=== PATIENT | female | born 1965 | race Caucasian/White ===

== ENCOUNTER 2018-08-13 18:16 | Inpatient (IN) ==
[2018-08-13] MEDS ORDERED: SOLU-MEDROL IV ONE (18:53)
[2018-08-13] MEDS ORDERED: DUONEB (A & A) INH ONE (18:53)
[2018-08-13] MEDS ORDERED: MORPHINE IV ONE (18:53)
[2018-08-13] MEDS ORDERED: VANCOMYCIN 1 GM/NS 1 GM/250 ML IVPB IV ONE (18:53)
[2018-08-13] MEDS ORDERED: ZOFRAN IV ONE (18:53)
[2018-08-13] MEDS ORDERED: ZOSYN 4.5 GM in NS 100 ML IV ONE (18:53)
[2018-08-13 20:16] LABS: BASO# 0.03 X1000 (0.0-0.2); BASO% 1.4 % (0.0-0.8); EOS# 0.02 X1000 (0.0-0.7); EOS% 0.9 % (0.0-10.0); HEMOGLOBIN 10.2 g/dL (12.0-16.0); IMM GRAN# 0.18 X1000 (0.0-0.04); IMM GRAN% 8.5 % (0.0-0.5); LYMPH# 0.95 X1000 (1.2-3.4); LYMPH% 44.8 % (20.5-51.1); MCH 30.9 PG (27-31); MCV 90.9 FL (81-99); MONO# 0.02 X1000 (0.11-0.59); MONO% 0.9 % (1.7-9.3); MPV 9.5 FL (7.4-10.4); NEUT# 0.92 X1000 (1.4-6.5); NEUT% 43.5 % (42.2-75.2); PLT 129 X1000 (130-400); RDW 14.9 % (11.5-14.5); WBC 2.12 X1000 (4.8-10.8)
[2018-08-13 20:23] LABS: INR 0.97; PROTIME 13.7 Seconds (11.0-16.0)
[2018-08-13 20:33] LABS: AGAP 11; ALB/GLOB RATIO 1.1; ALKALINE PHOSPHATASE 107 U/L (32-104); BUN 11 mg/dL (8-22); CHLORIDE 101 mmol/L (98-107); CK PROFILE 24 U/L (24-173); COSMO 276; CREATININE 0.7 mg/dL (0.5-0.9); ESTIMATED GFR > 60; GLUCOSE 151 mg/dL (70-104); GOT 26 U/L (10-30); GPT 23 U/L (10-36); MAGNESIUM 1.7 mg/dL (1.5-2.7); POTASSIUM 4.1 mmol/L (3.5-5.1); SODIUM 137 mmol/L (136-145); TCO2 25 mmol/L (25-35); TOTAL BILIRUBIN 0.72 mg/dL (0.20-1.00); TOTAL PROTEIN 7.8 g/dL (6.3-8.3)
[2018-08-13 20:50] LABS: URINE SOURCE CLEAN CATCH
[2018-08-13 20:53] LABS: BILIRUBIN URINE NEGATIVE (NEGATIVE); BLOOD URINE TRACE (NEGATIVE); COLOR YELLOW; GLUCOSE URINE NEGATIVE (NEGATIVE); KETONE URINE NEGATIVE (NEGATIVE); LEUKOCYTES URINE NEGATIVE (NEGATIVE); NITRITE URINE NEGATIVE (NEGATIVE); PROTEIN URINE TRACE mg/dL (NEGATIVE); SP GRAVITY URINE 1.021; TURBIDITY URINE CLEAR (CLEAR); UROBILINOGEN URINE NORMAL (NORMAL)
[2018-08-13 20:54] LABS: UR EPITHELIAL CELLS <10 /HPF (<10); URINE BACTERIA NEGATIVE /HPF; URINE RBC <10 /HPF (<10); URINE WBC <10 /HPF (<10)
[2018-08-14] MEDS ORDERED: TYLENOL PO PRN (01:12)
[2018-08-14] MEDS ORDERED: VANCOMYCIN IV PER PHARMACY MISC SCH (01:15)
[2018-08-14] MEDS ORDERED: VANCOMYCIN 1,150 MG in NS 250 ML IV ONE (02:00)
[2018-08-14] MEDS ORDERED: NS 500 ML ONE (02:49)
[2018-08-14] MEDS: ZOSYN 3.375 GM in NS 50 ML IV SCH ×4 (05:08→23:50)
[2018-08-14] MEDS: DUONEB (A & A) INH SCH ×4 (05:52→22:50)
[2018-08-14] MEDS: HUMULIN R SUBQ SCH ×4 (06:41→21:28)
[2018-08-14 07:20] LABS: BASO# 0.01 X1000 (0.0-0.2); BASO% 0.9 % (0.0-0.8); HEMATOCRIT 26.4 % (37.0-47.0); HEMOGLOBIN 8.8 g/dL (12.0-16.0); LYMPH# 0.36 X1000 (1.2-3.4); MCH 30.8 PG (27-31); MCHC 33.3 g/dL (33-37); MCV 92.3 FL (81-99); MONO# 0.03 X1000 (0.11-0.59); MONO% 2.8 % (1.7-9.3); MPV 9.6 FL (7.4-10.4); NEUT# 0.66 X1000 (1.4-6.5); NEUT% 62.3 % (42.2-75.2); PLT 104 X1000 (130-400); RBC 2.86 XMIL (4.2-5.4); RDW 14.9 % (11.5-14.5); WBC 1.06 X1000 (4.8-10.8)
--- NOTE | 2018-08-14 07:24 | EKG Report ---
Test Performed on : 08/14/2018 07:06:21 AM Test Reason : Fever,Lung CA,Small Pericardial Effusion Blood Pressure : / mmHG Vent. Rate : 079 BPM Atrial Rate : 079 BPM P-R Int : 192 ms QRS Dur : 094 ms QT Int : 412 ms P-R-T Axes : 033 012 018 degrees QTc Int : 472 ms Normal sinus rhythm. Normal ECG When compared with ECG of 13-JUL-2018 13:23, Nonspecific T wave abnormality no longer evident in Anterolateral leads Confirmed by Erasmo COWART, Rizwan ([id number]) on 08/14/2018 9:08:54 AM
[2018-08-14 08:07] LABS: BANDS 8 % (0-1); LYMPHS 32 % (21-51); MONO 4 % (1-9); SEGS 56 % (42-75)
--- NOTE | 2018-08-14 08:14 | Diag Imaging Result Doc PS360 ---
EXAM: CT THORAX W/CONTRAST 08/13/2018 HISTORY: Fever,Productive Cough,Crackles Bilaterally TECHNIQUE: This exam was performed using automated exposure control, adjustment of mA or kV according to patient size, and/or use of iterative reconstruction technique. COMMENT: There are patchy and nodular opacities particularly in the left upper lobe.There are similar opacities in the right lower lobe There is atelectatic appearing opacity in the left lower lobe. Compared to the previous study of 06/09/2018 these abnormalities were largely not present previously although there was some opacification in the lingula at that time. The parahilar mass which was present at the time the previous examination has improved markedly. The matted mediastinal adenopathy is also improved considerably. There is some posterior mediastinal adenopathy with a node on the left side on image 59 measuring almost 13 mm in size. This has diminished since the previous examination from 14 x 15 mm. Hepatic steatosis is again noted. The visualized portions of the abdomen are otherwise stable in appearance. There is marked callus formation around a fracture in the posterior left ninth rib. In retrospect this was present at the time the previous study without the callus formation. Sclerotic and apparent lytic changes in the lower portion of C7 and the transverse process of T1 on the right are noted which were not clearly present at the time the previous CT of 05/25/2018. There is an apparent fracture of the right transverse process of T1. There is apparent callous in the medial right posterior seventh rib. This was not present at the time the previous study. The possibility of a fracture at the time the previous examination this location cannot be excluded however. IMPRESSION: Bronchopneumonia. Markedly improved left perihilar and mediastinal mass, improved adenopathy. Healing ninth rib fracture on the left. Bony abnormalities in C7, T1, and the right seventh rib as described above. Given the healing fracture on the left side, the possibility of additional traumatic lesions cannot be excluded. The possibility of metastatic disease in the skeleton cannot be excluded. Hepatic steatosis. Electronically signed by Hector Mercado 08/14/2018 8:13 AM
--- NOTE | 2018-08-14 08:45 | HISTORY AND PHYSICAL ---
PRIMARY CARE PROVIDER: Dr. Prince Garcia in [place], [place]. DATE AND TIME: 08/13/2018 at 2215. CHIEF COMPLAINT: Fever. HISTORY OF PRESENT ILLNESS: Ms Barclay is a 53-year-old female, who has a past medical history most notable for her recent diagnosis of lung cancer with metastasis to liver and lymph nodes. Currently, receiving chemotherapy on Mondays, Tuesdays and Tuesday, and is followed by Dr. Jaffe. The patient states that on Tuesday she began not feeling well. She states that she has just progressively felt worse since then. She is reporting symptoms of dizziness, headache, productive cough and fevers which she states has reached up to as high as 100.6 at home. The patient also does report some chest discomfort when she coughs. She also has been having nausea with frequent episodes of vomiting. Patient states that she may have become choked at times due to vomiting and coughing at the same time. She states that on Tuesday when she began feeling not well, she did go ahead and take some Levaquin tablets that she had from a previous prescription. She states she did receive what sounds to be a Neupogen injection on and did see her family doctor on Tuesday for which she did write her a prescription for Levaquin to continue what she already previously start taking. The patient states that she did continue to feel worse and did present to the ER for further evaluation. She denies any chest pain, shortness of breath, abdominal pain, dysuria or urinary frequency. She denies any pain, numbness, tingling or swelling in the extremities. She denies any previous history of known gastrointestinal bleeding or any history of having DVT or pulmonary embolism. Upon evaluation in the ER, the patient did have a low-grade temperature on arrival of 99.8. She was tachycardic as well with a heart rate of 135. Respirations were 20, blood pressure 114/76 and was 95% on room air. The patient's laboratories revealed that she did have a neutropenia noted with a white blood cell count of 2120. She does have an absolute neutrophil count of 1102. She is a little anemic as well. She is hemodynamically stable at this time with a hemoglobin of 10.2 and an hematocrit of 30. Her blood sugars were pretty unremarkable, she was slightly hyperglycemic with a glucose level of 181. Given her respiratory symptoms, I am going to go ahead and get a CT of the thorax with contrast which did show a significant interval improvement of left hilar mass and a mediastinal adenopathy. The bony osseous lesion is similar to previous study. There was a new focal right lower lobe consolidation. We did obtain a blood culture, sputum culture and urine culture. The patient has been placed with antibiotic coverage of Vancomycin and Zosyn. The patient has reported he had nausea and vomiting and states she have may have become choked during her vomiting episode. Given this, we did decide to give her coverage from Zosyn for possible aspiration pneumonia. The patient was then placed on inpatient admission to the medical floor for treatment and evaluation of a possible pneumonia, the findings of a right lower lobe consolidation, fever and neutropenia. REVIEW OF SYSTEMS: A 14 point review of systems was conducted with the patient and all were negative. All pertinent positives mentioned in the HPI. PAST MEDICAL HISTORY: 1. Hypertension. 2. Anxiety. 3. Diabetes Mellitus type 2. 4. Recent diagnosis of lung cancer with metastasis to liver and lymph nodes. She is currently receiving chemotherapy on Mondays, Tuesdays, and Wednesdays with Dr. Jaffe. PAST SURGICAL HISTORY: 1. Cervical fusion in the neck. 2. Tummy tuck in 2015. 3. Cholecystectomy in 2002. 4. Tubal ligation in 1990. 5. Lung biopsy which was performed in June. SOCIAL HISTORY: The patient is a former smoker. She quit smoking three years ago. There is no known alcohol or drug use. FAMILY HISTORY: Positive for her mother having diabetes mellitus. Her father secondary to mesothelioma lung cancer. This was thought to be secondary to environmental exposure from where he worked for 24 years. She does have one sister who is currently being treated for breast cancer. ALLERGIES: Latex stating it causes her to have skin irritation. HOME MEDICATIONS: 1. Coreg 25 mg p.o. b.i.d. 2. Levaquin, 500 mg p.o. daily. 3. Reglan 10 mg p.o. q.6 h. p.r.n. for nausea. 4. Zofran 4 mg p.o. q.6 h. p.r.n. 5. Oxycodone sustained release p.o. q.12 h. 6. Promethazine/codeine 6.25/10 mg per 5 mL suspension. 5 mL p.o. q.4 h. p.r.n. for cough. 7. Phenergan 25 mg p.o. q.6 h. p.r.n. for nausea. 8. Kombiglyze XR 09/999 mg tablet, 1000 mg p.o. b.i.d. DIAGNOSTIC DATA/LABORATORY RESULTS: White blood cell count is 2120. Hemoglobin 10.2, hematocrit 30. Platelet count is 129,000. Absolute neutrophil count is 1102. PT 13.7, INR 0.9, PTT is 32. Sodium 137, potassium 4.1, chloride 101, serum bicarb is 25, BUN 11, creatinine 0.7, glucose 151, calcium 9, magnesium 1.7. Liver function tests were within normal limits. Her alkaline phosphatase is slightly elevated at 107, CK 24, troponin less than 0.01. Plasma lactate is 1.4. Urinalysis obtained via clean catch with positive for trace protein and trace blood. It was negative for glucose, ketones, nitrite, bilirubin, leukocytes, white blood cells and bacteria. A CT of the chest and thorax showed significant improvement of left hilar mass and mediastinal adenopathy. Also was noted to suspect bony osseous lesions similar to previous study. There was noted a new focal right lower lobe consolidation. There is a stable fatty liver. There was also noted to be a small pericardial effusion. PHYSICAL EXAMINATION: VITAL SIGNS: Temperature 98.1, heart rate 98, respirations 16, blood pressure 111/69, oxygen saturation is 97% on nasal cannula at 3 L. GENERAL: Ms. Barclay is a very pleasant, 53-year-old female. She was resting in the ER stretcher. She was in no acute distress. She was awake, alert, and able to answer questions appropriately. HEENT: Head is atraumatic, normocephalic. Pupils are equal, round, reactive to light, were 3 mm bilaterally and brisk. Oral mucosa is moist. Oropharynx clear. NECK: Supple. Trachea midline. CARDIOVASCULAR: The patient has S1-S2 present. No murmurs, gallops, or rubs appreciated with a regular rate and rhythm. PULMONARY: Patient has symmetrical chest expansion bilaterally. Lung sounds in bilateral full gusman did sound coarse. She does have crackles noted in upper and mid lung gusman. She does have diminished lung sounds noted in bilateral bases. ABDOMEN: Soft, nontender. Nondistended. Bowels sounds are present in all four quadrants and normoactive. EXTREMITIES: No cyanosis, clubbing, or edema noted. Pulse and sensory were intact in all extremities. Radial pulses and pedal pulses are 2+ bilaterally. INTEGUMENTARY: The patient's skin is pink, warm and dry. NEUROLOGIC: The patient is alert and oriented to person, place, time and situation. She is able to move all extremities. She does not have any focal neurological deficits noted. ASSESSMENT AND PLAN: 1. Neutropenia. The patient reports that she has been having low grade fevers, though she did have a reading one day that got as high as 100.6. She does have associated symptoms of fever, productive cough, abnormal lung sounds as described above with findings on CT of her right lower lobe consolidation. We have placed her with antibiotic coverage of Zosyn and vancomycin for possible pneumonia. Her blood culture, sputum culture and urine culture have all been obtained. We have placed on neutropenic precautions and we will continue to follow closely. 2. Right lower lobe consolidation. Given the patient's reported symptoms we are going to go ahead and treat her for possible pneumonia. We did place her with antibiotic coverage of vancomycin and Zosyn given that she may have possible aspiration. The patient has had reported several episodes of nausea and vomiting and did state that she has become choked at times during these episodes. As mentioned above. We have obtained blood cultures and sputum cultures. We will await those results. Continue to follow. We will continue with aggressive pulmonary toilet with incentive spirometry q.2 h of turn, cough and deep breathing, scheduled DuoNeb treatments, as well as Mucinex Tessalon Perles for cough. We will continue to follow her respiratory status closely. 3. Nausea and vomiting. This may be likely secondary to administration of chemotherapy. The patient does not have any abdominal pain. She denies any abdominal tenderness or pain on palpation. Bowel sounds were present in the upper quadrant. She has not had any diarrhea either. We have placed p.r.n. medicines for nausea and vomiting. 4. Metastatic lung cancer. We have placed a consult with Dr. Jaffe and we will await his evaluation and further recommendations for management. 5. Hypertension. We will continue her regularly prescribed Coreg. 6. Diabetes mellitus type 2. We have placed the patient with a sliding scale insulin per low dose protocol. We will do pattern blood sugars. At this time we have held her regularly prescribed Kombiglyze due to she received IV contrast for her CT thorax. 7. Deep venous thrombosis prophylaxis. We have provided SCDs. The patient has been placed on medical telemetry. She will have vital signs q.4 h., intake and output. We will repeat a CBC and CMP in the morning. There was an incident of a small pericardial effusion on her CT of the thorax. Given this we will order for an echocardiogram and an EKG to be performed as the patient is now reporting some chest discomfort when she coughs. When she is not coughing, she is denying any chest pain. Cardiac enzymes were negative. Other orders and recommendations pending hospital course, diagnostic studies and physician evaluation. Dictated by WINDY Garza for Shola Ceballos MD Addendum: Patient seen and examined by myself. Agree with WINDY note. It reflects my assessment and plan. Patient is being admitted for neutropenic fever. Will star broad spectrum IV antibiotics and will consult her primary oncologist. Will monitor patient closely. cc: Shola Ceballos MD MTD
[2018-08-14 10:00] LABS: AGAP 10; ALB/GLOB RATIO 0.9; ALBUMIN 3.7 g/dL (3.5-5.0); ALKALINE PHOSPHATASE 100 U/L (32-104); BUN 15 mg/dL (8-22); CALCIUM 8.8 mg/dL (8.8-10.2); CHLORIDE 99 mmol/L (98-107); COSMO 275; CREATININE 0.7 mg/dL (0.5-0.9); ESTIMATED GFR > 60; GLUCOSE 299 mg/dL (70-104); GOT 21 U/L (10-30); GPT 21 U/L (10-36); POTASSIUM 4.4 mmol/L (3.5-5.1); SODIUM 131 mmol/L (136-145); TCO2 22 mmol/L (25-35); TOTAL BILIRUBIN 0.44 mg/dL (0.20-1.00); TOTAL PROTEIN 7.6 g/dL (6.3-8.3)
--- NOTE | 2018-08-14 12:04 | PROGRESS NOTE ---
DATE: 08/14/2018 SUBJECTIVE: This patient is feeling better compared with yesterday. She is still complaining of shortness of breath and cough. Apparently, she started having symptoms last week. She went to her primary care doctor and she was treated for bronchitis. She received levofloxacin but over the weekend, she got worse and she decided to come to the hospital. She does have a history of lung cancer with metastasis to the liver and lymph nodes. She is currently receiving chemotherapy. Hematology/oncology department has been consulted. OBJECTIVE: Vital Signs: Temperature 97.6 degrees, pulse 103, respiratory rate 18, blood pressure 105/70, oxygen saturation 99 on 2 L of nasal cannula. HEENT: Head normocephalic. No trauma. PERRLA. Neck: Supple. No JVD. No masses. Central trachea. Chest: Decreased breath sounds, mostly at the bases with bilateral rhonchi, some scattered expiratory wheezing bilaterally. Abdomen: Soft, nontender, nondistended. No hepatosplenomegaly. Extremities: No edema, no clubbing, no cyanosis. Neurological Examination: The patient is alert. She is oriented x3. No focal deficits. Laboratory: WBC 1, hemoglobin 8.8, hematocrit 26.4, platelets 104,000. Sodium 131, potassium 4.4, chloride 99, bicarbonate 22, BUN 15, creatinine 0.7, glucose 299, calcium 8.8. ASSESSMENT AND PLAN: 1. Pneumonia. We have placed this patient on broad-spectrum antibiotics and she feels better now but she is still complaining of shortness of breath and cough. We will continue with the same management. We will continue to monitor this patient closely. Continue breathing treatments, incentive spirometer, cough medication, and oxygen. 2. Pancytopenia. We will continue to monitor this patient. We will get lab work on a daily basis. Hematology/oncology has been consulted and Granix has been placed in the orders for this patient. We will monitor. 3. Nausea and vomiting, resolved. We will continue with nausea medication. 4. Metastatic lung cancer. Aware. Dr. Jaffe will follow this patient. It looks like the size of the tumor decreased. 5. Hypertension. Continue with her regular prescribed medication. 6. Type 2 diabetes. Continue sliding scale insulin and pattern of blood sugar. 7. Deep vein thrombosis prophylaxis with sequential compression devices. cc: Kemal Leslie MD
[2018-08-14] MEDS: GRANIX SUBQ SCH (12:17)
[2018-08-14] MEDS: MUCINEX PO SCH ×2 (12:17→20:28)
[2018-08-14] MEDS: PERCOCET-5 PO PRN ×2 (12:39→20:28)
[2018-08-14] MEDS ORDERED: VANCOMYCIN 1,850 MG in NS 500 ML IV SCH (14:00)
[2018-08-14] MEDS: COREG PO SCH ×2 (17:01→21:28)
[2018-08-14] MEDS: NS 1,000 ML IV SCH ×2 (17:16→17:17)
[2018-08-14] MEDS: VANCOMYCIN 1,500 MG in NS 250 ML IV SCH (20:29)
--- NOTE | 2018-08-14 20:32 | HEMO/ONC CONSULTATION ---
DATE: 08/14/2018 CHIEF COMPLAINT: We have been consulted for further evaluation of the patient's right lower lobe pneumonia with neutropenia, fever, and management of her small cell lung cancer. HISTORY OF PRESENT ILLNESS: Ms. Barclay is a 53-year-old female who presented to the ER complaining of a low-grade temperature of 100.6 degrees while at home. The patient says she had been having some dizziness, headaches, productive cough as well. Patient also says she has some chest discomfort when she coughs. The patient also had increased amounts of nausea with frequent episodes of vomiting. The patient went ahead and started Levaquin at home. The patient continued to feel worse and came to the ER for further evaluation, and was admitted at that time for neutropenic fever and right lower lobe pneumonia. Ms. Barclay is known to us in our clinic where she follows up for her extensive end-stage small cell lung cancer. The patient had a CT scan that revealed a left upper lobe mass measuring 8.3 x 10 cm with medi[address]inal invasion. CT of the abdomen and pelvis revealed retrocrural peripancreatic lymph nodes and peripherally enhancing liver lesions, nodule of the liver with splenomegaly suggestive of cirrhosis. The patient was started on chemotherapy with carboplatin, etoposide, and Tecentriq on 06/16/2018. The patient received her 3rd cycle of treatment on 08/07/2018. She did receive a Udenyca injection on 08/10/2018. PAST MEDICAL HISTORY: 1. Hypertension. 2. Diabetes mellitus type 2. 3. Metastatic small-cell lung cancer. PAST SURGICAL HISTORY: Cervical fusion of the neck, tummy tuck, cholecystectomy, tubal ligation, and a lung biopsy. SOCIAL HISTORY: Former smoker, quit smoking approximately 3 years ago. No alcohol or illicit drug use. FAMILY HISTORY: Diabetes mellitus, mesothelioma, lung cancer, and a sister currently being treated for breast cancer. ALLERGIES: To latex. HOME MEDICATIONS: Coreg, Levaquin, Reglan, Zofran, oxycodone, promethazine/codeine, Phenergan, Kombiglyze XR. REVIEW OF SYSTEMS: Negative or as mentioned in the HPI. PHYSICAL EXAMINATION: Vital Signs: Temperature 97.6 degrees, heart rate 83, respiratory rate 20, blood pressure 106/66, saturating 95% on nasal cannula. General: The patient is awake, lying in bed. No acute distress noted. HEENT: Anicteric. Pupils PERRLA. Mucous membrane appear to be moist. Neck: Supple. Trachea midline. No JVD. Lymph Node Survey: Without palpable lymphadenopathy. Cardiovascular: S1, S2. Regular rate and rhythm. Chest: Bilateral breath sounds coarse bilaterally. The patient has some crackles noted. Abdomen: Soft, nontender. Bowel sounds present in all 4 quadrants. Skin: Warm, dry, and intact. Neurologic: Alert and oriented x3. No focal deficits noted. LABORATORY DATA: White blood cell count is 1.06, hemoglobin 8.9, hematocrit 26.4, platelets are 104,000, ANC of 660. Potassium 4.4, BUN 15, creatinine 0.7. CTA of chest shows bronchopneumonia, markedly improved left perihilar mediastinal mass, improved adenopathy, healing ninth rib fracture on the left, bony abnormalities in C7-T1. ASSESSMENT AND PLAN: 1. Extensive small-cell lung cancer: The patient received her third cycle of etoposide, carboplatin, and Tecentriq on 08/07/2018. The patient had been tolerating treatment relatively well. At this time, we will continue to monitor and let the patient heal. 2. Neutropenic fever: The patient did receive Udenyca shot on 08/10/2018. Despite that, the patient developed pneumonia with fever. Patient will receive Neupogen today and tomorrow. Then we will reevaluate after that if she needs further Neupogen shots. 3. Right lower lobe pneumonia: Continue antibiotics as ordered by primary medical team. Continue with oxygen, as ordered. We will continue to monitor closely. 4. Nausea and vomiting: Continue with as needed medications as ordered. We will continue to monitor closely. 5. Hypertension: Aware. Continue recommendations per primary medical team. 6. Diabetes mellitus type 2.: Continue recommendations per primary medical team. 7. Deep venous thrombosis prophylaxis: Continue sequential compression devices. Continue to have patient get out of bed as much as possible. Plan of care discussed with Dr. Casillas. Dictated by WINDY Montes for Yefri Casillas MD As above. Yefri casillas MD. cc: WINDY Montes MD [facility]
[2018-08-15] MEDS: DUONEB (A & A) INH SCH ×4 (04:00→22:10)
[2018-08-15] MEDS: ZOSYN 3.375 GM in NS 50 ML IV SCH ×4 (06:41→23:11)
[2018-08-15] MEDS: HUMULIN R SUBQ SCH ×3 (07:00→16:12)
[2018-08-15 07:14] LABS: AGAP 10; ALBUMIN 3.2 g/dL (3.5-5.0); ALKALINE PHOSPHATASE 78 U/L (32-104); BUN 17 mg/dL (8-22); CALCIUM 8.5 mg/dL (8.8-10.2); CHLORIDE 107 mmol/L (98-107); COSMO 283; CREATININE 0.7 mg/dL (0.5-0.9); ESTIMATED GFR > 60; GLUCOSE 141 mg/dL (70-104); GOT 16 U/L (10-30); GPT 17 U/L (10-36); POTASSIUM 3.8 mmol/L (3.5-5.1); SODIUM 140 mmol/L (136-145); TCO2 23 mmol/L (25-35); TOTAL BILIRUBIN 0.18 mg/dL (0.20-1.00); TOTAL PROTEIN 6.3 g/dL (6.3-8.3)
[2018-08-15 07:20] LABS: EOS# 0.03 X1000 (0.0-0.7); EOS% 2.1 % (0.0-10.0); HEMOGLOBIN 7.5 g/dL (12.0-16.0); LYMPH# 1.16 X1000 (1.2-3.4); LYMPH% 80.6 % (20.5-51.1); MCH 30.7 PG (27-31); MCHC 32.6 g/dL (33-37); MCV 94.3 FL (81-99); MONO# 0.04 X1000 (0.11-0.59); MONO% 2.8 % (1.7-9.3); MPV 9.5 FL (7.4-10.4); NEUT% 14.5 % (42.2-75.2); PLT 66 X1000 (130-400); RBC 2.44 XMIL (4.2-5.4); RDW 14.9 % (11.5-14.5); WBC 1.44 X1000 (4.8-10.8)
[2018-08-15 07:21] LABS: NEUT# 0.21 X1000 (1.4-6.5)
[2018-08-15] MEDS: MUCINEX PO SCH ×2 (08:02→21:32)
[2018-08-15] MEDS: COREG PO SCH ×3 (08:02→21:32)
[2018-08-15] MEDS: PERCOCET-5 PO PRN ×3 (08:03→21:32)
[2018-08-15] MEDS: GRANIX SUBQ SCH (08:12)
--- NOTE | 2018-08-15 10:01 | HEMO/ONC PROGRESS NOTE ---
DATE: 08/15/2018 SUBJECTIVE: Patient says she feels slightly better. Still has some shortness of breath on cough. OBJECTIVE: Vital Signs: Temperature 97.5 degrees, heart rate 87, respiratory rate 16, blood pressure 106/59, satting 100% on nasal cannula. General: Patient is awake, lying in bed, no acute distress noted. HEENT: Anicteric. Pupils PERRLA. Mucous membranes moist. Cardiovascular: S1, S2. Regular rate and rhythm. Chest: Bilateral breath sounds. Clear to auscultation. Abdomen: Soft, nontender. Bowel sounds present in all 4 quadrants. Neurologic: Alert and oriented x3. No focal deficits noted. LABORATORY DATA: White blood cell count 1.44, hemoglobin 7.5, hematocrit 23.0, platelets are 66. ANC is 210. Potassium 3.8, BUN 17, creatinine 0.7. ASSESSMENT AND PLAN: 1. Small cell lung cancer: Continue to monitor as patient gets over pneumonia. 2. Neutropenic fever: Patient received Neupogen yesterday, received again today. Continue to monitor closely for any further fevers. No fevers in the last 24 hours. We will continue to monitor closely. 3. Pancytopenia: Caused by her chemotherapy last week. Continue to monitor transfuse as needed. 4. Right lower lobe pneumonia: Continue antibiotics as ordered. 5. Nausea and vomiting. Nausea and vomiting has improved. Continue p.r.n. medications as ordered. 6. Deep venous thrombosis prophylaxis. Continue to get the patient up out of bed as much as possible. Dictated by WINDY Montes for Yefri Casillas MD As above. Persistent neutropenia. Continue supportive care and antibiotics. Doing better. Afebrile. Yefri casillas MD cc: WINDY Montes MD [facility]
--- NOTE | 2018-08-15 11:21 | ECHO REPORT ---
ORDER DATE: 08/14/2018 INDICATION: Pericardial effusion noted on CT, pneumonia, metastatic lung cancer. FINDINGS: 1. The right atrium appears normal size at 3.7 cm. 2. Mild tricuspid regurgitation, RV systolic pressure of 34. 3. Normal RV size and systolic function. 4. Trace pulmonic insufficiency. 5. The left atrial size appears normal. The dimension is 4 cm, but the volume index is 16. 6. No mitral valve prolapse. Mild mitral regurgitation. 7. Normal LV size, end-diastolic dimension of 3.8. Mild left ventricular hypertrophy with a posterior and interventricular septal wall thickness of 1.3 cm each. Normal LV systolic function. Estimated EF of 60% to 65% with normal wall motion. 8. The aortic valve opens well. It is trileaflet. There is no evidence of stenosis or insufficiency. 9. The aorta appears normal in visualized segments. 10. There is a predominantly anterior echo-free space identified, which appears most consistent with pericardial fat. There is no clear evidence of a significant pericardial effusion with no clear evidence of tamponade-type physiology. If there is a pericardial effusion present (as suggested on CT), it is extremely small and does not seem clinically significant. cc: Kody Mejia MD MTDD
--- NOTE | 2018-08-15 11:21 | PROGRESS NOTE ---
DATE: 08/15/2018 SUBJECTIVE: The patient reports breathing a little bit better. Denies any fever or chills. No acute issues noted as per nursing staff overnight. OBJECTIVE: Vital signs: Temperature 97.5, heart rate 89, respiratory rate 16, blood pressure 106/59, O2 saturation is 100% on 2 L nasal cannula. General: This is a chronically ill appearing 53-year-old female lying in bed, in no acute distress. HEENT: Head is normocephalic and atraumatic with mucus membranes dry. Neck: No JVD noted, no carotid bruit, no lymphadenopathy, no thyromegaly. Cardiovascular: S1, S2 heard. No murmurs, gallops or rubs. Regular rate and rhythm. Respiratory: Good breath sounds, mostly at both bases, bilateral rhonchi and expiratory wheezing. The patient is not using any accessory muscles or work of breathing. Abdomen: Soft. Nontender to palpation. Not distended. Bowel sounds present. No organomegaly. Extremities: No cyanosis, clubbing or edema. Peripheral pulses present in both legs. Neurologic: The patient is alert and oriented x3, moves all four extremities. LABORATORY DATA: White cell count 1.44 with hemoglobin 7.5, hematocrit 23.0, platelets 66,000. Neutrophil count 0.21. BMP - glucose 141. ASSESSMENT AND PLAN: 1. Acute bronchopneumonia. The patient is on vancomycin and Zosyn. Clinically this patient is feeling better. Will continue with same management. 2. Pancytopenia most likely related to chemotherapy. Patient receiving Granix, unfortunately his white cell count is still low as well as his neutrophil count. Will continue to check basic metabolic profile. Also, hemoglobin is low at 7.5, am concerned that her first hemoglobin was 10.1, definitely will transfuse one unit of blood. 3. Nausea and vomiting, getting better definitely. 4. Metastatic lung cancer. Dr. Jaffe is following with this patient. Will follow recommendations. 5. Hypertension. Blood pressure is under control. Will continue with same management. 6. Diabetes mellitus, type 2. Will continue with sliding scale insulin and Accu-Chek before meals and also at bedtime. 7. Deep venous thrombosis prophylaxis with sequential compression devices. cc: Shola Ceballos MD [facility]ydia
[2018-08-15] MEDS ORDERED: NS 500 ML IV SCH (15:00)
[2018-08-15] MEDS: VANCOMYCIN 1,500 MG in NS 250 ML IV SCH (19:47)
[2018-08-15] MEDS: TESSALON PO PRN (21:39)
[2018-08-16] MEDS: DUONEB (A & A) INH SCH ×4 (03:15→21:30)
[2018-08-16] MEDS: HUMULIN R SUBQ SCH ×5 (03:35→21:16)
[2018-08-16] MEDS: ZOSYN 3.375 GM in NS 50 ML IV SCH ×4 (06:05→21:14)
[2018-08-16 07:03] LABS: AGAP 7; BUN 13 mg/dL (8-22); CALCIUM 8.6 mg/dL (8.8-10.2); CHLORIDE 105 mmol/L (98-107); COSMO 278; CREATININE 0.6 mg/dL (0.5-0.9); ESTIMATED GFR > 60; GLUCOSE 140 mg/dL (70-104); POTASSIUM 3.6 mmol/L (3.5-5.1); SODIUM 138 mmol/L (136-145); TCO2 26 mmol/L (25-35)
[2018-08-16 07:23] LABS: EOS# 0.03 X1000 (0.0-0.7); EOS% 1.8 % (0.0-10.0); HEMATOCRIT 26.5 % (37.0-47.0); HEMOGLOBIN 8.7 g/dL (12.0-16.0); LYMPH# 1.39 X1000 (1.2-3.4); LYMPH% 82.2 % (20.5-51.1); MCH 30.7 PG (27-31); MCHC 32.8 g/dL (33-37); MCV 93.6 FL (81-99); MONO# 0.15 X1000 (0.11-0.59); MONO% 8.9 % (1.7-9.3); MPV 9.9 FL (7.4-10.4); NEUT% 7.1 % (42.2-75.2); PLT 48 X1000 (130-400); RBC 2.83 XMIL (4.2-5.4); RDW 14.8 % (11.5-14.5); WBC 1.69 X1000 (4.8-10.8)
[2018-08-16 08:04] LABS: NEUT# 0.12 X1000 (1.4-6.5)
--- NOTE | 2018-08-16 08:24 | HEMO/ONC PROGRESS NOTE ---
DATE: 08/16/2018 SUBJECTIVE: Patient says she still continues to feel better. Shortness of breath continues to improve. Patient denies any fevers or chills. OBJECTIVE: Vital Signs: Temperature 98.4, heart rate 90, respiratory rate 20, blood pressure 113/72, sat 100% on room air. General: Patient is awake, lying in bed, in no acute distress noted. HEENT: Anicteric. Pupils PERRLA. Mucous membranes moist. Cardiovascular: S1, S2. Regular rate and rhythm. Chest: Bilateral breath sounds clear to auscultation. Abdomen: Soft, nontender. Bowel sounds present in all 4 quadrants. Neurologic: Alert and oriented x3. No focal deficits noted. LABORATORY DATA: White blood cell count 1.69, hemoglobin 8.7, hematocrit 26.5, platelets are 48,000. ANC is 120. Potassium 3.6, BUN 13, creatinine 0.6. ASSESSMENT AND PLAN: 1. Small-cell lung cancer: Continue to monitor as patient improves. 2. Neutropenia: The patient will continue on her Granix daily until ANC is greater than 1,000. The patient denies any fevers. We will continue to monitor closely. 3. Pancytopenia: Caused by chemotherapy last week. Continue to monitor closely. Transfuse as needed. 4. Pneumonia: Continue antibiotics as ordered. 5. Deep venous thrombosis prophylaxis: Continue out of bed as much as possible. 6. Supportive care: The patient will continue protein shakes as instructed. The patient will continue exercises. Dictated by WINDY Montes for Yefri Jaffe MD As above. Patient continues to be neutropenic. Continue Neupogen. Continue current management. Yefri Jaffe M.D. [facility]
[2018-08-16 08:26] LABS: EOS 2 % (1-10); LYMPHS 78 % (21-51); MONO 8 % (1-9); SEGS 10 % (42-75)
[2018-08-16] MEDS: GRANIX SUBQ SCH (09:29)
[2018-08-16] MEDS: MUCINEX PO SCH ×2 (09:30→21:16)
[2018-08-16] MEDS: TESSALON PO PRN ×3 (09:38→21:16)
[2018-08-16] MEDS: COREG PO SCH ×2 (09:39→21:15)
[2018-08-16] MEDS: VANCOMYCIN 1,500 MG in NS 250 ML IV SCH (14:16)
[2018-08-16] MEDS: MYCOLOG CREAM TOP SCH ×2 (14:17→17:01)
--- NOTE | 2018-08-16 17:44 | PROGRESS NOTE ---
DATE: 08/16/2018 INTERVAL HISTORY: The patient still has some largely nonproductive cough. No further dyspnea. Afebrile overnight. No acute events. No new complaints. REVIEW OF SYSTEMS: Twelve-point review of systems negative except as per interval history. LABORATORY DATA: WBC 1.69, hemoglobin 8.7, hematocrit 26.5, absolute neutrophil count 120. Basic metabolic panel unremarkable aside from glucose 149 PHYSICAL EXAMINATION: Vitals: T-max 98.4 degrees, pulse 91, respirations 20, blood pressure 115/75, O2 saturation 97% on room air. General: No acute distress. Chronically ill-appearing. Vitals: As above. HEENT: Normocephalic, atraumatic. Moist mucous membranes. Neck: No cervical adenopathy. Cardiovascular: Regular rate and rhythm. No murmurs, rubs, or gallops. Pulmonary: Good air entry. No wheezing at this time. A few scattered rhonchi. No accessory muscle use or increased work of breathing. Abdomen: Soft, nontender, nondistended. Bowel sounds positive. Extremities: Peripheral pulses intact. No clubbing, cyanosis, or edema. Neurologic: Cranial nerves grossly intact. No focal deficits identified. Psychiatric: Slightly tearful, but otherwise normal mood and affect. Awake, alert, and oriented x3. Skin: No rashes or lesions identified. ASSESSMENT AND PLAN: 1. Pneumonia. Patient remains on vancomycin and Zosyn. The patient was much improved symptomatically. Saturating well on room air. Continue broad-spectrum antibiotics for now given neutropenia. Once white count improves, can likely transition to p.o. antibiotics. 2. Pancytopenia, likely chemo related. The patient receiving G-CSF, but counts remain quite low. Remains still severe neutropenic currently. Slightly worsened today. Oncology following. Planning on continuing Granix doses neutrophils improve. 3. Nausea and vomiting, resolved. 4. Stage IV lung cancer following with Dr. Jaffe. Patient with recent chemotherapy. 5. Hypertension, reasonable control so far. Continue to monitor. 6. Diabetes mellitus. Good control blood sugars so far. Continue SSI and monitor. 7. Situational depression. Patient requesting that we restart her Zoloft. We will clarify home dose and restart.
[2018-08-16] MEDS: PERCOCET-5 PO PRN (21:14)
[2018-08-17] MEDS: ZOSYN 3.375 GM in NS 50 ML IV SCH ×4 (01:16→21:42)
[2018-08-17] MEDS: DUONEB (A & A) INH SCH ×4 (03:45→21:25)
[2018-08-17] MEDS: PERCOCET-5 PO PRN ×2 (04:19→11:19)
[2018-08-17] MEDS: ZOFRAN IV PRN (05:35)
[2018-08-17 08:01] LABS: BASO# 0.01 X1000 (0.0-0.2); BASO% 0.4 % (0.0-0.8); EOS# 0.03 X1000 (0.0-0.7); EOS% 1.3 % (0.0-10.0); HEMATOCRIT 26.6 % (37.0-47.0); IMM GRAN# 0.17 X1000 (0.0-0.04); IMM GRAN% 7.3 % (0.0-0.5); LYMPH# 1.53 X1000 (1.2-3.4); LYMPH% 65.4 % (20.5-51.1); MCH 31.3 PG (27-31); MCHC 33.8 g/dL (33-37); MCV 92.4 FL (81-99); MONO# 0.43 X1000 (0.11-0.59); MONO% 18.4 % (1.7-9.3); MPV 10.7 FL (7.4-10.4); NEUT% 7.2 % (42.2-75.2); PLT 47 X1000 (130-400); RBC 2.88 XMIL (4.2-5.4); RDW 14.5 % (11.5-14.5); WBC 2.34 X1000 (4.8-10.8)
[2018-08-17 08:05] LABS: AGAP 11; BUN 11 mg/dL (8-22); CALCIUM 8.8 mg/dL (8.8-10.2); CHLORIDE 102 mmol/L (98-107); COSMO 278; CREATININE 0.7 mg/dL (0.5-0.9); ESTIMATED GFR > 60; GLUCOSE 155 mg/dL (70-104); POTASSIUM 3.3 mmol/L (3.5-5.1); SODIUM 138 mmol/L (136-145); TCO2 25 mmol/L (25-35)
[2018-08-17 08:30] LABS: LYMPHS 66 % (21-51); MONO 4 % (1-9); NRBC 1 % (0-0); SEGS 28 % (42-75)
--- NOTE | 2018-08-17 08:34 | HEMO/ONC PROGRESS NOTE ---
DATE: 08/17/2018 SUBJECTIVE: Shortness of breath continues to improve. Patient continues to have cough. No new complaints. OBJECTIVE: Vital Signs: Temperature 97.8 degrees, heart rate 89, respiratory rate 18, blood pressure 116/73, satting 96% on room air. General: Patient is awake, lying in bed, no acute distress noted. HEENT: Anicteric. Pupils PERRLA. Mucous membranes moist. Cardiovascular: S1, S2. Regular rate and rhythm. Chest: Bilateral breath sounds. Clear to auscultation. Abdomen: Soft, nontender. Bowel sounds present all 4 quadrants. Neurologic exam: Alert and oriented x3. No focal deficits noted. LABORATORY DATA: White cell count 2.34, hemoglobin 9.0, hematocrit 26.6, platelets are 47. ANC is 170, potassium 3.3, BUN 11, creatinine 0.7. ASSESSMENT AND PLAN: 1. Small cell lung cancer: Continue to monitor outpatient for pneumonia. 2. Neutropenia: The patient will continue getting her Granix until ANC is greater than 1000. The patient denies any fevers. Continue to monitor closely. 3. Pneumonia: Continue antibiotics as ordered per primary medical team. 4. Pancytopenia: Continue to monitor counts, most likely caused by her chemotherapy last week. 5. Deep venous thrombosis prophylaxis: Continue to have patient get out of bed as much as possible. Dictated by WINDY Montes for Yefri Jaffe MD Patient seen and examined. As above. Patient continues to have neutropenia. Continue with next. Continue antibiotics. She is afebrile. Symptomatically feels better. Thrombocytopenia, most likely due to chemotherapy. Hopefully we can discharge were as soon as her ANC improves. Yefri Jaffe M.D. [facility]
[2018-08-17] MEDS: HUMULIN R SUBQ SCH ×3 (08:43→17:15)
[2018-08-17] MEDS ORDERED: FLEXERIL PO PRN (10:54)
[2018-08-17] MEDS: GRANIX SUBQ SCH (11:44)
[2018-08-17] MEDS: VANCOMYCIN 1,500 MG in NS 250 ML IV SCH (11:44)
[2018-08-17] MEDS: MUCINEX PO SCH ×2 (11:45→21:42)
[2018-08-17] MEDS: ATIVAN PO PRN ×2 (11:59→20:26)
[2018-08-17] MEDS: TESSALON PO PRN ×2 (11:59→21:42)
[2018-08-17] MEDS ORDERED: NS 1,000 ML ONE (12:08)
[2018-08-17] MEDS: COREG PO SCH ×2 (12:10→21:43)
[2018-08-17] MEDS: MYCOLOG CREAM TOP SCH ×3 (12:11→17:15)
[2018-08-17] MEDS: PERCOCET-10 PO PRN ×2 (15:22→20:26)
--- NOTE | 2018-08-17 15:56 | PROGRESS NOTE ---
DATE: 08/17/2018 INTERVAL HISTORY: The patient reporting some worsening of her chronic low back pain. Nonproductive cough still present. Still no dyspnea. Afebrile. No acute events overnight. No other new complaints. REVIEW OF SYSTEMS: Twelve point review of systems negative, except as per interval history. LABS: WBC 2.34, hemoglobin 9, hematocrit 26.6, platelets 47. Sodium 138, potassium 3.3, creatinine 0.7, glucose 155. VITALS: T-max 98.4 degrees, pulse 95, respirations 22, blood pressure 145/82, O2 saturation 96% on room air. PHYSICAL EXAMINATION: General: No acute distress. Chronically ill appearing. Vital Signs: Vitals as above. HEENT: Normocephalic, atraumatic. Moist mucous membranes. Neck: No cervical adenopathy. Cardiovascular: Regular rate and rhythm. No murmur, rub or gallop. Pulmonary: Good air entry. Still a few scattered rhonchi, but no wheezing or rales. No accessory muscle use or increased work of breathing. Abdomen: Soft, nontender, nondistended. Bowel sounds positive. Extremities: Peripheral pulses intact. No clubbing, cyanosis, or edema. Neurologic: Cranial nerves grossly intact. No focal deficits identified. Psychiatric: Intermittently slightly tearful, but largely normal mood and affect. Awake, alert, oriented x3. Skin: No new rashes or lesions identified. ASSESSMENT AND PLAN: 1. Pneumonia. Patient on vancomycin and Zosyn. Appears to be much improved. Once the patient no longer is severely neutropenic, can likely transition to oral antibiotics. 2. Pancytopenia, severe neutropenia. Patient receiving granulocyte colony-stimulating factor. Counts are improving slightly, although remains in the severe neutropenia range. Continue to monitor. Continue on neutropenic precautions. 3. Nausea and vomiting, resolved. 4. Stage IV lung cancer. Following with Dr. Jaffe. Patient is on chemotherapy. 5. Hypertension, reasonable control so far. Continue to monitor. 6. Diabetes. Glucose control reasonable. Continue to monitor. 7. Situational depression. Restarted on home Zoloft added some as-needed Ativan. 8. Chronic pain. Some worsening today. Will increase Percocet slightly and monitor. 9. Hypokalemia. Will replete and monitor.
[2018-08-17] MEDS: POTASSIUM CHLORIDE 20 MEQ/SWI 20 MEQ/100 ML IVPB IV SCH ×2 (18:00→21:42)
[2018-08-17 21:11] LABS: NEUT# 0.17 X1000 (1.4-6.5)
[2018-08-18] MEDS: HUMULIN R SUBQ SCH ×5 (01:05→21:41)
[2018-08-18] MEDS: PERCOCET-10 PO PRN ×4 (01:05→19:58)
[2018-08-18] MEDS: ZOSYN 3.375 GM in NS 50 ML IV SCH ×4 (01:05→19:57)
[2018-08-18] MEDS: VANCOMYCIN 1,500 MG in NS 250 ML IV SCH (03:03)
[2018-08-18] MEDS: DUONEB (A & A) INH SCH ×4 (03:50→21:50)
[2018-08-18] MEDS: ATIVAN PO PRN (05:18)
[2018-08-18 07:25] LABS: BASO# 0.13 X1000 (0.0-0.2); EOS# 0.08 X1000 (0.0-0.7); EOS% 1.2 % (0.0-10.0); HEMATOCRIT 27.2 % (37.0-47.0); HEMOGLOBIN 9.1 g/dL (12.0-16.0); IMM GRAN# 0.28 X1000 (0.0-0.04); IMM GRAN% 4.3 % (0.0-0.5); LYMPH# 2.25 X1000 (1.2-3.4); LYMPH% 34.8 % (20.5-51.1); MCH 30.7 PG (27-31); MCHC 33.5 g/dL (33-37); MCV 91.9 FL (81-99); MONO# 1.43 X1000 (0.11-0.59); MONO% 22.1 % (1.7-9.3); MPV 10.9 FL (7.4-10.4); NEUT% 35.6 % (42.2-75.2); RBC 2.96 XMIL (4.2-5.4); RDW 14.6 % (11.5-14.5); WBC 6.47 X1000 (4.8-10.8)
[2018-08-18 07:26] LABS: PLT 35 X1000 (130-400)
[2018-08-18 07:31] LABS: AGAP 10; BUN 7 mg/dL (8-22); CALCIUM 8.8 mg/dL (8.8-10.2); CHLORIDE 104 mmol/L (98-107); COSMO 279; CREATININE 0.8 mg/dL (0.5-0.9); ESTIMATED GFR > 60; GLUCOSE 127 mg/dL (70-104); POTASSIUM 3.6 mmol/L (3.5-5.1); SODIUM 140 mmol/L (136-145); TCO2 26 mmol/L (25-35)
[2018-08-18] MEDS: COREG PO SCH (10:27)
[2018-08-18] MEDS: MUCINEX PO SCH ×2 (10:27→19:58)
[2018-08-18] MEDS: MYCOLOG CREAM TOP SCH ×3 (10:28→17:11)
--- NOTE | 2018-08-18 11:54 | HEMO/ONC PROGRESS NOTE ---
DATE: 08/18/2018 SUBJECTIVE: The patient says she is slowly feeling better. Patient still has a nonproductive cough, but no other complaints at this time. OBJECTIVE: Vital Signs: Temperature 98.6 degrees, heart rate 109, respiratory rate 20, blood pressure is 119/71, saturating 95% on room air. General: Patient is awake, lying in bed, no acute distress noted. HEENT: Anicteric. Pupils PERRLA. Mucous and moist. Cardiovascular: S1, S2. Regular rhythm. Chest: Bilateral breath sounds clear to auscultation. Abdomen: Soft, nontender. Bowel sounds present all 4 quadrants. Neurologic: Alert and oriented x3. No focal deficits noted. LABORATORY DATA: White count 6.47, hemoglobin 9.1, hematocrit 27.2, platelets 35,000. Potassium 3.6, BUN 7, creatinine 0.8. ASSESSMENT AND PLAN: 1. Small-cell lung cancer: Continue to monitor as patient gets over her pneumonia. 2. Neutropenia: White blood cell count has greatly improved. Today, white blood cell count 6.47. ANC is up to 2300. Granix has been discontinued. We will continue to monitor. 3. Pneumonia: Continue as ordered as ordered by primary team. 4. Thrombocytopenia: Most likely caused by her chemotherapy. Continue to monitor very closely. Transfuse for any for platelets less than 20,000 or for any signs of bleeding. 5. Deep venous thrombosis prophylaxis. Continue to have patient to get out of bed as much as possible. 6. Supportive care. The patient will continue protein shakes as instructed. Patient will continue strengthening exercises as instructed as well. Dictated by WINDY Montes for Yefri Jaffe MD Patient seen and examined. Patient is doing well. Neutropenia has resolved. Discontinue white cell growth factor support. Thrombocytopenia due to chemotherapy. No bleeding. Okay for discharge from my standpoint. Yefri Jaffe M.D. cc: WINDY Montes MD [facility]
[2018-08-18] MEDS: TESSALON PO PRN ×2 (13:07→21:01)
[2018-08-18] MEDS: IMODIUM PO PRN (15:01)
--- NOTE | 2018-08-18 18:06 | PROGRESS NOTE ---
DATE: 08/18/2018 INTERVAL HISTORY: The patient has some occasional loose stools, but otherwise no new complaints. No acute events overnight. The patient complains of some mild sinus congestion and bilateral ear discomfort. REVIEW OF SYSTEMS: Twelve point symptoms negative except as per interval history. LABORATORY: WBC 6.4, hemoglobin of 9.1, hematocrit 27.2, platelets 35,000, absolute neutrophil count 2,300. Sodium 140, potassium 3.6, BUN 7. Creatinine 0.8. Glucose 127. OBJECTIVE: Vital signs: T-max 98.8 degrees, pulse 104, respirations 20, blood pressure 149/78, O2 saturations 96% on room air. patient might have some mild sinus congestion and bilateral. PHYSICAL EXAMINATION: General: No acute distress. Vitals: As above. HEENT: Normocephalic, atraumatic. Moist mucous membranes. No cervical adenopathy. Otoscopic evaluation showing no erythema, bulging, or purulence of either ear. External ears also within normal limits. Cardiovascular: Regular rate and rhythm. No murmurs, rubs, or gallops. Pulmonary: Largely clear to auscultation bilaterally, at this point. Abdomen: Soft, nontender, nondistended. Bowel sounds positive. Extremities: Peripheral pulses intact. No clubbing, cyanosis, or edema. Neurologic: Cranial nerves grossly intact. No focal deficits identified. Psychiatric: Largely normal mood and affect. Awake, alert, oriented x3. Skin: No new rashes or lesions identified. ASSESSMENT/PLAN: 1. Pneumonia. Patient on vancomycin and Zosyn. Much improved. If neutropenia continues to improve, can likely transition to oral antibiotics and discharge. Possibly as early as tomorrow. 2. Pancytopenia. Severe neutropenia. The patient has been receiving G-CSF. Counts are markedly improved today. No longer in the severe neutropenia range. Does have slightly worsened platelets, but no signs of active bleeding. No longer needs neutropenic precautions. 3. Nausea, vomiting, resolved. 4. Stage IV lung cancer, followed with Dr. Jaffe. Patient on chemotherapy. 5. Hypertension, reasonable control so far. Continue to monitor. 6. Glucose control reasonable. Continue to monitor. 7. Situational depression. Restarted on home Zoloft and added some as needed Ativan which seems to have improved her outlook somewhat. Chronic pain, much improved with slightly increased Percocet dose. 8. Hypokalemia improved status post repletion. Continue to monitor.
[2018-08-18] MEDS: VANCOMYCIN 1,800 MG in NS 250 ML IV SCH (21:01)
[2018-08-19] MEDS: ZOSYN 3.375 GM in NS 50 ML IV SCH ×3 (02:06→15:43)
[2018-08-19] MEDS: DUONEB (A & A) INH SCH ×3 (03:55→16:04)
[2018-08-19] MEDS: MUCINEX PO SCH ×2 (06:30→08:43)
[2018-08-19] MEDS: HUMULIN R SUBQ SCH (06:30)
[2018-08-19] MEDS: COREG PO SCH (06:31)
[2018-08-19] MEDS: ZOFRAN IV PRN ×2 (08:43→16:13)
[2018-08-19] MEDS: TESSALON PO PRN ×2 (10:09→15:43)
[2018-08-19] MEDS: IMODIUM PO PRN ×2 (10:09→15:43)
[2018-08-19 16:04] LABS: BASO# 0.41 X1000 (0.0-0.2); BASO% 3.4 % (0.0-0.8); EOS# 0.07 X1000 (0.0-0.7); EOS% 0.6 % (0.0-10.0); HEMATOCRIT 28.4 % (37.0-47.0); HEMOGLOBIN 9.7 g/dL (12.0-16.0); IMM GRAN# 1.14 X1000 (0.0-0.04); IMM GRAN% 9.6 % (0.0-0.5); LYMPH# 2.71 X1000 (1.2-3.4); LYMPH% 22.8 % (20.5-51.1); MCH 31.1 PG (27-31); MCHC 34.2 g/dL (33-37); MONO# 2.83 X1000 (0.11-0.59); MONO% 23.8 % (1.7-9.3); MPV 9.5 FL (7.4-10.4); NEUT# 4.73 X1000 (1.4-6.5); NEUT% 39.8 % (42.2-75.2); PLT 38 X1000 (130-400); RBC 3.12 XMIL (4.2-5.4); RDW 14.5 % (11.5-14.5); WBC 11.89 X1000 (4.8-10.8)
[2018-08-19 16:11] LABS: EOS 1 % (1-10); LYMPHS 33 % (21-51); MONO 7 % (1-9); SEGS 53 % (42-75)
[2018-08-19] MEDS: VANCOMYCIN 1,800 MG in NS 250 ML IV SCH (16:13)
[2018-08-19 16:39] VITALS: BP 121/89
--- NOTE | 2018-08-19 21:08 | DISCHARGE SUMMARY ---
ADMISSION DATE: 08/13/2018 DISCHARGE DATE: 08/19/2018 CONSULTS: Hematology-Oncology, Dr. Jaffe. IMAGING: CT chest with bronchopneumonia, primarily in left upper lobe and also some in the right lower lobe, improved. Perihilar mediastinal masses, improved adenopathy, healing rib fracture. Fatty liver. Echocardiogram: Normal EF. No significant pericardial effusion. Mild mitral regurgitation. DISCHARGE DIAGNOSES: 1. Pneumonia. 2. Severe neutropenia/pancytopenia. 3. Nausea and vomiting. 4. Stage IV lung cancer. 5. Hypertension. 6. Diabetes. 7. Situational depression. 8. Hypokalemia. HOSPITAL COURSE: The patient is a 53-year-old female with a history of advanced stage lung cancer with metastases to liver and multiple lymph nodes, currently on chemotherapy with Dr. Jaffe. Began having malaise, fever and cough at home as well as some pleuritic chest pain, nausea and vomiting. She came to the ER for further evaluation. She was found to have bilateral pneumonia, fever, and tachycardia. She was noted to be significantly neutropenic. She became severely neutropenic with a low of 120. Subsequently, she was started on G-CSF with improvement in her white count and neutrophil count. On discharge, white count was 11.9 and absolute neutrophil count was 4730. She also had anemia, which was largely stable during the hospitalization, and which actually improved from a hemoglobin of 7.5 to a hemoglobin of 9.7 on discharge. She also had thrombocytopenia, which trended down to 35 and was improved slightly up to 38 at discharge. Patient never had any signs or symptoms of active bleeding. The patient was started on antibiotics on admission with vancomycin and Zosyn. She improved rapidly on this, and her respiratory symptoms were completely resolved prior to discharge. She was continued on a course of Levaquin at discharge to finish treatment. The patient's nausea and vomiting improved shortly after admission with treatment of her underlying pneumonia. Patient did have some diarrhea at 1 point, but C difficile was negative, and this resolved spontaneously. Her hypertension and diabetes were largely stable. DISCHARGE VITAL SIGNS: Temperature 98.5 degrees, pulse 96, respirations 20, blood pressure 122/73, O2 saturation 97% on room air. DISCHARGE DIET: Regular. DISCHARGE MEDICATIONS: 1. Reglan 10 mg p.o. every 6 hours as needed. 2. Oxy Contin 10 mg p.o. every 12 hours as previously prescribed. 3. Coreg 25 mg p.o. b.i.d. 4. Saxagliptin/metformin 1 tab p.o. b.i.d. 5. Phenergan 25 mg p.o. every 6 hours p.r.n. 6. Zofran every 6 hours p.r.n. 7. Zoloft 100 mg p.o. daily 8. Levaquin 750 mg p.o. daily for 4 more days. FOLLOW-UP AND PLAN: 1. Patient's pneumonia is essentially resolved at this point. Continuing Levaquin for 4 more days to finish treatment. 2. Patient to follow up with Oncology, Dr. Jaffe for recheck of labs and continued treatment of her underlying lung cancer. 3. Patient to follow up with PCP. Greater than 30 minutes spent arranging discharge and counseling patient.
--- NOTE | 2018-08-22 18:18 | PROVIDER DOCUMENTATION ---
This chart was entered by Treasure Fischer Scribe, acting as scribe for Naveed Jang MD. HPI-General Adult - General Chief Complaint: Fever Stated Complaint: FEVER 100.6, VOMITING (CANCER PT.) Time Seen by Provider: 08/13/18 18:45 Source: patient Allergies/Adverse Reactions: Patient Allergies Allergy/AdvReac Type Severity Reaction Status Date / Time latex Allergy RASH Verified 08/13/18 18:59 Home Medications: Home Medication List Medication Instructions Recorded Confirmed Last Taken Type Saxagliptin HCl/Metformin HCl 1,000 mg PO BID 07/14/13 08/13/18 07/13/18 10:00 History [Kombiglyze Xr 5-1,000 mg Tab] Carvedilol [Coreg] 25 mg PO BID PRN 07/13/18 08/13/18 07/13/18 22:00 History Promethazine [Phenergan] 25 mg PO Q6H PRN PRN 07/13/18 08/13/18 07/13/18 22:00 History Metoclopramide [Reglan] 10 mg PO Q6HR PRN 08/13/18 08/13/18 Unknown History Ondansetron HCl [Zofran] 4 mg PO Q6H PRN PRN 08/13/18 08/13/18 Unknown History Oxycodone E.r. [Oxycontin] 10 mg PO Q12HR 08/13/18 08/13/18 Unknown History Sertraline HCl [Zoloft] 100 mg PO DAILY 08/16/18 Unknown History Levofloxacin [Levaquin] 750 mg PO DAILY #4 tab 08/19/18 Unknown Rx - History of Present Illness -Gen Adult Nature of Presenting Problems: Pt is 53/F presenting to ED w/ Bronchitis that was dx on Tuesday. She was given Levaquin and Robaxin. She sts that she is not getting better and now has a fever and n/v, she sts that she cannot keep anything down at all. Pt is current lung cancer pt and had chemo on [id number]. Pt sts that they have also found mets to liver and lymph nodes. Location of Pain/Injury: reports: generalized Quality of Pain: reports: aching Severity: reports: moderate Onset/Duration: reports: 1 week ago Timing: reports: still present Context/Activities at Onset: reports: none Modifying Factors: improves with: nothing Associated Symptoms: reports: nausea, vomiting. denies: diarrhea, shortness of breath Similar Symptoms Previously?: No Recently seen or treated by another doctor?: No Review of Systems - Adult - REVIEW OF SYSTEMS - ADULT Constitutional: reports: no symptoms reported, fever. denies: chills Eyes: reports: no symptoms reported Ears, Nose, Mouth & Throat: reports: no symptoms reported. denies: ear pain, throat pain Cardiovascular: reports: no symptoms reported. denies: chest pain Respiratory: reports: no symptoms reported. denies: cough, shortness of breath, wheezing Gastrointestinal: reports: nausea, vomiting. denies: abdominal pain, diarrhea Genitourinary: reports: no symptoms reported Musculoskeletal: reports: no symptoms reported Integumentary: reports: no symptoms reported Neurological: reports: no symptoms reported. denies: dizziness/vertigo, headache/migraines Psychiatric: reports: no symptoms reported Endocrine: reports: no symptoms reported Hematologic/Lymphatic: reports: no symptoms reported Allergic/Immunologic: reports: no symptoms reported All Other Systems: Reviewed and Negative Past History - Adult - PAST MEDICAL HISTORY-ADULT Review of Records: reports: Old Records Reviewed, Nursing Assessment Review, Medications Reviewed, Social history reviewed & non-contributory. Major Childhood Illnesses: reports: denies history Cardiovascular: reports: HTN, hyperlipidemia Respiratory: reports: COPD Gastrointestinal: reports: denies history Obstetrical/Gynecological: reports: denies history Genitourinary: reports: denies history Musculoskeletal: reports: denies history Neurological: reports: denies history Psychiatric: reports: anxiety Endocrine/Immune: reports: denies history Other Conditions: reports: denies history - PRIOR SURGERIES/PROCEDURES Surgical/Procedure History: reports: cholecystectomy, tonsillectomy, other (tubal ligation) - PRIOR HOSPITALIZATIONS Prior Hospitalizations: reports: for other non-related - IMMUNIZATION STATUS Childhood Immunizations: See Nurse Assessment Flu Vaccine: See Nurse Assessment - FAMILY HISTORY Family History: reviewed, not pertinent - SOCIAL HISTORY Smoking: quit greater than 1 year Substance Use: none/never Alcohol Use Frequency: never Living Situation: family Physical Exam-General - PHYSICAL EXAM-ADULT Initial Vital Signs Reviewed: Yes - CONSTITUTIONAL General Appearance: alert, mild distress (tearful), obese, other - EYES Eyes: PERRL/EOMI, pink conjunctivae - HEAD, EARS, NOSE, MOUTH & THROAT HENMT: normocephalic/atraumatic, moist mucous membranes, normal ENT inspection, TMs normal - NECK Neck: non-tender, full range of motion, supple, normal inspection - RESPIRATORY Respiratory: chest non-tender, normal breath sounds, crackles, rhonchi, wheezing - CARDIOVASCULAR Cardiovascular: no edema, tachycardia (135) - GASTROINTESTINAL (ABDOMEN) Abdominal Exam: normal bowel sounds, non tender, soft - LYMPHATIC Lymphatic: no adenopathy - MUSCULOSKELETAL Back Exam: normal inspection, no CVA tenderness, no vertebral tenderness Extremity: normal range of motion, non-tender, normal gait, normal inspection - SKIN Integumentary: normal color, warm/dry - NEUROLOGIC Neurologic: grossly normal - PSYCHIATRIC Psych/Mental Status: normal mood/affect, normal thought content, normal thought process, oriented x 3 Progress - PLAN OF CARE/RESULTS Progress/Plan/Lab Results: Vital Signs - 8 hr 08/13/18 18:18 Temperature 99.8 F H Pulse Rate 135 H Respiratory Rate 24 Blood Pressure 114/76 O2 Sat by Pulse Oximetry 95 Result Diagrams: 08/19/18 15:34 08/18/18 06:45 Departure - Departure Date of Disposition Decision: 08/14/18 Time of Disposition Decision: 04:18 DIAGNOSIS: Pneumonia Disposition: ADMITTED INPATIENT 09 Certified Medical Emergency: Emergent Condition: Stable - Critical Care Note This patient required my direct & personal management of CC.: No Attestation - Physician/ LIANA Attestation Patient care was provided by Advanced Practice Provider:: No The physician spent face to face time with patient:: Yes Advanced Practice Provider documentation review:: Supervising physician onsite and consulted in the evaluation and care of this patient. The physician did have a face to face encounter with the patient. This chart was documented by the indicated scribe, (Treasure Fischer, Gregibmicky) and accurately reflects the services I performed and decisions made by me, Naveed Jang MD, as attested by the provider's signature.
== END 2018-08-19 18:45 | disposition home or self-care (01) | DRG 193 ==
LOC: ED 18:16 → 4N 22:27 → SUATTDRO 22:27
PROVIDERS: ATTEND Internal Medicine
CPT/HCPCS: 36430; 71260; 80048; 80053; 80202; 81001; 82550; 82948; 83605; 83735; 84484; 85025; 85610; 85730; 86850; 86900; 86901; 86920; 87040; 87070; 87088; 87205; 87275; 87276; 87324; 87804; 89220; 93005; 93010; 93306; 94640; 94761; 94799; 96365; 96367; 96375; 96376; 99285; A9270; J1446; J1447; J2270; J2405; J2543; J2930; J3370; J3480; J7030; J7040; J7050; P9016; Q9967; XXXXX

== ENCOUNTER 2019-01-25 12:26 | Inpatient (IN) ==
[2019-01-25] MEDS ORDERED: ZOFRAN IV PRN (13:16)
--- NOTE | 2019-01-25 13:42 | Diag Imaging Result Doc PS360 ---
EXAM: CHEST-PORTABLE 01/25/2019 HISTORY: new admit TECHNIQUE: AP portable at 1331 COMMENT: There is cardiomegaly. The atelectatic changes seen in the upper lung zones on 07/14/2018 have resolved. There are no new pulmonary parenchymal findings. IMPRESSION: Cardiomegaly. Electronically signed by Hector Mercado 01/25/2019 1:39 PM
[2019-01-25 14:06] LABS: BASO# 0.01 X1000 (0.0-0.2); BASO% 0.2 % (0.0-0.8); HEMATOCRIT 30.2 % (37.0-47.0); HEMOGLOBIN 10.5 g/dL (12.0-16.0); IMM GRAN# 0.05 X1000 (0.0-0.04); IMM GRAN% 1.1 % (0.0-0.5); LYMPH# 0.69 X1000 (1.2-3.4); LYMPH% 14.7 % (20.5-51.1); MCHC 34.8 g/dL (33-37); MCV 100.7 FL (81-99); MONO# 0.11 X1000 (0.11-0.59); MONO% 2.3 % (1.7-9.3); MPV 8.6 FL (7.4-10.4); NEUT# 3.83 X1000 (1.4-6.5); NEUT% 81.7 % (42.2-75.2); PLT 117 X1000 (130-400); RDW 15.1 % (11.5-14.5); WBC 4.69 X1000 (4.8-10.8)
--- NOTE | 2019-01-25 14:16 | Diag Imaging Result Doc PS360 ---
EXAM: KUB ABDOMEN 01/25/2019 HISTORY: Nausea/diarrhea TECHNIQUE: KUB COMMENT: There are surgical clips throughout the abdomen. The small bowel is not distended. There is some gas and stool in the colon without evidence of dilatation. The stomach is not distended and there is no evidence of organomegaly or mass. IMPRESSION: No evidence of obstruction. Otherwise nonspecific abdomen. Electronically signed by Hector Mercado 01/25/2019 2:14 PM
[2019-01-25 14:29] LABS: ALB/GLOB RATIO 1.1; ALBUMIN 4.2 g/dL (3.5-5.0); CALCIUM 9.3 mg/dL (8.8-10.2); CREATININE 1.1 mg/dL (0.5-0.9); MAGNESIUM 2.1 mg/dL (1.5-2.7); POTASSIUM 3.7 mmol/L (3.5-5.1); TOTAL BILIRUBIN 0.73 mg/dL (0.20-1.00)
[2019-01-25] MEDS: NS 1,000 ML IV SCH ×2 (15:41→21:35)
[2019-01-25 16:41] LABS: URINE SOURCE VOIDED
[2019-01-25 16:45] LABS: BILIRUBIN URINE NEGATIVE (NEGATIVE); BLOOD URINE NEGATIVE (NEGATIVE); COLOR YELLOW; GLUCOSE URINE NEGATIVE (NEGATIVE); KETONE URINE 10 mg/dL (NEGATIVE); LEUKOCYTES URINE NEGATIVE (NEGATIVE); NITRITE URINE NEGATIVE (NEGATIVE); PROTEIN URINE NEGATIVE (NEGATIVE); SP GRAVITY URINE 1.009; TURBIDITY URINE CLEAR (CLEAR); UR EPITHELIAL CELLS <10 /HPF (<10); URINE BACTERIA NEGATIVE /HPF; URINE RBC <10 /HPF (<10); URINE WBC <10 /HPF (<10); UROBILINOGEN URINE NORMAL (NORMAL)
[2019-01-25] MEDS: HUMALOG SUBQ SCH ×2 (17:06→21:02)
[2019-01-25] MEDS ORDERED: PROTONIX IV SCH (17:30)
[2019-01-25] MEDS ORDERED: LEVAQUIN 500 MG/D5W 500 MG/100 ML IVPB IV SCH (17:30)
--- NOTE | 2019-01-25 17:32 | HEMO/ONC CONSULTATION ---
DATE: 01/25/2019 REASON FOR CONSULTATION: She is a known patient of ours for the treatment of extensive stage small-cell lung cancer. HISTORY OF PRESENT ILLNESS: Ms. Barclay is a known patient of ours for the treatment of extensive stage small-cell lung cancer. The patient completed chemotherapy with carboplatin, etoposide, and Tecentriq earlier this year and stopped on 09/25/2018. She began Tecentriq only therapy on 09/25/2018. The patient has had 5 cycles of Tecentriq when she developed significant watery diarrhea and dehydration. She was sent to Dr. Lam's office last week for evaluation of the diarrhea to rule out infectious versus immune mediated diarrhea. She has come into the office Tuesday, Tuesday and Tuesday of this week for IV fluids and nausea medicine. Today the patient continues to complain of significant nausea, dehydration, and diarrhea. She cannot keep anything down. She states the dryness of her mouth and throat are keeping her from being able to swallow anything. She is attempting to drink water and Gatorade but she continues to not feel any better. Denies any fever or shortness of breath. The patient's last dose of Tecentriq was on 12/18/2018. PAST MEDICAL HISTORY: Diabetes, hypertension, and depression. PAST SURGICAL HISTORY: Port placement, neck surgery, cholecystectomy, and tummy tuck. ALLERGIES: No known drug allergies. Allergic to latex. HOME MEDICATIONS: Zyrtec, Reglan, Zofran, OxyContin, Phenergan, and Zoloft. SOCIAL HISTORY: She is a former smoker. She denies alcohol or illicit drug use. REVIEW OF SYSTEMS: Pertinent positives are noted in the HPI. She has lost 9 pounds in the last 4 weeks. PHYSICAL EXAMINATION: Vital Signs: Temperature 96.7 degrees, pulse 82, blood pressure 137/95. General: This is a chronically ill-appearing female that does not appear comfortable. She is tearful and appears unwell. HEENT: Eyes anicteric. Pupils, PERRLA. Oral mucosa is dry. Cardiovascular: Normal S1, S2. Heart rate and rhythm regular. Respiratory: Respiratory effort is normal. Gastrointestinal: Abdomen is soft. Tenderness noted on palpation. Skin: No petechiae, ecchymosis, or rashes noted. Positive tenting. Very dry. Neurological: Awake and oriented x3. No focal motor deficits. LABORATORY: WBC 4.69, hemoglobin 10.5, hematocrit 30.2, platelet count 117,000, ANC 3.83. Sodium 132, creatinine 1.1. RADIOLOGY: Chest x-ray shows cardiomegaly. Abdominal x-ray shows no evidence of obstruction, otherwise nonspecific abdomen. ASSESSMENT: 1. Dehydration. 2. Nausea, vomiting, and diarrhea. EGD showing diffuse ulcers. 3. Extensive stage small-cell lung cancer. PLAN: GI evaluation with Dr. Lam confirmed by EGD, colonoscopy. We will continue to hold Tecentriq. Continue to aggressively hydrate the patient. Administer antinausea medicine around the clock. Per Dr. Lam, the patient should be on omeprazole, Culturelle, Levaquin, Flagyl,and prednisone taper. Please consult Dr. Lam for further management. We will continue to follow closely. Dictated by WINDY Seth for Yefri Jaffe MD cc: Yefri Jaffe MD [facility] [place] [facility]
--- NOTE | 2019-01-25 18:44 | HISTORY AND PHYSICAL ---
CHIEF COMPLAINT: Direct admit from Dr. Jaffe's office for nausea and diarrhea. HISTORY OF PRESENT ILLNESS: Ms. Barclay is a 53-year-old female who carries a past medical history of small cell lung cancer who is followed by Dr. Jaffe. She reports after chemo and radiation she has been receiving aftercare medications and since that time she has felt severely dehydrated, dry mouth, dry eyes, and chronic diarrhea, nausea and vomiting, decrease in appetite, unable to keep any food down. She did follow up with Dr. Lam. They did an EGD and colonoscopy. She states they removed a polyp and found some gastric ulcers and has been taking in her Pedialyte as Dr. Malone instructed. However this week, she had an escalation in her episodes of diarrhea. Prior to her EGD and colonoscopy she would just have clear diarrhea 6 to 7 times per day and since then it has been about 4 times a day and she describes it as stringy, continued extremely dry mouth and nothing helps it. She has been to Dr. Jaffe's office she reports every day for IV fluids. She went to the ED at [facility] last night secondary to left shoulder pain. She was told to follow up with Dr. Espinoza for a shot in the shoulder. We are currently awaiting diagnostics and laboratory data and we will admit her to a private room. Continue with IV hydration and antiemetics. PAST MEDICAL HISTORY: 1. Small cell lung cancer status post treatment and status post aftercare medications. 2. Nausea, vomiting, and diarrhea that is intractable. She has seen Dr. Lam for this. She had a polyp removed and was diagnosed with gastric ulcers and was told to sip on Pedialyte to continue getting her electrolytes. However, she states her mouth is so dry she is not really able to the eat any solid foods, and her p.o. intake continues to decrease. She has been on antibiotics with Levaquin for some time now. She states that she was placed on it by her primary care doctor, the ED physician, as well as Dr. Lam, so we will do infectious stool study, rule out. We will check a KUB. Past medical history of small cell lung cancer. 3. Hypertension. 4. Anxiety. 5. Diabetes mellitus type 2. PAST SURGICAL HISTORY: 1. Cervical fusion of the neck. 2. Tummy tuck in 2015. 3. Cholecystectomy. 4. Tubal ligation in 1990. 5. Lung biopsy performed in June. SOCIAL HISTORY: She is a former smoker. She quit smoking 3 years ago. No alcohol or illicit drug use. She does have, I believe, an 8-year-old who is autistic. FAMILY HISTORY: Mother positive for diabetes. Father secondary to mesothelioma lung cancer thought to be secondary to environmental exposure where he worked for 24 years and a sister who is currently being treated for breast cancer. ALLERGIES: To latex causes skin irritation. MEDICATIONS: Home medications are being compiled. LABORATORY AND DIAGNOSTIC DATA: Have been ordered. PHYSICAL EXAMINATION: VITAL SIGNS: Have not been taken. GENERAL: Ms. Barclay is a ill-appearing 53-year-old female who is sitting up in the bed sipping on water. HEENT: Atraumatic, normocephalic. PERRL. NECK: Supple trachea midline. CARDIOVASCULAR: S1, S2 appreciated. No murmurs, gallops, rubs noted. RESPIRATORY: Lung sounds clear bilaterally, decreased in the bases. GI: Is soft. It is tender to her left upper quadrant. Positive bowel sounds. EXTREMITIES: Negative for edema. Bilateral pedal pulses are palpable. NEUROLOGIC: No focal deficits are noted. She is awake and oriented. Answers all questions appropriately. Did not appreciate any focal deficits. ASSESSMENT AND PLAN: 1. Intractable nausea, vomiting, and diarrhea. We will place her on medical telemetry floor. We will start IV hydration and antiemetics. The patient has been on antibiotics for quite some time. We will do infectious workup with stool studies. 2. Metastatic small cell lung cancer with metastasis to the liver. The patient has treated her chemo and radiation and has been receiving aftercare meds. The patient was directly admitted from Dr. Jaffe's office. He is aware. 3. Dry mouth, dry eyes. 4. Diabetes mellitus. We will place her on sliding scale with pattern blood sugars. 5. Anxiety. 6. Hypertension. 7. Left shoulder pain. This patient went to the ED for last night. She was told to follow up with Dr. Espinoza for a shot. 8. Further recommendation to follow physician evaluation, laboratory and diagnostic data. Dictated by WINDY Ascencio for Kemal Leslie MD cc: MD Yefri Cortes MD Don Beach MD
--- NOTE | 2019-01-25 21:26 | HISTORY AND PHYSICAL ---
ADDENDUM: The patient was seen and examined by me [id number]. All available laboratory and abdominal x-ray with no evidence of obstruction, and chest x-ray with cardiomegaly were reviewed. Vital signs also were checked. Patient basically is a direct admission by Hematology/Oncology Department, Dr. Jaffe. As per the patient, after getting treatment with radiotherapy a few weeks ago, she started having nausea, vomiting, and diarrhea, which basically has been almost every day, to the point that she is now dehydrated and extremely weak. She has a past medical history of small cell lung cancer. Also, she has a history of neutropenia, thrombocytopenia, pneumonia, diabetes, hypertension, and now she presented with acute kidney injury due to dehydration. Mucous membranes are dry. She is completely alert. She is completely oriented x3 with no focal deficits. Laboratory data showed WBC 4.6, hemoglobin 10.5, hematocrit 30.2, and platelet count of 117,000. Her creatinine was 1.1, but back in August her creatinine was completely normal between 0.6 and 0.8. Glucose level around 142, and slightly elevated AST. She has been treated for sinusitis with levofloxacin. As per the patient, she needs 2 more doses, which she will receive. I will give her intravenous fluids. I will put her on Zofran. I will continue with some of her home medications, including Zoloft, OxyContin, and Zyrtec, also morphine intravenously as needed, and also I will do gastrointestinal prophylaxis with pantoprazole intravenously. cc: Kemal Leslie MD
[2019-01-25] MEDS: OXYCONTIN PO SCH (21:32)
[2019-01-26] MEDS: NS 1,000 ML IV SCH ×3 (03:29→20:17)
[2019-01-26 05:30] LABS: BASO# 0.01 X1000 (0.0-0.2); BASO% 0.3 % (0.0-0.8); EOS# 0.01 X1000 (0.0-0.7); EOS% 0.3 % (0.0-10.0); HEMATOCRIT 29.2 % (37.0-47.0); HEMOGLOBIN 10.3 g/dL (12.0-16.0); IMM GRAN# 0.05 X1000 (0.0-0.04); IMM GRAN% 1.3 % (0.0-0.5); LYMPH# 1.27 X1000 (1.2-3.4); LYMPH% 33.3 % (20.5-51.1); MCH 35.6 PG (27-31); MCHC 35.3 g/dL (33-37); MONO# 0.24 X1000 (0.11-0.59); MONO% 6.3 % (1.7-9.3); MPV 8.3 FL (7.4-10.4); NEUT# 2.23 X1000 (1.4-6.5); NEUT% 58.5 % (42.2-75.2); PLT 126 X1000 (130-400); RBC 2.89 XMIL (4.2-5.4); WBC 3.81 X1000 (4.8-10.8)
[2019-01-26 05:49] LABS: AGAP 16; ALB/GLOB RATIO 1.1; ALBUMIN 3.9 g/dL (3.5-5.0); ALKALINE PHOSPHATASE 75 U/L (32-104); BUN 7 mg/dL (8-22); CALCIUM 9.2 mg/dL (8.8-10.2); CHLORIDE 101 mmol/L (98-107); COSMO 276; CREATININE 0.9 mg/dL (0.5-0.9); ESTIMATED GFR > 60; GLUCOSE 78 mg/dL (70-104); GOT 42 U/L (10-30); GPT 24 U/L (10-36); MAGNESIUM 2.1 mg/dL (1.5-2.7); POTASSIUM 3.9 mmol/L (3.5-5.1); SODIUM 140 mmol/L (136-145); TCO2 23 mmol/L (25-35); TOTAL BILIRUBIN 0.59 mg/dL (0.20-1.00); TOTAL PROTEIN 7.6 g/dL (6.3-8.3)
--- NOTE | 2019-01-26 07:19 | Diag Imaging Result Doc PS360 ---
EXAM: CHEST-PORTABLE INDICATION: follow up TECHNIQUE: One view COMPARISON: 01/25/2019 FINDINGS: The left chest port is in stable position. Minimal atelectasis is approximately stable. No new consolidation is identified. Cardiac silhouette is stable. IMPRESSION: Stable chest. Electronically signed by Hu Carmona 01/26/2019 7:17 AM
[2019-01-26] MEDS: OXYCONTIN PO SCH ×2 (09:17→20:13)
[2019-01-26] MEDS: ZOLOFT PO SCH (09:18)
[2019-01-26] MEDS: PROTONIX IV SCH (09:18)
[2019-01-26] MEDS: ZYRTEC PO SCH (09:18)
[2019-01-26] MEDS: HUMALOG SUBQ SCH ×3 (11:03→20:17)
[2019-01-26] MEDS ORDERED: PHENERGAN IV PRN (11:14)
[2019-01-26] MEDS ORDERED: SODIUM CHLORIDE 0.9% INJ PRN (11:14)
[2019-01-26] MEDS: ZOFRAN PO SCH ×2 (12:19→16:20)
--- NOTE | 2019-01-26 12:23 | PROGRESS NOTE ---
DATE: 01/26/2019 SUBJECTIVE: This patient seems to be a little better today compared with yesterday. She has started tolerating a little bit of food, liquid diet, for now we will continue with same management. Kidney function seems to be better and she still needs some fluids, she came in severely dehydrated. OBJECTIVE: Vital Signs: Temperature 97.5 degrees, pulse 64, respiratory rate 18, blood pressure 138/92, oxygen saturation 100% on room air. HEENT: Head normocephalic. No trauma. PERRLA. Neck: Supple. No JVD. No masses. Central trachea. She is complaining of left shoulder pain. Abdomen: Soft, protuberant, generalized tenderness to palpation mostly at the level of the epigastric and periumbilical area. Positive bowel sounds. Extremities: No edema, no clubbing, no cyanosis. Neurological: The patient is alert, she is oriented x3. No focal deficits. LABORATORY DATA: WBC 3.8, hemoglobin 10.3, hematocrit 29.2, platelets 128,000. Sodium 140, potassium 3.9, chloride 101, bicarbonate 23, BUN 7, creatinine 0.9, glucose 78, calcium 9.2. ASSESSMENT AND PLAN: 1. Intractable nausea, vomiting and diarrhea. Diarrhea seems to be better. She is still having nausea. She has started to tolerate a little bit of fluids. We will continue with same management for now. 2. Metastatic small cell lung cancer with metastasis to the liver. I will continue with the recommendations of Hematology/Oncology Department. 3. Dry mouth and dry eyes. Probably this is medication related or radiation related. We will continue with IV fluids and home medications. 4. Type 2 diabetes. Continue sliding scale insulin and pattern blood sugar. 5. Anxiety, aware. Continue with home medication. 6. Hypertension, stable. 7. Left shoulder pain. The patient went to the emergency department a few days ago. She was told to follow up with Dr. Espinoza for a shot. 8. Further recommendations pending hospital course. She seems to be a little bit better but she is still complaining of nausea and abdominal pain. cc: Kemal Leslie MD
[2019-01-26] MEDS: PREDNISONE PO SCH (13:51)
--- NOTE | 2019-01-26 14:42 | CONSULTATION ---
DATE OF CONSULTATION: 01/26/2019 REASON FOR CONSULTATION: Nausea, vomiting, diarrhea, and dehydration. HISTORY OF PRESENT ILLNESS: Ms. Barclay is 53 year old female admitted to the hospital for nausea, vomiting, diarrhea, and dehydration. The patient has metastatic stage small cell cancer and has undergone chemo and brain radiation. She state "I have been feeling this way since after she completed her new chemo medicine" but does not remember the name of the medicine. She is also complaining of dryness in the mouth and the throat. Three weeks back she had an EGD and [facility] Lam to rule out any infection related to immune mediated diarrhea. Findings were gastritis, polyps, and ulcers. She had one bowel movement today which was formed and denies noticing any blood. She says that when she sees the food or swallows something she feels nauseated. She denies any fever, chills or shortness of breath. PAST MEDICAL HISTORY: Extensive stage small cell cancer, hypertension, anxiety, type 2 diabetes, left shoulder pain, obesity. SURGERY: Neck surgery, cholecystectomy, tummy tuck, tubaligation, tonsillectomy, and port placement on the left chest wall. SOCIAL HISTORY: She is a former smoker, but denies having alcohol or illegal drugs. She is and has a seven years old son, autistic and lives with her. FAMILY HISTORY: Father had lung cancer. Sister has breast cancer. Mother has diabetes. DRUG ALLERGIES: She denies any known drug allergies but has latex allergy which causes her to have rash. HOME MEDICATIONS: Reglan, Zofran, Phenergan, Zyrtec, Zoloft, and OxyContin. REVIEW OF SYSTEMS: The patient complains of left shoulder pain, nausea, vomiting, diarrhea, and dehydration and loss of hair, weight loss of almost 20 pounds since . Denies blood in the stools. Denies any fever, chills, or flu like symptoms; 12- point ROS otherwise negative to date. PHYSICAL EXAMINATION: Vital signs: Temperature is 97.5, pulse 67, respirations 18, blood pressure is 132/82, oxygen saturation is 100% on room air, body weight 210 pounds, BMI 32.0. General: alert and oriented x3 sitting in the bed, answers questions appropriately. She is guarding her left shoulder and has a lidocaine patch on it. Has alopecia and is obese. HEENT: Pale conjunctivae,no icterus and PEERL. Cardiovascular: regular rate and rhythm. No rubs, murmur and gallops. Chest: Port on the right chest wall. Lungs: CTAB no wheezing. Abdomen: obese, abdominal straie, Soft. Tender on palpation to the left lower quadrant. Active bowel sounds heard in all four quadrants. Extremities: No clubbing, cyanosis, or edema noted. 2+ pedal pulses present bilaterally. Neurologic: Nonfocal. Cranial nerves II-XII grossly intact. LABORATORY DATA: WBC is 3.81, RBC is 2.89, hemoglobin 10.3, hematocrit 29.2, platelet count is 126,000. Chemistry: Sodium 140 from 132, potassium 3.9, chloride 101, carbon dioxide 23, anion gap is 16, BUN is 7, creatinine 9, glucose is 78, calcium 9.2. Urinalysis showed trace of ketones. IMAGING: Chest x-ray on admission showed that she had cardiomegaly. Abdominal x-ray showed no evidence of obstruction. Otherwise, nonspecific abdomen. EGD/Colonoscopy on 01/12 showed mild erosive gastritis and moderate left-sided colitis. Biopsies negative for H pylori. Acute colitis seen by biopsies; superficial biopsies inadequate to rule in or out immune-mediated colitis. ASSESSMENT: 1. Dehydration, 2. Nausea and vomiting, 3. Diarrhea. 4. Extensive stage small cell cancer. 5. Hypertension aware 6. Anxiety aware 7. Type 2 diabetes aware 8. Left shoulder pain PLAN OF CARE: Her stools studies that were done 3 weeks back showed negative C- diff antigen and negative C-diff toxin, culture. Discontinue antibiotic Levaquin and start her on prednisone 40 mg daily. Continue antiemetic Zofran 4 mg p.o. before meals and Phenergan 12.5 mg IV q six hours as needed. For dehydration, continue IV fluids NS @ 100 mls as prescribed by her PCP. Continue GI prophylaxis as prescribed. We will monitor her labs. Her diet is clear liquid advance as tolerated. We will plan to do a sigmoidoscopy on Tuesday01/29/2019. This plan of care was discussed with Dr. Yu and the patient. Patient acknowledged understanding of the plan of care. Thank you for your consult. Please give us a call for any further questions or concerns. Please forward this note to Dr. Wayne Yu. Dictated by WINDY Morin for Wayne Yu MD cc: Wayne Yu MD I seen and examined the patient. I have reviewed the labs, imaging, and other documentation. I discussed the case with Rebecca Castro TRANSMISSION INSPECTOR and agree with the findings and plan as documented. If brief, Ms. Barclay is a 53 year old woman with metastatic SCLC recently started on Keytruda 3 months ago who presents with approximately 6-8 weeks of NBNB emesis, watery diarrhea, LLQ abdominal pain. She describes developing symptoms shortly after starting immunotherapy for her lung cancer. She underwent recent EGD/colonoscopy with Dr. Lam on 01/12 that showed left-sided colitis. She has been treated with course of antibiotics, prednisone taper, and probiotics. Her diarrhea has been improving and more formed from 4-6 per day twice yesterday. However, she has had trouble tolerating PO intake given N/V. Stool studies including cdiff, culture, O&P were negative. Labs notable for hyponatremia on admission. No cross-sectional imaging. Biopsies from colonoscopy showed acute colitis without chronicity; however, cannot rule in immune-mediated colitis. No CMV or HSV. Recommend stopping antibiotics given unlikely bacterial infection. Start prednisone 40mg PO daily. Will schedule zofran with meals and given phenergan prn for breakthrough nausea. IVFs. Clear liquid diet. Will plan for diagnostic sigmoidoscopy to take multiple biopsies to reevaluate for immune- mediate colitis to decide whether or not she can continue Keytruda. Discussed plan with Dr. Jaffe. # Colitis # N/V # Hypovolemia # Hyponatremia # Gastritis # SCLC Thank you for this consult. Will follow with you. Please call with questions MTDD
--- NOTE | 2019-01-26 19:20 | HEMO/ONC PROGRESS NOTE ---
DATE: 01/26/2019 SUBJECTIVE: Ms. Barclay is sitting up in bed this morning, crying. She is holding her left arm and stating that she is in severe left shoulder pain and unable to use her left arm. She states that she has had some improvement with her hydration. She is able to attempt to eat and drink clear liquids. She states her vomiting and diarrhea have ceased at this time, although she still has some nausea. OBJECTIVE: Vital Signs: Temperature 98.1 degrees, pulse rate 64, respiratory rate 16, blood pressure 133/89, O2 saturation 98% on room air. She is in 9/10 left shoulder pain. General: This is a chronically ill-appearing female that does not appear comfortable. HEENT: Sclerae are anicteric. PERRLA. Oral mucosa is dry. Cardiovascular: Normal S1, S2. Heart rate and rhythm regular. Respiratory: Lung sounds are clear. Respiratory effort normal. Gastrointestinal: Abdomen is soft. Tenderness noted on palpation. Skin: No petechiae, ecchymosis, or rashes noted. Positive tenting, very dry. Neurological: Awake, alert and oriented x3. No focal motor deficits. Musculoskeletal: Able to move left arm with passive motion but grimaces in pain. No deformities noted to the left shoulder. LABORATORY DATA: WBCs 3.81, hemoglobin 10.3, hematocrit 29.2, platelet count 126,000, ANC 2.23. RADIOLOGIC DATA: Chest x-ray reveals stable chest. ASSESSMENT: 1. Dehydration. 2. Nausea, vomiting and diarrhea. EGD shows diffuse ulcers. 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 3. Extensive stage small-cell lung cancer. PLAN: Continue to administer antinausea medications around the clock for the patient. Continue to hydrate her. Diarrhea continues to improve. Continue to give her a prednisone as well as Culturelle b.i.d. Patient has completed her outpatient prescriptions of Levaquin and Flagyl at this time. Appreciate GI input. Continue medical management. Please contact Orthopedics to assist the patient with left shoulder pain. She states she was scheduled to have an appointment with Dr. Espinoza for a joint injection. Dictated by WINDY Seth for Yefri Jaffe MD cc: Yefri Jaffe MD [facility]
[2019-01-26] MEDS: CULTURELLE PO SCH (20:13)
[2019-01-27] MEDS: HUMALOG SUBQ SCH ×4 (06:23→20:47)
[2019-01-27] MEDS: ZOFRAN PO SCH ×3 (06:24→16:05)
[2019-01-27] MEDS: NS 1,000 ML IV SCH (06:24)
[2019-01-27 06:25] LABS: BASO# 0.02 X1000 (0.0-0.2); BASO% 0.6 % (0.0-0.8); EOS# 0.06 X1000 (0.0-0.7); EOS% 1.7 % (0.0-10.0); HEMATOCRIT 29.6 % (37.0-47.0); HEMOGLOBIN 10.4 g/dL (12.0-16.0); IMM GRAN# 0.03 X1000 (0.0-0.04); IMM GRAN% 0.9 % (0.0-0.5); LYMPH# 1.15 X1000 (1.2-3.4); MCH 35.6 PG (27-31); MCHC 35.1 g/dL (33-37); MCV 101.4 FL (81-99); MONO# 0.23 X1000 (0.11-0.59); MONO% 6.6 % (1.7-9.3); MPV 8.1 FL (7.4-10.4); NEUT# 1.99 X1000 (1.4-6.5); NEUT% 57.2 % (42.2-75.2); PLT 129 X1000 (130-400); RBC 2.92 XMIL (4.2-5.4); WBC 3.48 X1000 (4.8-10.8)
[2019-01-27 06:26] LABS: POTASSIUM 3.4 mmol/L (3.5-5.1)
[2019-01-27] MEDS: MORPHINE IV PRN (07:33)
--- NOTE | 2019-01-27 08:37 | Diag Imaging Result Doc PS360 ---
EXAM: SCAPULA-LEFT 01/27/2019 HISTORY: L shoulder pain. TECHNIQUE: Left scapula three views COMMENT: There is no evidence of acute fracture or dislocation. Compared to 01/24/2019 there has been no appreciable change. IMPRESSION: No evidence of acute bony abnormality. Electronically signed by Hector Mercado 01/27/2019 8:35 AM
--- NOTE | 2019-01-27 09:48 | PROGRESS NOTE ---
DATE: 01/27/2019 SUBJECTIVE: This patient is complaining of severe shoulder pain today. We had an x-ray done, but we did not see any lesion. I will get Orthopedic Surgery Department to evaluate this patient. She is also hypokalemic. I will add potassium to her IV fluids. She seems to be tolerating a little bit diet, but she is having nausea. Hematology/Oncology Department and Gastroenterology Department on board. OBJECTIVE: Vital Signs: Temperature 97.9 degrees, pulse 73, respiratory rate 20, blood pressure 119/75, oxygen saturation 95% on room air. HEENT: Head normocephalic, no trauma. PERRLA. Neck: Supple. No JVD. No masses. Central trachea. She is complaining of left shoulder pain today and yesterday also. Abdomen: Soft, protuberant, generalized tenderness to palpation but mostly at the level of the epigastric and periumbilical area. Positive bowel sounds. Extremities: No edema, no clubbing, no cyanosis. Neurological: The patient is alert. She is oriented x3. No focal deficits. LABORATORY: WBC 3.4, hemoglobin 10.4, hematocrit 101.4, platelet count 129,000. Sodium 136, potassium 3.4, chloride 94, bicarbonate 24, BUN 6, creatinine 1, glucose 82, calcium 9. ASSESSMENT AND PLAN: 1. Intractable nausea, vomiting and diarrhea. Diarrhea seems to be better. She is still having some nausea. She is tolerating a little bit of liquid diet. We will continue with same management for now. 2. Metastatic small cell lung cancer with metastasis to the liver. I will continue following the recommendations of Hematology/Oncology Department. 3. Severely left shoulder pain. Probably this patient will need an intra-articular injection with steroids, but I will let the Orthopedic Surgery Department to evaluate this patient. I do not see anything in the x-ray. 4. Type 2 diabetes. Continue with sliding scale insulin and pattern blood sugar. 5. Anxiety. Aware. Continue with home medication. 6. Hypertension. Stable. cc: Kemal Leslie MD
[2019-01-27] MEDS: NS + KCL 20 MEQ 1,000 ML IV SCH (10:37)
[2019-01-27] MEDS: CULTURELLE PO SCH ×2 (10:38→20:43)
[2019-01-27] MEDS: OXYCONTIN PO SCH ×2 (10:38→20:43)
[2019-01-27] MEDS: PREDNISONE PO SCH (10:38)
[2019-01-27] MEDS: ZOLOFT PO SCH (10:38)
[2019-01-27] MEDS: ZYRTEC PO SCH (10:38)
[2019-01-27] MEDS: PROTONIX IV SCH (10:40)
[2019-01-27] MEDS ORDERED: DEPO-MEDROL ONE (14:38)
[2019-01-27] MEDS ORDERED: MARCAINE 0.25% INJ ONE (14:39)
[2019-01-27] MEDS ORDERED: XYLOCAINE 1% INJ ONE (14:40)
--- NOTE | 2019-01-27 16:02 | ORTHOPAEDICS CONSULTATION ---
DATE: 01/26/2019 SERVICE: Orthopedic surgery. REASON FOR CONSULTATION: Left shoulder pain. PAST MEDICAL HISTORY: 1. Small cell carcinoma of the lung. 2. Diabetes. 3. Hypertension. 4. Obesity. PAST SURGICAL HISTORY: 1. Neck surgery for resection of tumor. 2. Cholecystectomy. 3. Bilateral tubal ligation. 4. Tonsillectomy. 5. Tummy tuck. MEDICATIONS: 1. Reglan. 2. Zofran. 3. Phenergan. 4. Zoloft. 5. OxyContin. ALLERGIES: No known drug allergies. SOCIAL HISTORY: Patient is a former smoker, however has quit. She denies any alcohol or drug use. She is with a 7-year-old child. FAMILY HISTORY: Noncontributory. REVIEW OF SYSTEMS: Negative other than what was in history of present illness. CHIEF COMPLAINT: Left shoulder pain. HISTORY OF PRESENT ILLNESS: Ms. Barclay is a 53-year-old lady, who was admitted to the hospital for intractable nausea and vomiting. She has a history of small cell carcinoma, who has been treated with chemotherapy, as well as radiation therapy. Her last radiation treatment was back in mid November. She states she has shoulder pain that started about 4 days ago. She denies any falls, trauma, or other acute inciting events. She states she has had pain in the shoulder in the past, as well as her other shoulder. She has got a steroid injection in the right shoulder performed with Dr. Espinoza and did well with this. She states pain is made worse when she tries to reach above her head. The pain wakes her up at night. She has not done any type of anti-inflammatory therapy or other treatment for this. She is right-hand dominant. PHYSICAL EXAM: General: Ms. Barcaly is a 53-year-old female, who appears well nourished, well developed, no acute distress. She is awake, alert, oriented x3. She is very polite and cooperative during examination. Vital Signs: Temperature 97.9 degrees, heart rate 75, respiratory rate 18, blood pressure 126/91. HEENT: Normocephalic, atraumatic. Respiratory: Nonlabored breathing. Cardiovascular: Regular rate and rhythm. Extremity Examination: Left shoulder reveals skin to be intact. The patient has no erythema, swelling or warmth around the shoulder. She is tender to palpation over AC joint, anterior shoulder and lateral aspect of the shoulder, and rotator cuff insertion. Shoulder range of motion 0 to about 160 degrees forward flexion, 70 degrees external rotation, internal rotation in the lower lumbar spine. She has positive Stein and Neer impingement signs. Positive Mila's isolation test. Positive horn blower test. Negative bear-hug and belly press test. Motor is otherwise intact area in PI and ulnar nerve distribution. Sensation intact to light touch in median, radial, ulnar, axillary nerves. Radial pulses palpable and equal bilaterally. LABS: White count 3.5, hemoglobin 10.4, hematocrit 30, platelets 129. IMAGING: Three views of the left shoulder were obtained demonstrating no fracture or dislocation. Patient has lateral overhanging acromial osteophyte. She has osteophyte formation and degenerative changes in her AC joint. No fractures or dislocations appreciated. ASSESSMENT: This is a 53-year-old female with left shoulder impingement, bursitis and concern for rotator cuff tendinitis versus tear. PLAN: A long discussion with the patient regarding diagnosis and treatment options. She has had issues with the shoulder in the past. She has never had it operated on. Clinical exam concerning for bursitis, as well as possible rotator cuff tear. I will inject the shoulder with 80 mg Depo- Medrol under sterile conditions. She tolerated this well. We will get her plugged in with physical therapy to work on rotator cuff strengthening program upon discharge. I will see her in the office in about 4 weeks to see how she is doing. If she is still having significant issues once she gets over her current medical conditions and if she is not improved with physical therapy injections, I may consider MRI for further evaluation.
[2019-01-28] MEDS: NS + KCL 20 MEQ 1,000 ML IV SCH ×2 (02:13→14:34)
[2019-01-28] MEDS: HUMALOG SUBQ SCH ×4 (06:03→21:43)
[2019-01-28] MEDS: ZOFRAN PO SCH ×3 (06:21→16:22)
[2019-01-28] MEDS: PROTONIX IV SCH (09:01)
[2019-01-28] MEDS: ZYRTEC PO SCH (09:01)
[2019-01-28] MEDS: ZOLOFT PO SCH (09:01)
[2019-01-28] MEDS: OXYCONTIN PO SCH ×2 (09:02→20:01)
[2019-01-28] MEDS: CULTURELLE PO SCH ×2 (09:02→20:01)
[2019-01-28] MEDS: PREDNISONE PO SCH (09:02)
--- NOTE | 2019-01-28 10:45 | PROGRESS NOTE ---
DATE: 01/28/2019 SUBJECTIVE: This patient's shoulder pain is better today, around 4/10. Orthopedic Surgery evaluated this patient and they gave her a joint injection. Physical therapy also has been consulted to work on that shoulder as well. Gastroenterology Department evaluated this patient. Probably they will do a sigmoidoscopy probably tomorrow. OBJECTIVE: Vital Signs: Temperature 98 degrees, pulse 83, respiratory rate 20, blood pressure 112/59, oxygen saturation 95% on room air. HEENT: Head normocephalic. No trauma. PERRLA. Neck: Supple. No JVD. No masses. Central trachea. Left shoulder pain but better compared with yesterday. Abdomen: Soft, protuberant, generalized tenderness to palpation mostly at the level of the epigastric area and periumbilical area. Positive bowel sounds. Extremities: No edema, no clubbing, no cyanosis. Neurological: This patient is alert. She is oriented x3. No focal deficits. LABORATORY DATA: Glucose 109. ASSESSMENT AND PLAN: 1. Intractable nausea, vomiting and diarrhea, this is better. She is tolerating a little bit of liquid diet. Probably, she does have some colitis, so Gastroenterology Department will plan to do a diagnostic sigmoidoscopy, I will wait for recommendations. 2. Possible colitis, as above. 3. Metastatic small cell lung cancer with metastasis to the liver. We will continue to follow the recommendations of Hematology/Oncology Department and pain management. 4. Severe left shoulder pain, better compared with yesterday. The Orthopedic Surgery Department gave her a joint injection with steroids. She seems to be doing much better today. 5. Type 2 diabetes. Continue with sliding scale insulin and pattern blood sugar. 6. Anxiety, aware. Continue home medications. 7. Hypertension, stable. cc: Kemal Leslie MD
--- NOTE | 2019-01-28 12:58 | HEMO/ONC PROGRESS NOTE ---
DATE: 01/28/2019 SUBJECTIVE: Ms. Barclay appears to be doing better today. She states that her shoulder pain is around 4/10 after she received a joint injection from Orthopedics. Physical Therapy has also been working with her, she states. She states her nausea is slight, her diarrhea and vomiting have improved, and she is drinking and eating some. OBJECTIVE: Vital Signs: Temperature 98.1 degrees, pulse rate 77, respiratory rate 18, blood pressure 136/95, O2 saturation 97% on room air. She is in 4/10 left shoulder pain. General: This is an ill-appearing female in no acute distress. HEENT: Sclerae is anicteric. PERRLA. Oral mucosa is slightly dry. Cardiovascular: Normal S1, S2. Heart rate and rhythm is regular. Respiratory: Lung sounds are clear to auscultation. Normal respiratory effort. Abdomen: Soft, protuberant. Generalized tenderness remains. Bowel sounds are positive. Extremities: No edema noted. Neurological: Awake, alert, oriented x3. No focal motor deficits noted. LABORATORY DATA: No labs drawn today. ASSESSMENT: 1. Intractable nausea, vomiting, and diarrhea. This is improving. Most recent EGD shows diffuse ulcers with suspected immunotherapy-related colitis. On steroids. Gastroenterology Department is following and plans to do a diagnostic sigmoidoscopy possibly tomorrow. 2. Extensive stage small cell lung cancer. Therapy is temporarily on hold. 3. Left shoulder pain. The patient received a joint injection per Orthopedics. They will continue to follow up with her outpatient. PLAN: The patient needs to continue to receive antinausea medications as necessary, as well as prednisone taper and Culturelle b.i.d. We will continue to follow, and appreciate any recommendations per GI. Dictated by WINDY Seth for Yefri Jaffe MD cc: Yefri Jaffe MD [facility]
[2019-01-29] MEDS: NS + KCL 20 MEQ 1,000 ML IV SCH ×3 (03:32→20:47)
[2019-01-29] MEDS: MORPHINE IV PRN ×3 (05:31→12:01)
[2019-01-29 05:36] LABS: BASO# 0.01 X1000 (0.0-0.2); BASO% 0.3 % (0.0-0.8); HEMATOCRIT 32.8 % (37.0-47.0); HEMOGLOBIN 11.5 g/dL (12.0-16.0); LYMPH# 0.86 X1000 (1.2-3.4); LYMPH% 28.6 % (20.5-51.1); MCH 35.9 PG (27-31); MCHC 35.1 g/dL (33-37); MCV 102.5 FL (81-99); MONO% 6.6 % (1.7-9.3); MPV 8.3 FL (7.4-10.4); PLT 153 X1000 (130-400); RDW 15.3 % (11.5-14.5); WBC 3.01 X1000 (4.8-10.8)
[2019-01-29] MEDS: HUMALOG SUBQ SCH ×4 (06:09→20:45)
[2019-01-29 06:12] LABS: ALB/GLOB RATIO 1.2; ALBUMIN 4.5 g/dL (3.5-5.0); CALCIUM 10.2 mg/dL (8.8-10.2); CREATININE 1.2 mg/dL (0.5-0.9); MAGNESIUM 2.1 mg/dL (1.5-2.7); PHOSPHORUS 3.2 mg/dL (2.7-4.5); TOTAL BILIRUBIN 0.8 mg/dL (0.20-1.00); TOTAL PROTEIN 8.4 g/dL (6.3-8.3)
[2019-01-29] MEDS: ZOFRAN PO SCH ×3 (06:19→17:55)
[2019-01-29] MEDS: ZYRTEC PO SCH (08:42)
[2019-01-29] MEDS: PREDNISONE PO SCH (08:42)
[2019-01-29] MEDS: CULTURELLE PO SCH ×2 (08:42→20:46)
[2019-01-29] MEDS: ZOLOFT PO SCH (08:42)
[2019-01-29] MEDS: PROTONIX IV SCH (08:42)
[2019-01-29] MEDS: SODIUM CHLORIDE 0.9% INJ SCH (08:43)
--- NOTE | 2019-01-29 09:45 | PROGRESS NOTE ---
DATE: 01/29/2019 SUBJECTIVE: The patient was standing next to the bed, alert and oriented x3. Denied having any nausea or vomiting, but said that she has been having diarrhea because she was given an enema, but denied noticing any blood. She is NPO for the procedure. OBJECTIVE: General: The patient is in no acute distress. Vital signs: Temperature is 97.6 degrees, pulse is 74, respirations 20, blood pressure is 125/89, oxygen saturation is 97% on room air. Weight is 203, and BMI is 32.0 kg per meter squared. General appearance: She is standing next to her bed. She is alert and oriented x3, in no acute distress. HEENT: Pale conjunctivae. No icterus. PERRL. Neck: Supple. Lungs: Decreased breath sounds in the anterior and posterior gusman. No abnormal breath sounds heard. Cardiovascular: Regular rate and rhythm. No rubs, murmurs, or gallops heard on auscultation. Abdomen: Soft, nondistended. Complains of left-sided abdominal pain, left lower quadrant. On a scale of 1 to 10, it is 2. Bowel sounds heard in all 4 quadrants. Extremities: No cyanosis, clubbing, or edema noted, 2+ pulses bilaterally. Neurologic: Alert and oriented x3. Nonfocal. Cranial nerves II through XII grossly intact. LABORATORY DATA: WBC is 3.01, RBC 3.2, hemoglobin 11.5, hematocrit 32.8, platelet count is 153,000. Chemistry: Sodium is 137, potassium is 4.0, chloride is 95, carbon dioxide 25, anion gap is 17, BUN is 8, creatinine is 1.2, glucose is 85. Urinalysis done on 01/25/2019 showed a trace of ketones. ASSESSMENT AND PLAN: 1. Dehydration. 2. Nausea, vomiting, diarrhea. 3. Extensive stage small-cell cancer. 4. Hypertension. Aware. 5. Anxiety. Aware. 6. Type 2 diabetes. Aware. 7. Left shoulder pains. PLAN: Dr. Lam will be doing a sigmoidoscopy today.. She is on fluids, normal saline with 20meq of potassium at 75 ml per hour, antiemetic for nausea and vomiting. We will continue with GI prophylaxis as prescribed, and also continue to monitor her labs. She is NPO for the procedure, but she said that she could tolerate her soup yesterday. After doing the sigmoidoscopy, we will decide the plan of care. This plan was discussed with Dr. Lam and the patient. The patient acknowledges understanding of the plan of care. Please give us a call for any further questions. Dictated by WINDY Morin for Andre Lam MD cc: Andre Lam MD I have seen and examined the above patient myself. I agree with the above assessment and plan of care. Please call us with any questions or concerns. FAROOQ
[2019-01-29] MEDS ORDERED: DIPRIVAN 1% ONE (09:46)
[2019-01-29] MEDS ORDERED: XYLOCAINE-MPF 2% ONE (10:12)
--- NOTE | 2019-01-29 10:58 | ENDOSCOPY OPERATIVE NOTE ---
[facility] ENDOSCOPY OPERATIVE NOTE , PATIENT: Rita Barclay ADM DATE: MR #: [id number] : 1965 COLONOSCOPY PROCEDURE REPORT PROCEDURE DATE: 01/29/2019 SURGEON: Andre Lam MD STATUS: inpatient CDL TRUCK DRIVER: Milvia Duque PREOPERATIVE DIAGNOSIS: The patient is a 53 yr old female here for a colonoscopy due to Small cell l jatin cancer on keytruda; Nausea, Diarrhea; Patient had colon/EGD adam 01-12-19 which showed Gastritis, colitis -negativ e HSV and CMV. PROCEDURE PERFORMED: Colonoscopy, diagnostic MEDICATIONS: Per Anesthesia PREP TYPE: GoLytely
--- NOTE | 2019-01-29 11:43 | PROGRESS NOTE ---
DATE: 01/29/2019 SUBJECTIVE: No big changes compared with yesterday. She is still complaining of some shoulder pain. She will go for a sigmoidoscopy today. We will wait for the results. OBJECTIVE: Vital Signs: Temperature 97.6 degrees, pulse 74, respiratory rate 20, blood pressure 125/89, oxygen saturation 97% on room air. HEENT: Head normocephalic. No trauma. PERRLA. Neck: Supple. No JVD. No masses. Central trachea. Chest: Clear to auscultation. Some crepitus at the bases. Left shoulder pain. Abdomen: Soft, protuberant, generalized tenderness to palpation, mostly at the level of the epigastric area and periumbilical area. Positive bowel sounds. Extremities: No edema, no clubbing, no cyanosis. Neurological: Alert. She is oriented. No deficits. LABORATORY DATA: WBC 3, hemoglobin 11.5, hematocrit 32.8, platelet count 153,000. Sodium 137, potassium 4, chloride 95, bicarbonate 25, BUN 8, creatinine 1.2, glucose 93, calcium 10.2. AST 52, ALT 31, alkaline phosphatase 103, albumin 4.5. ASSESSMENT AND PLAN: 1. Intractable nausea, vomiting, and diarrhea. This is better. Continue with the same management. Gastroenterology Department on board. 2. Possible colitis. Sigmoidoscopy will be performed today. Will monitor the results. 3. Metastatic small-cell lung cancer with metastasis to the liver. Continue following the recommendations of Hematology/Oncology Department, and pain management. 4. Severe left shoulder pain, which is better compared with a few days ago, but she is still complaining of pain. She received a joint injection with steroids by Orthopedic Surgery Department. 5. Type 2 diabetes. Continue with sliding scale insulin and pattern of blood sugar. 6. Anxiety. Aware. Continue home medication. 7. Hypertension, stable. cc: Kemal Leslie MD
[2019-01-29] MEDS: OXYCONTIN PO SCH ×2 (12:13→20:46)
[2019-01-29] MEDS: CARAFATE PO SCH ×2 (12:19→17:51)
--- NOTE | 2019-01-29 12:55 | HEMO/ONC PROGRESS NOTE ---
DATE: 01/29/2019 SUBJECTIVE: Ms. Barclay continues to improve daily. She states that her nausea and diarrhea continue to be resolved. She does still have some mild nausea but she is able to eat and drink more every day. She states her shoulder is feeling much better after receiving a joint injection. However, it is rather sore since she started working with physical therapy yesterday. The patient is preparing for a colonoscopy today for re-evaluation of colitis. She has no complaints today. OBJECTIVE: Vital Signs: Temperature 97.6 degrees, pulse rate 74, respiratory rate 20, blood pressure 125/89, O2 saturation 99% on room air. She is in 5/10 left shoulder pain. Physical Examination: General: This patient is in no acute distress. HEENT: Sclerae are anicteric. PERRLA. Oral mucosa is moist. Cardiovascular: Normal S1, S2. Heart rate and rhythm regular. Respiratory: Chest is clear to auscultation. Normal respiratory effort. Gastrointestinal: Soft, protuberant. Generalized tenderness to palpation. Bowel sounds were positive. Extremities: No lower extremity edema noted. Decreased range of motion to left shoulder. Neurological: Awake, alert, and oriented x3. No focal motor deficits noted. Laboratory: WBCs 3.01, hemoglobin 11.5, hematocrit 32.8, platelet count 153,000. Creatinine 1.2. ASSESSMENT: 1. Intractable nausea, vomiting, and diarrhea. 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 This has improved. 2. Extensive stage small cell lung cancer. Therapy is temporarily on hold. 3. Left shoulder pain, status post joint injection. Physical therapy on board. PLAN: The patient had a sigmoidoscopy today with Dr. Lam. It revealed no underlying colitis identified, internal hemorrhoids and constipation. He suggested the patient begin weaning off the steroids over the next 2 weeks. The patient needs to remain on Culturelle b.i.d. as well as nausea medicine. Continue to treat the patient per medical management. We will continue to follow and follow up with her outpatient. Dictated by WINDY Seth for Yefri Jaffe MD cc: [facility]
[2019-01-29] MEDS: MIRALAX PO SCH (17:50)
[2019-01-30] MEDS: CARAFATE PO SCH ×2 (00:12→06:46)
[2019-01-30] MEDS: MORPHINE IV PRN (04:24)
[2019-01-30] MEDS: HUMALOG SUBQ SCH (06:09)
[2019-01-30] MEDS: ZOFRAN PO SCH (06:46)
[2019-01-30 08:00] VITALS: BP 128/94
[2019-01-30] MEDS: PROTONIX IV SCH (09:17)
[2019-01-30] MEDS: MIRALAX PO SCH (09:17)
[2019-01-30] MEDS: ZOLOFT PO SCH (09:18)
[2019-01-30] MEDS: PREDNISONE PO SCH (09:18)
[2019-01-30] MEDS: CULTURELLE PO SCH (09:18)
[2019-01-30] MEDS: ZYRTEC PO SCH (09:18)
[2019-01-30] MEDS: SODIUM CHLORIDE 0.9% INJ SCH (09:18)
[2019-01-30] MEDS: OXYCONTIN PO SCH (09:23)
--- NOTE | 2019-01-30 13:36 | HEMO/ONC PROGRESS NOTE ---
DATE: 01/30/2019 SUBJECTIVE: Ms Barclay is sitting up in bed this morning. She continues to complain of left shoulder pain. She states otherwise she tolerated her procedure very well yesterday, she is continuing to feel better from that standpoint. Her vomiting and diarrhea have ceased. Her nausea is almost gone. She is eating and drinking well. She denies any abdominal pain. OBJECTIVE: Vital Signs: Temperature 98.3 degrees, pulse rate 82, respiratory rate 14, blood pressure 128/94, O2 saturation 96% on room air. She is in 3/10 left shoulder pain. PHYSICAL EXAM: General: The patient is in no acute distress. HEENT: Sclerae is anicteric. Her oral mucosa is pink and moist. Cardiovascular: Normal S1, S2. Heart rate and rhythm is regular. Respiratory: Chest clear to auscultation. Normal respiratory effort. Gastrointestinal: Soft, protuberant, minimal tenderness over epigastric area. Bowel sounds are positive. Extremities: No lower extremity edema noted. Decreased range of motion to left shoulder. Neurologic: Alert and oriented x3. No focal motor deficits noted. LABORATORY: No laboratories drawn today. ASSESSMENT: 1. Intractable nausea, vomiting, diarrhea. 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 This has improved. 2. A stage small cell lung cancer. Therapy is temporarily on hold. 3. Left shoulder pain status post joint injection. Physical therapy on board. PLAN: Patient is okay for discharge from our standpoint. She will follow up with Dr. Lam and continue weaning off her steroids. She will follow up with us next week is aware of her appointment schedule. Dictated by WINDY Seth for Yefri Jaffe MD cc: Yefri Jaffe MD [facility]
--- NOTE | 2019-01-31 01:39 | DISCHARGE SUMMARY ---
ADMISSION DATE: 01/25/2019 DISCHARGE DATE: 01/30/2019 DISCHARGE DIAGNOSES: 1. Intractable nausea, vomiting, and diarrhea. 2. Colitis, which has been ruled out. 3. Metastatic small cell lung cancer with metastasis to the liver. 4. Severe left shoulder pain due to likely osteoarthritis versus left shoulder impingement, bursitis, and concern for rotator cuff tendinitis versus tear. 5. Type 2 diabetes. 6. Anxiety. 7. Hypertension. PROCEDURES PERFORMED: 1. Abdomen x-ray dated 01/25/2019. Impression: No evidence of obstruction, otherwise nonspecific abdomen. 2. Chest x-ray dated 01/25/2019. Impression: Cardiomegaly. 3. Chest x-ray dated 01/26/2019. Impression: Stable chest. 4. Scapula x-ray dated 01/27/2019. Impression: No evidence of acute bony abnormality. 5. Endoscopic procedure dated 01/29/2019. Impression: Right-sided constipation, internal hemorrhoids grade 2, resolution of colitis, which was noted on 01/12/2019. 6. Joint injection, left shoulder with 80 mg of Depo-Medrol on 01/26/2019. CONSULTS: 1. Hematology/oncology Department, Dr. Jaffe. 2. Gastroenterology Department, Dr. Yu. 3. Orthopedic surgery Department, Dr. Jair Cassidy. HOSPITAL COURSE: A 53-year-old female with a past medical history of small cell lung cancer, followed by Dr. Jaffe. She reported that after chemotherapy and radiation, she has been receiving aftercare medications, and since that time she has felt severely dehydrated, dry mouth, dry eyes, and chronic diarrhea, nausea and vomiting, decrease in appetite, and unable to keep food down. She was admitted on 01/25/2019. She also followed with Dr. Lam. They did an EGD and colonoscopy. Apparently, they removed a polyp and found some gastric ulcer, and has been taking her treatment as prescribed. However, she has been having episodes of diarrhea, prior to her EGD and colonoscopy, she would just have clear diarrhea 6 to 7 times per day, and since then has been about 4 times a day and she describes this as stringy continued extremely dry mouth and nothing helps it. She has been to Dr. Jaffe's office basically every day for IV fluids. She went to the ED at [place] the night prior to admission complaining of left shoulder pain, and she was told to follow up with Dr. Espinoza for a shot in that shoulder. Apparently, the colonoscopy that she had before showed a colitis that probably was related with her treatment, because of intractable nausea, vomiting, and diarrhea, she has been admitted and she was placed on IV fluids. She received, also, pain medication, and she was evaluated by Orthopedic surgery, which they went ahead and put an injection in her left shoulder. She felt better after that, but she is still complaining of pain. Her nausea, vomiting, and diarrhea basically is much better. She was able to tolerate p.o., although she has been still weak. They did a colonoscopy that showed basically the resolution of the colitis, which showed also right-sided constipation, internal hemorrhoids. They recommended to wean down steroids in 2 weeks. Continue with MiraLAX once or twice a day. Add Carafate for 4 weeks, and decrease narcotics to lowest possible, start PPIs for 3 month and begin antireflux lifestyle. This patient seems to be doing better. She will be discharged today. Follow up with Dr. Jaffe as an outpatient. Follow up with Dr. Cassidy, Orthopedic Surgery Department, also. She will need to repeat a colonoscopy in 1 year, per Gastroenterology Department recommendations. DISCHARGE PHYSICAL EXAMINATION: Vital signs: Temperature 98.3 degrees, pulse 82, respiratory rate 14, blood pressure 128/94. Oxygen saturation 94% on room air. HEENT: Head normocephalic, atraumatic. PERRLA. Neck: Supple. No JVD. No masses. Central trachea. Chest: Clear to auscultation. Some crepitus at the bases, left shoulder pain. Abdomen: Soft, protuberant, generalized tenderness to palpation, mostly at the level of the periumbilical area and epigastric area, but better compared with admission. Positive bowel sounds. Extremities: No edema, no clubbing, no cyanosis. Neurological: The patient is alert. She is oriented. No focal deficits. LABORATORY: Lab work from yesterday: WBC 3, hemoglobin 11.5, hematocrit 32.8, platelets 153,000. Sodium 137, potassium 4, chloride 95, bicarbonate 25, BUN 8, creatinine 1.2. Glucose 93, calcium 10.2. DISCHARGE MEDICATIONS: 1. Zyrtec 10 mg p.o. daily. 2. Culturelle 1 tablet p.o. b.i.d. 3. Levofloxacin 750 mg p.o. daily. 4. Reglan 10 mg p.o. q.6 hours as needed. 5. Ondansetron 4 mg p.o. q.6 hours as needed. 6. Oxycodone ER 10 mg p.o. q.12 hours. 7. Pantoprazole 10 mg p.o. daily. 8. MiraLAX 17 g p.o. daily. 9. Prednisone 20 mg p.o. daily, and we will taper this down slowly for 2 weeks. 10. Sertraline 100 mg p.o. daily. 11. Carafate 1 g p.o. 4 times a day for 6 weeks. TIME SPENT: Discharging this patient 35 minutes cc: Kemal Leslie MD
== END 2019-01-30 10:33 | disposition home health service (06) | DRG 641 ==
LOC: SUATTDRO 12:26 → DIRADM 12:26 → EDIPHOLD 12:46 → 1N 14:57
PROVIDERS: ATTEND Internal Medicine

== ENCOUNTER 2019-02-20 17:24 | Inpatient (IN) ==
[2019-02-20] MEDS: DUONEB (A & A) INH SCH (22:24)
[2019-02-20] MEDS: HUMALOG SUBQ SCH (22:28)
[2019-02-20] MEDS: ROCEPHIN 1 GM in NS 50 ML IV SCH (22:29)
[2019-02-20] MEDS: LEVAQUIN 750 MG/D5W 750 MG/150 ML IVPB IV SCH (22:29)
[2019-02-20 22:30] LABS: BASO# 0.01 X1000 (0.0-0.2); BASO% 0.3 % (0.0-0.8); EOS# 0.03 X1000 (0.0-0.7); EOS% 0.9 % (0.0-10.0); HEMATOCRIT 32.5 % (37.0-47.0); HEMOGLOBIN 11.1 g/dL (12.0-16.0); IMM GRAN# 0.04 X1000 (0.0-0.04); IMM GRAN% 1.1 % (0.0-0.5); LYMPH# 1.09 X1000 (1.2-3.4); LYMPH% 31.2 % (20.5-51.1); MCH 36.4 PG (27-31); MCHC 34.2 g/dL (33-37); MCV 106.6 FL (81-99); MONO# 0.24 X1000 (0.11-0.59); MONO% 6.9 % (1.7-9.3); MPV 8.9 FL (7.4-10.4); NEUT# 2.08 X1000 (1.4-6.5); NEUT% 59.6 % (42.2-75.2); PLT 123 X1000 (130-400); RBC 3.05 XMIL (4.2-5.4); RDW 14.9 % (11.5-14.5); WBC 3.49 X1000 (4.8-10.8)
[2019-02-20 22:42] LABS: HEMOGLOBIN A1C 4.9 % (4.8-6.0)
[2019-02-20 22:49] LABS: LYMPHS 21 % (21-51); MONO 7 % (1-9); NRBC 1 % (0-0); POLYCHROM OCCASIONAL; SEGS 72 % (42-75)
[2019-02-20 22:50] LABS: ALB/GLOB RATIO 0.9; ALBUMIN 3.6 g/dL (3.5-5.0); CALCIUM 10.7 mg/dL (8.8-10.2); CREATININE 1.3 mg/dL (0.5-0.9); POTASSIUM 3.6 mmol/L (3.5-5.1); TOTAL BILIRUBIN 1.18 mg/dL (0.20-1.00); TOTAL PROTEIN 7.6 g/dL (6.3-8.3)
[2019-02-21] MEDS: DUONEB (A & A) INH SCH ×4 (03:46→23:10)
[2019-02-21 04:18] LABS: URINE SOURCE CLEAN CATCH
[2019-02-21 04:23] LABS: BILIRUBIN URINE SMALL (NEGATIVE); BLOOD URINE NEGATIVE (NEGATIVE); COLOR YELLOW; GLUCOSE URINE NEGATIVE (NEGATIVE); KETONE URINE 10 mg/dL (NEGATIVE); LEUKOCYTES URINE LARGE (NEGATIVE); NITRITE URINE NEGATIVE (NEGATIVE); PH URINE 5.5; PROTEIN URINE TRACE mg/dL (NEGATIVE); TURBIDITY URINE HAZY (CLEAR); UROBILINOGEN URINE 2 mg/dL (NORMAL)
[2019-02-21 04:25] LABS: UR EPITHELIAL CELLS <10 /HPF (<10); URINE BACTERIA NEGATIVE /HPF; URINE RBC <10 /HPF (<10); URINE WBC TNTC /HPF (<10)
[2019-02-21] MEDS: NS 1,000 ML IV SCH ×2 (05:55→16:11)
[2019-02-21] MEDS ORDERED: REGLAN PO PRN (06:20)
[2019-02-21] MEDS ORDERED: PERCOCET-10 PO PRN ×2 (06:20→15:15)
[2019-02-21] MEDS ORDERED: PHENERGAN PO PRN (06:20)
[2019-02-21] MEDS: HUMALOG SUBQ SCH ×4 (06:32→21:40)
[2019-02-21] MEDS: PROTONIX PO SCH (06:41)
--- NOTE | 2019-02-21 07:09 | HISTORY AND PHYSICAL ---
CHIEF COMPLAINT: Weakness, dehydration. HISTORY OF PRESENT ILLNESS: Ms. Barclay is a 53-year-old female with a history of small cell lung cancer who is followed by Dr. Jaffe. She has finished chemo and radiation. She is still receiving aftercare medications by Dr. Jaffe. She has felt very dehydrated. She has had dry mouth, dry eyes, nausea with no vomiting, decreased appetite. She was having major weakness and fatigue. She cares for her son who has autism. Home health provider came out to see her yesterday and found her in the bathroom too weak to get back to her bed. She was carried to [facility] and then transferred to [facility]. Chest x-ray at [facility] showed infiltrates consistent with pneumonia. She was also noted to be dehydrated with a urinary tract infection. she will be admitted for further evaluation and treatment. PAST MEDICAL HISTORY: 1. Small cell lung cancer status post chemo and radiation, receiving aftercare medications. 2. Nausea, vomiting, diarrhea. 3. Hypertension. 4. Anxiety. 5. Diabetes mellitus type 2. 6. Chronic back pain. 7. Restless leg syndrome. PREVIOUS SURGICAL HISTORY: 1. Surgical fusion of the neck. 2. Tummy tuck in 2015. 3. Cholecystectomy. 4. Tubal ligation in 1990. 5. Lung biopsy June 2018. 6. EGD and colonoscopy. SOCIAL HISTORY: Former smoker, quit in 2015. No alcohol or illicit drugs. Has an autistic son who is mute. FAMILY HISTORY: Mother has diabetes mellitus. Father from mesothelioma of the lungs, I believe. Has a sister who is being treated for breast cancer. ALLERGIES: Latex. HOME MEDICATIONS: 1. Zyrtec 10 mg p.o. daily. 2. Culturelle 1 p.o. b.i.d. 3. Reglan 10 mg p.o. q.6. 4. Zofran 8 mg p.o. b.i.d. 5. Oxycodone 10 mg q.4-6 p.r.n. 6. Protonix 40 mg daily. 7. MiraLAX 17 grams daily. 8. Phenergan 25 mg p.o. q.6 p.r.n. 9. Zoloft 50 mg p.o. daily. 10.Carafate 1 gram four times a day. REVIEW OF SYSTEMS: Fourteen point review of systems conducted with the patient. Pertinent positives listed above in the HPI. All other systems reviewed and found to be negative. PHYSICAL EXAMINATION: VITAL SIGNS: Temp 98.3 degrees, pulse 95, respirations 18, blood pressure 100/67, oxygen saturation 97% on room air. GENERAL: Pleasant 53-year-old female lying in the ER stretcher. She is alert and oriented x3 and in no acute distress. HEENT: Head is atraumatic, normocephalic. Pupils equal, round and reactive to light. Extraocular eye movements intact. Sclerae anicteric. Conjunctivae pale. Oral mucosa is dry. NECK: Supple. No JVD. No thyromegaly. Trachea is midline. No cervical lymphadenopathy. CARDIAC: S1, S2 appreciated. No murmurs, gallops, rubs. LUNGS: Mild expiratory wheezing. No rhonchi. No rales. Symmetric rise and fall of respirations. ABDOMEN: Soft, nondistended, nontender. Bowel sounds present in all 4 quadrants. Normoactive. No pulsatile mass. No organomegaly. EXTREMITIES: No cyanosis, clubbing or edema. 1+ pedal pulses bilaterally. Bilateral lower extremities are cool to touch. GENITOURINARY: No bladder distention. Patient voids. Otherwise deferred. NEUROLOGICAL: Alert and oriented x3. No focal motor deficits. Otherwise nonfocal examination. DIAGNOSTIC DATA: Repeat PA and lateral chest x-ray is pending for 6 a.m. LABORATORY DATA: WBC 3.49, hemoglobin 11.1, hematocrit 32.5, platelet count 123,000. Sodium 133, potassium 3.6, chloride 96, carbon dioxide 19, BUN 18, creatinine 1.3, glucose 131. Urine: Too numerous to count WBCs, leuko esterase positive. ASSESSMENT AND PLAN: 1. Pneumonia. We will treat with Levaquin and Rocephin, DuoNeb. We will get sputum cultures and blood cultures. 2. Urinary tract infection. This will be treated with antibiotic selection above. We will send urine culture. 3. History of small cell lung cancer, aware. We will consult Dr. Jaffe. 4. Chronic pain syndrome. We will continue [place]. 5. Fluid volume depletion with acute kidney injury. We will give normal saline and continue to monitor fluid volume status. 6. Diabetes mellitus type 2. Sliding scale insulin, fingerstick blood sugars. Further recommendations per patient's clinical course. Dictated by WINDY Schafer for Braulio Saucedo MD I have performed a face to face diagnostic evaluation. Labs/Xrays- reviewed. Exam- Chest bibasilar rales, CV- regular, Abd- soft. A/P- Pneumonia- Admit, Check blood cultures, IV ABX. Dr. Saucedo cc: WINDY Schafer MD Naveen T. Lobo, MD Dr. Beech MTDD
[2019-02-21 07:32] LABS: BASO# 0.01 X1000 (0.0-0.2); BASO% 0.3 % (0.0-0.8); EOS# 0.02 X1000 (0.0-0.7); EOS% 0.7 % (0.0-10.0); HEMATOCRIT 31.1 % (37.0-47.0); HEMOGLOBIN 10.4 g/dL (12.0-16.0); IMM GRAN# 0.03 X1000 (0.0-0.04); LYMPH# 0.66 X1000 (1.2-3.4); LYMPH% 21.6 % (20.5-51.1); MCH 35.5 PG (27-31); MCHC 33.4 g/dL (33-37); MCV 106.1 FL (81-99); MONO# 0.22 X1000 (0.11-0.59); MONO% 7.2 % (1.7-9.3); MPV 9.1 FL (7.4-10.4); NEUT# 2.12 X1000 (1.4-6.5); NEUT% 69.2 % (42.2-75.2); PLT 120 X1000 (130-400); RBC 2.93 XMIL (4.2-5.4); RDW 14.7 % (11.5-14.5); WBC 3.06 X1000 (4.8-10.8)
[2019-02-21 07:52] LABS: CALCIUM 10.9 mg/dL (8.8-10.2); CREATININE 1.3 mg/dL (0.5-0.9); POTASSIUM 3.4 mmol/L (3.5-5.1)
--- NOTE | 2019-02-21 08:28 | Diag Imaging Result Doc PS360 ---
EXAM: CHEST-2 VIEWS INDICATION: Pneumonia TECHNIQUE: One view COMPARISON: 01/26/2019 FINDINGS: The left chest port is in stable position. There is a small left pleural effusion and there is adjacent atelectasis and/or infiltrate at the left lung base. The right lung is clear. There is stable cardiomegaly. IMPRESSION: Small left pleural effusion with adjacent atelectasis and/or infiltrate at the left lung base. Electronically signed by Hu Carmona 02/21/2019 8:26 AM
[2019-02-21] MEDS: MIRALAX PO SCH (09:02)
[2019-02-21] MEDS: CULTURELLE PO SCH ×2 (09:03→20:28)
[2019-02-21] MEDS: CARAFATE PO SCH ×4 (09:03→20:28)
[2019-02-21] MEDS: ZYRTEC PO SCH (09:03)
[2019-02-21] MEDS: ZOLOFT PO SCH (09:03)
[2019-02-21] MEDS: ZOFRAN ODT PO SCH ×2 (09:03→20:28)
--- NOTE | 2019-02-21 15:34 | PROGRESS NOTE ---
DATE: 02/21/2019 SUBJECTIVE: Patient has no major complaints. OBJECTIVE: Blood pressure 96/69, heart rate 90, respiratory rate 16, temperature 97.8 degrees and 99% on room air.Cardiovascular: Regular rate and rhythm. Pulmonary: Bilateral breath sounds clear to auscultation. GI: Soft, nontender, and nondistended. Bowel sounds are positive. LABORATORY DATA: White count is 3, hemoglobin and hematocrit 10 and 31, platelets 120,000, creatinine 1.3, and calcium 10.9. PROBLEM LIST: 1. Pneumonia, but she has a history of small cell cancer. I may get a CT without contrast just to better delineate pneumonia versus tumor and see how she does. 2. UTI putative. She is on antibiotics. We will continue to monitor. 3. History of small cell lung cancer. She is not undergoing aggressive chemotherapy. I think she is on some immune modulation therapies now per Dr. Jaffe. 4. Acute kidney injury. We will continue gentle hydration and repeat labs tomorrow. 5. Anticipate discharge soon. cc: Brando Macario MD
--- NOTE | 2019-02-21 16:37 | Diag Imaging Result Doc PS360 ---
EXAM: CT THORAX W/O CONTRAST 02/21/2019 HISTORY: pneumonia/smcll lung cancer TECHNIQUE: This exam was performed using automated exposure control, adjustment of mA or kV according to patient size, and/or use of iterative reconstruction technique. COMMENT: The current study is compared with the previous examination of 08/13/2018. There is bilateral supraclavicular adenopathy which was not previously the case. There is massive superior mediastinal adenopathy particularly in the aorticopulmonary window and right paratracheal regions. There are large nodes anterior to the upper pericardium. There is a pericardial effusion. There is a loculated left pleural effusion. There is an epicardial node on the left on image 82 measuring 18 mm in diameter. All of this is much worse than on the previous examination. There are postsurgical changes in the lower cervical spine. There are spondylotic changes in the thoracic spine. There is a healing left posterior ninth rib fracture. There are atelectatic changes present in the left lower lobe and lingula. The possibility of postobstructive pneumonia cannot be excluded particularly with regard to the left lower lobe. There are some atelectatic or fibrotic changes medially in the right lower lobe which were not present previously. The patchy and nodular opacities which were previously demonstrated in the right lower lobe are no longer present. There is also linear opacity in the medial portion of the right middle lobe which was not present previously. IMPRESSION: Markedly worsened adenopathy as described above. Pericardial effusion and left pleural effusion,both of which may be malignant. Atelectatic changes as described. Electronically signed by Hector Mercado 02/21/2019 4:34 PM
--- NOTE | 2019-02-21 17:38 | HEMO/ONC CONSULTATION ---
DATE: 02/21/2019 REASON FOR CONSULTATION: This is a known patient of ours for the treatment of extensive stage small-cell lung cancer. HISTORY OF PRESENT ILLNESS: Ms. Barclay is a 53-year-old female with a history of extensive stage small-cell lung cancer. The patient completed chemotherapy with carboplatin, etoposide, and Tecentriq earlier this year, on 09/25/2018. She began Tecentriq only immunotherapy on 09/25/2018. Thus far, the patient has completed 9 treatments with Tecentriq only. The patient has had several hospitalizations as of lately. She had a bout of significant diarrhea, nausea, and vomiting which ended with severe dehydration. 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 She was discharged on 01/30/2015. Since then, she has continued to have a lack of appetite, not eating or drinking very much, and feels weak with significant fatigue. 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 Last night she was found by a home health provider in her bathroom too weak to return to bed. She explained to me she went in there to help her son but was so dizzy she had to sit down and wait on someone to come help her. She states her mouth is very dry. She is weak. She is dizzy and she does not feel good at all. Patient's last dose of Tecentriq was 12/18/2018. She has since been in the office multiple times to receive IV fluids and Zofran. PAST MEDICAL HISTORY: Diabetes, hypertension, depression, small-cell lung cancer. PAST SURGICAL HISTORY: Port placement, neck surgery, cholecystectomy, and tummy tuck. ALLERGIES: No known drug allergies. She is allergic latex. HOME MEDICATIONS: Zyrtec, Reglan, Zofran, OxyContin, Phenergan, and Zoloft. SOCIAL HISTORY: She is a former smoker. She denies alcohol or illicit drug use. Since the beginning of January the patient has lost 23 pounds. REVIEW OF SYSTEMS: Otherwise negative. Pertinent positives are noted in the HPI. PHYSICAL EXAMINATION: Vital Signs: Temperature 97.8 degrees, pulse rate 90, respiratory rate 16, blood pressure 96/69, O2 saturation is 99% on nasal cannula at 2 L. She is in 0/10 pain. General: She appears chronically ill and does not appear to be comfortable. She is tearful. HEENT: Sclera is anicteric. Pupils PERRLA. Oral mucosa is very dry. Cardiovascular: Normal S1, S2. Heart rate and rhythm is regular. Respiratory: Respiratory effort is normal. Lung sounds are clear to auscultation. Gastrointestinal: Abdomen is soft. Tenderness noted in the epigastric area. Bowel sounds are present. Skin: No petechiae, ecchymosis, or rashes noted. Positive for tenting. Very dry. Neurological: Awake, alert, oriented x3. No focal motor deficits. LABORATORY: WBC 3.06, hemoglobin 10.4, hematocrit 31.1, platelet count 127,000. ANC 2.12. Creatinine 1.3, sodium 135, potassium 3.4, calcium 10.9, total bilirubin 1.18, alkaline phosphatase 141. Urinalysis positive for infection. RADIOLOGY: CT scan shows markedly worsened adenopathy. Pericardial effusion and left pleural effusion. ASSESSMENT AND PLAN: 1. Pneumonia. Continue to treat per medical management. 2. Urinary tract infection. Continue management. 3. Small-cell lung carcinoma, currently on immunotherapy. 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 Will review current CT. 4. Dehydration and acute kidney injury. Replete the patient per protocol. We will continue to follow the patient very closely. Please let us know if we are needed. 5. Elevated calcium: Recheck calcium after hydration. Plan accordingly. Dictated by WINDY Seth for Yefri Jaffe MD cc: Yefri Jaffe MD [facility]
[2019-02-21] MEDS: ROCEPHIN 1 GM in NS 50 ML IV SCH (20:30)
[2019-02-21] MEDS: LEVAQUIN 750 MG/D5W 750 MG/150 ML IVPB IV SCH (21:40)
[2019-02-22] MEDS: DUONEB (A & A) INH SCH ×4 (03:43→22:49)
[2019-02-22] MEDS: HUMALOG SUBQ SCH ×4 (06:43→21:10)
[2019-02-22 07:30] LABS: BASO# 0.01 X1000 (0.0-0.2); BASO% 0.5 % (0.0-0.8); EOS# 0.01 X1000 (0.0-0.7); EOS% 0.5 % (0.0-10.0); HEMATOCRIT 27.3 % (37.0-47.0); HEMOGLOBIN 9.2 g/dL (12.0-16.0); IMM GRAN# 0.04 X1000 (0.0-0.04); LYMPH# 0.52 X1000 (1.2-3.4); MCH 36.1 PG (27-31); MCHC 33.7 g/dL (33-37); MCV 107.1 FL (81-99); MONO# 0.16 X1000 (0.11-0.59); MPV 8.8 FL (7.4-10.4); NEUT# 1.26 X1000 (1.4-6.5); PLT 113 X1000 (130-400); RBC 2.55 XMIL (4.2-5.4); RDW 14.9 % (11.5-14.5)
[2019-02-22 07:43] LABS: CALCIUM 10.2 mg/dL (8.8-10.2); CREATININE 1.1 mg/dL (0.5-0.9); POTASSIUM 3.8 mmol/L (3.5-5.1)
[2019-02-22] MEDS ORDERED: CYANOCOBALAMIN IM ONE (09:31)
[2019-02-22] MEDS: CULTURELLE PO SCH ×2 (09:49→21:12)
[2019-02-22] MEDS: ZYRTEC PO SCH (09:49)
[2019-02-22] MEDS: ZOLOFT PO SCH (09:49)
[2019-02-22] MEDS: CARAFATE PO SCH ×4 (09:49→21:12)
[2019-02-22] MEDS: ZOFRAN ODT PO SCH ×3 (09:49→21:11)
[2019-02-22] MEDS: MIRALAX PO SCH (09:50)
[2019-02-22] MEDS: ARIXTRA SUBQ SCH (09:50)
[2019-02-22] MEDS: PROTONIX PO SCH (09:50)
[2019-02-22] MEDS: FOLIC ACID 1 MG in NS 50 ML IV SCH (12:48)
[2019-02-22] MEDS ORDERED: TYLENOL PO PRN (12:51)
--- NOTE | 2019-02-22 13:44 | HEMO/ONC PROGRESS NOTE ---
DATE: 02/22/2019 SUBJECTIVE: Ms. Barclay is lying in bed this morning. She appears more comfortable than yesterday. She continues to have symptoms of dehydration, such as dry mouth, skin. She states that she feels a little bit better than yesterday. She states that her urine is still very dark, and she has very little appetite. Complains of mid back pain. She is attempting to drink protein drinks and water. OBJECTIVE: Vital Signs: Temperature 98.1 degrees, pulse rate 76, respiratory rate 16, blood pressure 140/79, O2 saturation 99% on nasal cannula at 2 L. She is in 0/10 pain. General: On physical examination, this is a chronically ill-appearing female, but does not appear well, but in no acute distress. HEENT: Sclerae is anicteric. PERRLA. Oral mucosa is dry. Cardiovascular: Normal S1, S2. Heart rate and rhythm are regular. Respiratory: Respiratory effort is normal. Lung sounds are clear to auscultation. Gastrointestinal: Abdomen is soft, diffuse tenderness noted. Bowel sounds are present. Skin: No petechiae, ecchymosis, or rashes noted. Skin is dry. Neurological: Awake, alert and oriented x3. No focal motor deficits. Psychiatric: Patient has depressed affect. LABORATORY: WBC 2.0, hemoglobin 9.2, hematocrit 27.3, platelet count 113,000,. ANC 1.26. Sodium 130, creatinine 1.1, calcium 10.2, vitamin B 12 284, folate 11.2. ASSESSMENT AND PLAN: 1. Pneumonia and urinary tract infection. Continue to treat the patient per medical management. 2. Small cell lung carcinoma, currently of immunotherapy. Her immunotherapy is on hold due to immune-mediated colitis. Ct scan done needs to be compared to last PET scan done 2-3 months ago. 3. Dehydration and acute kidney injury. Continue to replete the patient per protocol. Improving her hydration status should certainly make her feel better. 4. Hypercalcemia: with hydration calcium has come down. We will continue to monitor. 5. Macrocytic anemia. The patient is B 12 and folate deficient. We will replete. We will continue to monitor. 6. Pericardial effusion: Check ECHO. 7. Pleural effusion: May need to tap if she becomes symptomatic. Dictated by WINDY Seth for Yefri Jaffe MD cc: Yefri Jaffe MD MTDD
[2019-02-22] MEDS: NS 1,000 ML IV SCH (15:39)
[2019-02-22] MEDS: ZOSYN 3.375 GM in NS 50 ML IV SCH ×2 (15:39→21:11)
--- NOTE | 2019-02-22 15:39 | PROGRESS NOTE ---
DATE: 02/22/2019 SUBJECTIVE: Patient has no issues except she is in pain, constantly in pain; her lower back is hurting. It looks like she has had some nausea, vomiting. OBJECTIVE: Vital signs: Blood pressure is 137/95, heart rate of 85, respiratory rate 18, temperature 97.9 degrees, 98% on 2 L. Cardiovascular: Regular rate and rhythm. Pulmonary: Bilateral breath sounds. Clear to auscultation. GI: Soft, nontender, nondistended. Bowel sounds are positive. LABORATORY: White count is 2, hemoglobin and hematocrit 9 and 27, platelets 113,000. Creatinine 1.1, sodium 130, folate 7.2. PROBLEM LIST: 1. Pneumonia. The adenopathy is worse. It is not clear this is pneumonia at all. She has a loculated pleural effusion. So Surgery, Pulmonary, and Hematology/Oncology is involved. We will place her on postobstructive coverage. I am going to switch her to Zosyn. We will continue to monitor. She has a pretty decent pericardial effusion too. So we will continue to monitor closely. 2. Small-cell cancer. I think a lot of this has to do with that. We will defer to Dr. Jaffe about other treatment requirements, appreciate. cc: Brando Macario MD
[2019-02-22] MEDS: PERCOCET-5 PO PRN ×2 (15:48→21:44)
--- NOTE | 2019-02-22 19:45 | GENERAL SURGERY CONSULTATION ---
DATE: 02/22/2019 REQUESTING PHYSICIAN: Brando Macario MD REASON FOR CONSULTATION: Loculated pleural effusion. HISTORY OF PRESENT ILLNESS: A 53-year-old female with a history of small cell lung cancer, followed by Dr. Jaffe. She has currently finished chemo and radiation. She was initially admitted for dehydration and weakness and has developed some degree of shortness of breath and concern for pneumonia. They have worked her up fully and thought there was a loculated pleural effusion. There was also concern on CT scan of a pericardial effusion. I was asked to weigh an opinion. She is currently without much in the way of shortness of breath but does have a little bit. PAST MEDICAL HISTORY: Includes: 1. Small cell lung cancer status post chemoradiation. 2. Nausea and vomiting. 3. Hypertension. 4. Anxiety. 5. Diabetes mellitus type 2. 6. Chronic back pain. 7. Restless legs syndrome. PAST SURGICAL HISTORY: Includes: 1. Cervical fusion of the neck. 2. Abdominoplasty. 3. Cholecystectomy. 4. Tubal ligation. 5. Lung biopsy. 6. EGD. 7. Colonoscopy. 8. Port placement. SOCIAL HISTORY: Former smoker. FAMILY HISTORY: Positive for diabetes and mesothelioma. ALLERGIES: Latex. HOME MEDICATIONS: Full list reviewed and MAR reviewed. REVIEW OF SYSTEMS: A full 14 systems were reviewed and negative except those specified in HPI. PHYSICAL EXAMINATION: Vital Signs: Patient is currently afebrile. Her vital signs are stable. General exam: No acute distress. HEENT: Normocephalic, atraumatic. Pupils equal, round, reactive to light. Mucous membranes moist. Oropharynx benign. Neck: Supple. Trachea midline. Cardiovascular: Regular rate and rhythm. Lungs: No increased labored breathing. Abdomen: Soft, nontender, nondistended. Extremities: Moves all extremities. Neurologic: Grossly intact. Skin: No signs of jaundice. Vascular: All extremities perfused. LABORATORY DATA: White blood cell count is 12, hematocrit is 27, platelet count 133,000. Remainder of labs reviewed. IMAGING: Reviewed. 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 1. Pericardial effusion. At this time, agree with echocardiogram to evaluate the hemodynamic consequences of this pericardial effusion. We would like to manage that first and see if there are any issues with the heart. 2. Pleural effusion. At this time, she does not seem symptomatic but may need something like a PleurX catheter if it is malignant. We will continue to follow. I will update Dr. Felix who has seen her previously. cc: Charly Padilla MD
[2019-02-23] MEDS: ZOSYN 3.375 GM in NS 50 ML IV SCH ×4 (02:31→21:33)
[2019-02-23] MEDS: DUONEB (A & A) INH SCH ×4 (03:58→22:56)
[2019-02-23] MEDS: HUMALOG SUBQ SCH ×4 (06:07→21:34)
[2019-02-23] MEDS: NS 1,000 ML IV SCH ×2 (06:09→21:33)
[2019-02-23] MEDS: PERCOCET-5 PO PRN (06:28)
[2019-02-23] MEDS: PROTONIX PO SCH (06:28)
--- NOTE | 2019-02-23 06:37 | GENERAL SURGERY PROGRESS NOTE ---
DATE: 02/23/2019 SUBJECTIVE: Patient is still having some degree of shortness of breath, but not terrible. OBJECTIVE: Vital Signs: Patient is currently afebrile. Her vital signs are stable. General: No acute distress. Resting comfortably. HEENT: Normocephalic, atraumatic. Pupils equal, round, reactive to light. Mucous membranes moist. Oropharynx benign. Neck: Supple. Trachea midline. Cardiovascular: Regular rate and rhythm. Lungs: Grossly clear. Abdomen: Soft, nontender, nondistended. Extremities: Moves all extremities. Neurologic: Grossly intact. Skin: No signs of jaundice. Vascular: All extremities perfused. LABORATORY: None this morning as of yet. ASSESSMENT AND PLAN: A 53-year-old female with pleural effusion and pericardial effusion. Effusion. At this time, will recommend following up with echocardiogram to see how physiologically important this pericardial effusion is first. Once we have done that, would consider placement of a chest tube or some kind of drainage device to drain the pleural effusion. I will talk with Dr. Felix who will probably take over her care since he has seen her before. cc: Charly Padilla MD
[2019-02-23 07:26] LABS: EOS# 0.02 X1000 (0.0-0.7); EOS% 1.1 % (0.0-10.0); HEMATOCRIT 25.8 % (37.0-47.0); HEMOGLOBIN 8.8 g/dL (12.0-16.0); IMM GRAN# 0.02 X1000 (0.0-0.04); IMM GRAN% 1.1 % (0.0-0.5); LYMPH# 0.43 X1000 (1.2-3.4); LYMPH% 24.4 % (20.5-51.1); MCH 35.8 PG (27-31); MCHC 34.1 g/dL (33-37); MCV 104.9 FL (81-99); MONO# 0.14 X1000 (0.11-0.59); MPV 8.5 FL (7.4-10.4); NEUT# 1.15 X1000 (1.4-6.5); NEUT% 65.4 % (42.2-75.2); PLT 106 X1000 (130-400); RBC 2.46 XMIL (4.2-5.4); RDW 14.8 % (11.5-14.5); WBC 1.76 X1000 (4.8-10.8)
[2019-02-23 07:43] LABS: CALCIUM 10.2 mg/dL (8.8-10.2); CREATININE 1.1 mg/dL (0.5-0.9); POTASSIUM 3.4 mmol/L (3.5-5.1)
[2019-02-23] MEDS: MIRALAX PO SCH (09:03)
[2019-02-23] MEDS: VITAMIN B-12 SL SCH (09:04)
[2019-02-23] MEDS: ZOFRAN ODT PO SCH ×2 (09:04→21:32)
[2019-02-23] MEDS: CARAFATE PO SCH ×4 (09:04→21:32)
[2019-02-23] MEDS: ZYRTEC PO SCH (09:04)
[2019-02-23] MEDS: CULTURELLE PO SCH ×2 (09:04→21:32)
--- NOTE | 2019-02-23 09:04 | PROGRESS NOTE ---
DATE: 02/23/2019 SUBJECTIVE: Patient denies having any acute complaints this morning, although she did have some nausea last night for which she requested Zofran. OBJECTIVE: Vital Signs: Temperature 98.4 degrees, pulse 86 per minute, respiratory rate 12 per minute, blood pressure 192/66, pulse oximetry 97% on room air. General: Patient is alert and oriented x3. She does not appear to be in any acute distress. Cardiovascular System: First and second heart sounds are audible without murmurs or gallops. Respiratory System: No respiratory distress noted. Bilateral lung air entry is good without rales or rhonchi. Gastrointestinal: Abdomen is soft and nondistended. Normal bowel sounds are present. DIAGNOSTIC DATA: CBC shows pancytopenia with WBC count of 1.76, hemoglobin 8.8, hematocrit 25.8, and platelet count 106,000. Absolute neutrophil count was found to be 1.15. Chemistry shows sodium level of 132, potassium 3.4, chloride 97, CO2 20, creatinine 1.1, and glucose level of 91. IMPRESSION: 1. Small cell lung cancer. 2. Pneumonia. 3. Urinary tract infection. 4. Type 2 diabetes mellitus. 5. Loculated pleural effusion. 6. Pericardial effusion. PLAN: The patient had an echocardiogram done this morning to assess pericardial effusion. She also has loculated pleural effusion which could be malignant and for which General Surgery has been consulted. She is currently being followed by Oncology along with Pulmonary Medicine and General Surgery. We are going to continue with Zosyn intravenously along with supportive care. Further recommendations will be as per Oncology and further hospital course. cc: Fabian Jones MD
[2019-02-23] MEDS: ZOLOFT PO SCH (09:05)
[2019-02-23] MEDS: ARIXTRA SUBQ SCH (09:05)
[2019-02-23 10:03] LABS: INR 1.13; PROTIME 14.7 Seconds (11.0-16.0)
[2019-02-23 10:04] LABS: PTT 40.2 Seconds (22.3-41.8)
[2019-02-23] MEDS: FOLIC ACID 1 MG in NS 50 ML IV SCH (11:17)
--- NOTE | 2019-02-23 13:06 | HEMO/ONC PROGRESS NOTE ---
DATE: 02/23/2019 SUBJECTIVE: Ms. Barclay is lying in bed this morning while she is undergoing an echocardiogram. She appears comfortable; however, she still admits to feeling miserable. She still has a dry mouth and very little appetite. She has mid back pain, but she is attempting to drink protein shakes as necessary. OBJECTIVE: Vital Signs: Temperature 97.8 degrees, pulse rate 84, respiratory rate 18, blood pressure 109/73, O2 saturation 98% on nasal cannula at 2 L. She is in 0/10 pain. PHYSICAL EXAMINATION: General: Chronically ill-appearing female. She does not appear to feel well. HEENT: Sclerae is anicteric. PERRLA. Oral mucosa is dry. Cardiovascular: Normal S1, S2. Heart rate and rhythm is regular. Respiratory: Respiratory effort is normal. Lung sounds are clear to auscultation. Gastrointestinal: Abdomen is soft. Mild diffuse tenderness noted. Bowel sounds are present. Skin: No petechiae or ecchymosis or rashes noted. Skin is very dry. Neurological: Awake, alert, oriented x3. No focal motor deficits noted. Psychiatric: The patient is clearly depressed. Lymphatics: There are supraclavicular nodes noted. They are tender, movable and soft. LABORATORY: WBCs 1.76, hemoglobin 8.8, hematocrit 25.8, platelet count 106,000. ANC 1.15. Sodium 132, potassium 3.4, creatinine 1.1. ASSESSMENT/PLAN: 1. Pneumonia and urinary tract infection. The patient is being treated per medical management. 2. Small cell lung carcinoma. The patient's immunotherapy has been on hold since December due to immune mediated colitis and poor performance status. We have requested radiology to compare recent CT scan to her latest PET scan. 3. Dehydration and acute kidney injury. Continue to replete the patient per protocol. 4. Hypercalcemia. This has resolved. We will continue to monitor. 5. Microcytic anemia. The patient's B12 and folate were deficient. We have repleted those. We will run a full anemia profile on the patient today due to worsening anemia. 6. Pericardial effusion. The patient had an echocardiogram this morning. We are awaiting results. 7. Pleural effusion. We may need to tap if the patient comes even more symptomatic. Surgery has been consulted. 8. Pancytopenia. We are aware of the patient's neutropenia. We are continuing to watch closely. We may have to utilize Neupogen next week. Dictated by WINDY Seth for Yefri Jaffe MD cc: Yefri Jaffe MD [facility]
[2019-02-23 13:13] LABS: IRON SATURATION 29 %; TIBC 212 ug/dL; TOTAL IRON 61 ug/dL (49-151); UNBOUND IRON 151 ug/dL (112-346)
--- NOTE | 2019-02-23 19:05 | ECHO REPORT ---
ORDER DATE: 02/22/2019 MEASUREMENTS: Septal thickness 1.0, left ventricular internal diameter diastole 3.4, posterior wall thickness 0.9, aortic root 3.4, left atrium 3.1. SUMMARY: 1. Technically difficult study. 2. Aortic valve is trileaflet and opens normally on 2-dimensional images. Peak gradient across the aortic valve is less than 10 mmHg. Mitral, tricuspid, and pulmonic valves are without evidence of structural abnormality with trace tricuspid regurgitation and trace pulmonic insufficiency. The aortic root is normal in size. 3. Normal left ventricular dimensions demonstrated. Estimated left ventricular ejection fraction appears to be at least 65%. No regional wall motion abnormalities are evident. Left atrium, right atrium, right ventricle are normal size with normal right ventricular systolic function. 4. Small pericardial effusion demonstrated without echocardiographic indicators of hemodynamic impact. 5. Left pleural effusion. 6. Inferior vena cava not well demonstrated. cc: Christian Urbano MD
--- NOTE | 2019-02-23 19:43 | GENERAL SURGERY PROGRESS NOTE ---
DATE: 02/23/2019 SUBJECTIVE: The patient continues to feel weak overall, but no acute changes today. She reports to me that she has been feeling very weak with some dizziness, poor appetite, poor oral intake and nausea for some time now, and these were the symptoms that prompted her to come to the emergency room to get evaluated. She does admit to some shortness of breath, but she describes it as mild. She has some mild occasional left-sided chest pain. OBJECTIVE: Vital Signs: She is afebrile. Vital signs are stable. General: She is awake, alert, oriented x3. No acute distress. Respiratory: There is no increased work of breathing. She does have some decreased breath sounds in the left base. Cardiovascular: Regular rate and rhythm. LABORATORY: White blood cell count 1.8, hemoglobin 8.8, hematocrit 25.8. Electrolytes reviewed, unremarkable. IMAGING: Her chest CT was examined and shows a pericardial effusion, and some loculated pleural effusion on the left with significant mediastinal and supraclavicular adenopathy and atelectatic and fibrotic changes in the lungs. ASSESSMENT AND PLAN: A 53-year-old female with deconditioning, weakness, nausea in the setting of small cell lung cancer. She also has a left pleural effusion and pericardial effusion. We are awaiting the results of the echocardiogram. Clinically, she does not appear to be in significant distress or physiologic compromise. I would not recommend drainage of either at this time. We will follow along and monitor her progress and follow up the echocardiogram results. If her pleural effusion gets significantly worse and symptomatic, then we would need to drain that. cc: Alexis Felix MD
[2019-02-24] MEDS: DUONEB (A & A) INH SCH ×4 (03:29→22:13)
[2019-02-24] MEDS: ZOSYN 3.375 GM in NS 50 ML IV SCH ×4 (03:37→22:21)
[2019-02-24] MEDS: HUMALOG SUBQ SCH ×4 (06:24→22:31)
[2019-02-24] MEDS: PROTONIX PO SCH (06:58)
[2019-02-24 09:21] LABS: BASO# 0.01 X1000 (0.0-0.2); BASO% 0.5 % (0.0-0.8); EOS# 0.03 X1000 (0.0-0.7); EOS% 1.6 % (0.0-10.0); HEMATOCRIT 27.8 % (37.0-47.0); HEMOGLOBIN 9.5 g/dL (12.0-16.0); IMM GRAN# 0.04 X1000 (0.0-0.04); IMM GRAN% 2.1 % (0.0-0.5); LYMPH# 0.61 X1000 (1.2-3.4); LYMPH% 31.9 % (20.5-51.1); MCHC 34.2 g/dL (33-37); MCV 105.3 FL (81-99); MONO# 0.16 X1000 (0.11-0.59); MONO% 8.4 % (1.7-9.3); NEUT# 1.06 X1000 (1.4-6.5); NEUT% 55.5 % (42.2-75.2); PLT 104 X1000 (130-400); RBC 2.64 XMIL (4.2-5.4); RDW 14.7 % (11.5-14.5); WBC 1.91 X1000 (4.8-10.8)
[2019-02-24] MEDS: MIRALAX PO SCH (09:31)
[2019-02-24] MEDS: ZYRTEC PO SCH (09:32)
[2019-02-24] MEDS: ZOFRAN ODT PO SCH ×2 (09:32→22:22)
[2019-02-24] MEDS: ZOLOFT PO SCH (09:33)
[2019-02-24] MEDS: VITAMIN B-12 SL SCH (09:33)
[2019-02-24] MEDS: CARAFATE PO SCH ×4 (09:33→22:22)
[2019-02-24] MEDS: CULTURELLE PO SCH ×2 (09:33→22:22)
[2019-02-24 09:35] LABS: ALBUMIN 3.5 g/dL (3.5-5.0); CALCIUM 10.6 mg/dL (8.8-10.2); CREATININE 1.1 mg/dL (0.5-0.9); POTASSIUM 3.4 mmol/L (3.5-5.1); TOTAL PROTEIN 7.1 g/dL (6.3-8.3)
[2019-02-24 09:54] LABS: ANISOCYTOSIS 2+; EOS 2 % (1-10); LYMPHS 34 % (21-51); MONO 8 % (1-9); POLYCHROM 1+; SEGS 55 % (42-75)
--- NOTE | 2019-02-24 09:59 | PROGRESS NOTE ---
DATE: 02/24/2019 SUBJECTIVE: Patient states that she feels okay. She has no new complaints. Denies any chest pains or shortness of breath. PHYSICAL EXAMINATION: Vital Signs: Temperature 97.9 degrees, pulse 104, respiratory 18, blood pressure 104/71. General: Patient is pleasant. She is in no distress. HEENT: Normocephalic. Neck: Supple. Cardiovascular: Regular rate. Chest: Clear. Abdomen: Soft. Extremities: Moves all extremities. ASSESSMENT: 1. Small-cell lung cancer. 2. Pancytopenia. 3. Pneumonia. 4. Urinary tract infection. 5. Adult failure to thrive. 6. Left pleural effusion. 7. Small pericardial effusion. 8. Type 2 diabetes. PLAN: We will continue patient in the hospital, continue Zosyn, continue symptomatic care. Further orders as needed. cc: Mushtaq Ramírez MD
[2019-02-24] MEDS: ARIXTRA SUBQ SCH (10:30)
[2019-02-24] MEDS: FOLIC ACID 1 MG in NS 50 ML IV SCH (10:30)
[2019-02-24] MEDS: NS 1,000 ML IV SCH ×2 (13:33→22:21)
--- NOTE | 2019-02-24 14:07 | PULMONOLOGY CONSULTATION ---
DATE: 02/24/2019 CHIEF COMPLAINT: Weakness. HISTORY OF PRESENT ILLNESS: This is a 53-year-old female with a history of small cell lung cancer, followed by Dr. Jaffe. She has completed chemotherapy and radiation therapy. Recent chest CT revealed worsened adenopathy. The possibilities of postobstructive pneumonia, particularly within the left lower lobe, pericardial effusion and pleural effusion, both of which may be malignant. Also some atelectasis or fibrotic changes in her right lower lobe. PAST MEDICAL HISTORY: 1. Small cell lung cancer, status post chemotherapy and radiation, receiving some aftercare medications. 2. Nausea, vomiting, diarrhea. 3. Hypertension. 4. Anxiety. 5. Diabetes mellitus type 2. 6. Chronic back pain. 7. Restless leg syndrome. PAST SURGICAL HISTORY: 1. Surgical fusion of the neck. 2. Tummy tuck in 2015. 3. Cholecystectomy. 4. Lung biopsy in 06/2018. 5. Tubal ligation in 1990. 6. EGD and colonoscopy. SOCIAL HISTORY: Former smoker, quit in 2015. No alcohol or illicit drug use. FAMILY HISTORY: Mother has diabetes mellitus type 2. Father with mesothelioma of the lungs. ALLERGIES: Latex. HOME MEDICATIONS: Please see home reconciliation list. REVIEW OF SYSTEMS: A 10-point review of systems was obtained, and the pertinent is listed within the HPI, otherwise noncontributory. PHYSICAL EXAMINATION: Vital signs: Temperature 98.6, pulse 90, respiratory rate 14, blood pressure 113/63, O2 saturation is 95% on room air. General: This is a 53-year-old female resting quietly in bed, in no acute distress at the present time. HEENT: Head is atraumatic and normocephalic. Trachea midline. PERRLA noted. Respiratory: No rhonchi. No rales. No labored breathing. Mild expiratory wheezes. Cardiac: S1 and S2 auscultated. No gallops, murmurs or rubs. Abdomen: Soft, nondistended and nontender. Bowel sounds present in all 4 quadrants. Extremities: No cyanosis, clubbing or edema. Plus 2 pedal pulses bilaterally. Neurologic: Alert and oriented x3. DIAGNOSTIC DATA: As mentioned in the HPI. LABORATORY DATA: white blood cells 1.91, red blood cells 10.64, hemoglobin 9.5, hematocrit 27.8, platelet count 104. Sodium 131, potassium 3.4, chloride 97, carbon dioxide 21, BUN is 6, creatinine 1.1, calcium 10.6, AST is 69, ALT is 30. ASSESSMENT AND PLAN: 1. Pneumonia. Continue IV antibiotics and bronchodilators. We will continue to monitor with chest x-ray. 2. History of small cell lung cancer. Dr. Jaffe following. 3. Diabetes mellitus type 2. Continue sliding scale insulin with fingerstick blood sugars. 4. Continue GI prophylaxis with Protonix 40 mg p.o. daily. Thank you for the courtesy of this consult. Dictated by WINDY Bond for Nicolas Collins MD cc: WINDY Bond MD [facility]
--- NOTE | 2019-02-24 15:02 | GENERAL SURGERY PROGRESS NOTE ---
DATE: 02/24/2019 SUBJECTIVE: Ms. Barclay is breathing comfortably. On exam, she has diminished breath sounds on the left. Her vital signs were fine. Respiratory rate 14, O2 saturation is 96 on room air. PLAN: The plan will be to repeat her chest x-ray tomorrow. cc: Sanchez Garrison MD
[2019-02-25] MEDS: ZOSYN 3.375 GM in NS 50 ML IV SCH ×4 (02:39→21:55)
[2019-02-25] MEDS: DUONEB (A & A) INH SCH ×4 (03:21→22:26)
[2019-02-25] MEDS: PROTONIX PO SCH (06:32)
[2019-02-25] MEDS: HUMALOG SUBQ SCH ×4 (06:33→22:00)
[2019-02-25 08:40] LABS: BASO# 0.01 X1000 (0.0-0.2); BASO% 0.5 % (0.0-0.8); EOS# 0.03 X1000 (0.0-0.7); EOS% 1.4 % (0.0-10.0); HEMATOCRIT 28.1 % (37.0-47.0); HEMOGLOBIN 9.5 g/dL (12.0-16.0); IMM GRAN# 0.06 X1000 (0.0-0.04); IMM GRAN% 2.9 % (0.0-0.5); LYMPH# 0.66 X1000 (1.2-3.4); LYMPH% 31.7 % (20.5-51.1); MCH 35.6 PG (27-31); MCHC 33.8 g/dL (33-37); MCV 105.2 FL (81-99); MONO# 0.16 X1000 (0.11-0.59); MONO% 7.7 % (1.7-9.3); MPV 8.3 FL (7.4-10.4); NEUT# 1.16 X1000 (1.4-6.5); NEUT% 55.8 % (42.2-75.2); PLT 111 X1000 (130-400); RBC 2.67 XMIL (4.2-5.4); RDW 14.9 % (11.5-14.5); WBC 2.08 X1000 (4.8-10.8)
[2019-02-25 08:57] LABS: CALCIUM 11.2 mg/dL (8.8-10.2); POTASSIUM 3.3 mmol/L (3.5-5.1)
--- NOTE | 2019-02-25 09:01 | Diag Imaging Result Doc PS360 ---
EXAM: CHEST-1 VIEW - 02/25/2019 HISTORY: SOB TECHNIQUE: Portable chest one view COMPARISON: 02/21/2019 FINDINGS: There is a large left pleural effusion which is increased. The right lung appears clear. There is no right pleural effusion identified. There is no pneumothorax identified. Central venous catheter remains in place. IMPRESSION: Large left pleural effusion which has increased. Electronically signed by Nadir Faria 02/25/2019 8:58 AM
[2019-02-25 09:11] LABS: EOS 2 % (1-10); LYMPHS 30 % (21-51); MONO 8 % (1-9); NRBC 1 % (0-0); SEGS 59 % (42-75)
[2019-02-25 09:12] LABS: ANISOCYTOSIS 1+; POIKILOCYTOSIS 1+; POLYCHROM OCCASIONAL; TARGET CELLS 1+
[2019-02-25] MEDS: ZYRTEC PO SCH (09:36)
[2019-02-25] MEDS: CARAFATE PO SCH ×4 (09:36→21:56)
[2019-02-25] MEDS: MIRALAX PO SCH (09:36)
[2019-02-25] MEDS: VITAMIN B-12 SL SCH (09:36)
[2019-02-25] MEDS: CULTURELLE PO SCH ×2 (09:36→21:56)
[2019-02-25] MEDS: NS 1,000 ML IV SCH ×2 (09:36→21:55)
[2019-02-25] MEDS: ZOLOFT PO SCH (09:37)
[2019-02-25] MEDS: ARIXTRA SUBQ SCH (09:37)
[2019-02-25] MEDS: ZOFRAN ODT PO SCH ×2 (09:37→21:55)
--- NOTE | 2019-02-25 10:07 | GENERAL SURGERY PROGRESS NOTE ---
DATE: 02/25/2019 Ms. Barclay does have diminished breath sounds on the left. However, she really does not complain of shortness of breath. Her chest x-ray suggested increased effusion on the left. We will go ahead and get a CAT scan of her chest to actually evaluate how much fluid she has. cc: Sanchez Garrison MD
[2019-02-25] MEDS: FOLIC ACID 1 MG in NS 50 ML IV SCH (11:49)
--- NOTE | 2019-02-25 15:52 | Diag Imaging Result Doc PS360 ---
EXAM: CT THORAX W/CONTRAST - 02/25/2019 HISTORY: increasing left pleural effusion TECHNIQUE: CT thorax with intravenous contrast COMPARISON: 02/21/2019 CT thorax without contrast FINDINGS: There is a moderate to large left pleural effusion which is increased. There is an approximately 8 x 6.6 cm mass which involves the mediastinum and apparently the adjacent the left upper lobe lung. There are additional substantial enlarged mediastinal lymph nodes. There is partial atelectasis of the left lung. There is a small right pleural effusion. The right lung appears essentially clear. There is no pneumothorax identified. There is a pericardial effusion similar to prior. IMPRESSION: Large mass which involves the mediastinum and adjacent left upper lobe lung. Substantial additional mediastinal adenopathy. Moderate to large left pleural effusion which is increased. Partial atelectasis of right lung. Small right pleural effusion. Pericardial effusion similar to prior. This exam was performed using automated exposure control, adjustment of mA or kV according to patient size, and/or use of iterative reconstruction technique. Electronically signed by Nadir Faria 02/25/2019 3:49 PM
--- NOTE | 2019-02-25 16:05 | PROGRESS NOTE ---
DATE: 02/25/2019 INTERVAL HISTORY: Patient pretty comfortable at rest, but still with dyspnea on exertion and some left-sided pleuritic pain. Some nausea but no further vomiting. No acute events overnight. No other new complaints. REVIEW OF SYSTEMS: Twelve point review of systems negative except as per interval history. LABS: WBC 2.0, hemoglobin 9.5, hematocrit 28.1, platelets 111,000. Sodium 134, potassium 3.3, bicarb 21, BUN 6, creatinine 1.0. VITAL SIGNS: T-max 98.5 degrees, pulse 75, respirations 16, blood pressure 117/82, O2 saturation 95% on room air. PHYSICAL EXAMINATION: General: No acute distress. Chronically ill appearing. Vital signs: As above. HEENT: Normocephalic, atraumatic. Moist mucous membranes. Cardiovascular: Regular rate and rhythm. Pulmonary: Decreased breath sounds on the left. Some scattered rhonchi on the right, but largely clear on that side. No wheezing. Reasonable air entry, aside from left lower lung. Abdomen: Soft, nontender, nondistended. Bowel sounds positive. Extremities: Peripheral pulses intact. No clubbing or cyanosis. Neurologic: Cranial nerves grossly intact. Mild global weakness but no focal deficits identified. Psychiatric: Normal mood and affect. Awake, alert, oriented x3. Skin: No new rashes or lesions identified. ASSESSMENT AND PLAN: 1. Dehydration and acute kidney injury, nausea, vomiting. Kidney function slightly improved from admission. Has been as low as 0.9 in the last couple of months. Down to 1.0 today. Continue IV fluids and monitor. Still some nausea but no further vomiting. 2. Dyspnea on exertion and pleuritic pain. Multifactorial with small-cell lung cancer, pleural effusion, and possible pneumonia. On antibiotics with Zosyn for the possible pneumonia. Has an increasing left pleural effusion on x-ray. We will likely get CT to better evaluate and see if there is enough to likely need thoracentesis. Effusion likely malignant. Continue monitoring but if the patient does not improve with antibiotics and possible thoracentesis, then may be primarily due to her underlying malignancy and may be difficult to treat. 3. Urinary tract infection. Adequately treated at this point. 4. Pericardial effusion, small and does not appear to be hemodynamically significant. Will likely not need further treatment. 5. Acute kidney injury versus chronic kidney disease 3. Patient with admission creatinine 1.3. Down to 1.0 today. Has been as low as 0.9 recently. Continue fluids and monitor. 6. Hypokalemia. Potassium still low. We will give some additional repletion and monitor. 7. Hyponatremia. Slightly improved. Quite mild. Monitor. 8. Neutropenia. Patient in moderate neutropenia range. Afebrile. Slightly improved today. We will continue to monitor blood counts. 9. Chronic pain. Continue home oxycodone.
[2019-02-25] MEDS: PERCOCET-5 PO PRN (23:10)
[2019-02-26] MEDS: DUONEB (A & A) INH SCH ×5 (03:09→22:58)
[2019-02-26] MEDS: ZOSYN 3.375 GM in NS 50 ML IV SCH ×4 (03:40→21:09)
[2019-02-26] MEDS: HUMALOG SUBQ SCH ×3 (07:06→16:40)
[2019-02-26 07:52] LABS: AGAP 16; BUN 6 mg/dL (8-22); CALCIUM 11.2 mg/dL (8.8-10.2); CHLORIDE 99 mmol/L (98-107); COSMO 267; CREATININE 0.8 mg/dL (0.5-0.9); ESTIMATED GFR > 60; GLUCOSE 77 mg/dL (70-104); POTASSIUM 3.5 mmol/L (3.5-5.1); SODIUM 135 mmol/L (136-145); TCO2 20 mmol/L (25-35)
[2019-02-26 08:21] LABS: BASO# 0.04 X1000 (0.0-0.2); BASO% 1.7 % (0.0-0.8); EOS# 0.04 X1000 (0.0-0.7); EOS% 1.7 % (0.0-10.0); HEMATOCRIT 29.1 % (37.0-47.0); HEMOGLOBIN 9.8 g/dL (12.0-16.0); IMM GRAN% 4.4 % (0.0-0.5); LYMPH# 0.83 X1000 (1.2-3.4); LYMPH% 36.2 % (20.5-51.1); MCH 36.8 PG (27-31); MCHC 33.7 g/dL (33-37); MCV 109.4 FL (81-99); MONO# 0.24 X1000 (0.11-0.59); MONO% 10.5 % (1.7-9.3); MPV 8.9 FL (7.4-10.4); NEUT# 1.04 X1000 (1.4-6.5); NEUT% 45.5 % (42.2-75.2); PLT 104 X1000 (130-400); RBC 2.66 XMIL (4.2-5.4); RDW 15.2 % (11.5-14.5); WBC 2.29 X1000 (4.8-10.8)
[2019-02-26 08:39] LABS: BANDS 8 % (0-1); EOS 2 % (1-10); LYMPHS 42 % (21-51); MONO 6 % (1-9); NRBC 1 % (0-0); POIKILOCYTOSIS 1+; SEGS 42 % (42-75)
--- NOTE | 2019-02-26 09:52 | Diag Imaging Result Doc PS360 ---
EXAM: US CHEST W/O MEDIASTINUM(LTD) HISTORY: Therapeutic and diagnositc TECHNIQUE: Ultrasound chest COMPARISON: None. FINDINGS: An attempt was made to localize pleural fluid seen on the recent chest CT. Although the recent CT reveals a moderate-sized left pleural effusion, there was no adequate pocket available for drainage on the ultrasound performed today. Electronically signed by Renny Reyna 02/26/2019 9:50 AM
[2019-02-26] MEDS: MARINOL PO SCH (12:34)
[2019-02-26] MEDS: ZYRTEC PO SCH (12:34)
[2019-02-26] MEDS: CARAFATE PO SCH ×4 (12:34→21:09)
[2019-02-26] MEDS: ZOLOFT PO SCH (12:35)
[2019-02-26] MEDS: ZOFRAN ODT PO SCH ×3 (12:35→21:08)
[2019-02-26] MEDS: VITAMIN B-12 SL SCH (12:38)
[2019-02-26] MEDS: PROTONIX PO SCH (12:38)
[2019-02-26] MEDS: CULTURELLE PO SCH ×2 (12:39→21:09)
[2019-02-26] MEDS: MIRALAX PO SCH (12:39)
--- NOTE | 2019-02-26 12:59 | GENERAL SURGERY PROGRESS NOTE ---
DATE: 02/26/2019 SUBJECTIVE: The patient reports some shortness of breath, but not severe. OBJECTIVE: Vital Signs: She is afebrile. Vital signs are stable. General: She is awake, alert, oriented x3. No acute distress. CV: Regular rate and rhythm. Respiratory: Decreased breath sounds in the left base, but no increased work of breathing. LABORATORY DATA: Reviewed. IMAGING: Repeat CT scan shows increased left pleural effusion with a large mediastinal mass and left upper lung mass. Echocardiogram results show a nonphysiologic small pericardial effusion. ASSESSMENT AND PLAN: A 53-year-old female with known small-cell lung cancer, left pleural effusion, and pericardial effusion. The pleural effusion was not amenable to ultrasound-guided drainage. I have talked to Dr. Mercado about a CT-guided drainage. Hopefully, he can achieve that. If not, I am available to attempt chest tube placement, although it would be somewhat of a blind attempt. I discussed this with the patient, and she does prefer the minimally invasive approach if possible. cc: Alexis Felix MD
--- NOTE | 2019-02-26 13:31 | HEMO/ONC PROGRESS NOTE ---
DATE: 02/26/2019 SUBJECTIVE: Ms. Barclay is resting comfortably in bed this morning. She continues to feel very weak and not very good. She states that she does have some shortness of breath that is worse with any exertion. OBJECTIVE: Vital Signs: Temperature 98.2 degrees, pulse rate 94, respiratory rate 16, blood pressure 108/64, O2 saturation 100% on nasal cannula at 2 L. She is in 3/10 pain. General: This is a chronically ill-appearing female in no acute distress. She overall appears not to feel well. HEENT: Sclerae are anicteric. PERRLA. Oral mucosa is dry. Cardiovascular: Normal S1, S2. Heart rate and rhythm is elevated. Respiratory: Respiratory effort is normal. Lungs sounds are diminished on the left side, but clear to auscultation. Gastrointestinal: Abdomen is soft. Bowel sounds are present. Skin: No petechiae, ecchymoses, or rashes noted. Skin is very dry. Neurological: Awake, alert, and oriented. No focal motor deficits noted. Psychiatric: The patient remains to have a depressed affect. Lymphatics: Supraclavicular nodes are noted. They are tender, movable, and soft. LABORATORY DATA: WBCs 2.29, hemoglobin 9.8, hematocrit 29.1, platelet count 104,000. Sodium 135, potassium 3.5, creatinine 0.8, calcium 11.2. PTH intact 52. RADIOLOGY: Chest ultrasound this morning is unable to find an adequate pocket for drainage of localized pleural fluid. Yesterday's chest x-ray: Large left pleural effusion, which has increased. Yesterday's chest CT: Large mass, which involves the mediastinum and adjacent left upper lobe lung. Substantial additional mediastinal adenopathy. [id number] left pleural effusion, which is increased. Partial atelectasis of the right lung. Small right pleural effusion. ASSESSMENT AND PLAN: 1. Pneumonia and urinary tract infection. Both of these seem to be improving. The patient is on antibiotics. Continue medical management. 2. Metastatic small-cell lung cancer. The patient's immunotherapy has been on hold since December due to immune mediated colitis and poor performance status. Restaging scans reveal worsening disease. Dr. Jaffe had an extensive discussion with the patient and her family. She understands her performance status is poor and further therapy is difficult under these circumstances. Will continue discussions daily regarding future plan. 3. Dehydration and acute kidney injury. The patient's creatinine continues to improve. Continue to replete per protocol. 4. Hypercalcemia. The patient's calcium continued to rise over the weekend. Her PTH intact, however, is in normal range. Bone scan is reasonable.We will continue to monitor. 5. Macrocytic anemia. The patient's B12 and folate were deficient. We continued to replete the dose. The patient's iron profile is adequate. We are continuing to monitor the patient's anemia. 6. Pericardial effusion. The patient's echocardiogram shows a small left pleural effusion that does not appear to be hemodynamically significant. 7. Pleural effusion. There was an attempt to drain the fluid per ultrasound today that was unsuccessful. Discussed with Dr. Storey regarding evaluation for pleurex catheter. 8. Pancytopenia. We are aware of the patient's neutropenia. We are continuing to watch closely. We may utilize Neupogen sometime this week. Dictated by WINDY Seth for Yefri Jaffe MD cc: Yefri Jaffe MD [facility]
--- NOTE | 2019-02-26 14:37 | PROGRESS NOTE ---
DATE: 02/26/2019 INTERVAL HISTORY: The patient is approximately stable. Oxygenation remains adequate, but has dyspnea on any exertion. Appetite remains quite poor with extremely poor p.o. intake. The patient was evaluated by Radiology for ultrasound-guided thoracentesis this morning, but they were not successful. No other acute events. No new complaints. REVIEW OF SYSTEMS: A 12-point review of systems is negative, except as per interval history. LABORATORY DATA: WBC 2.2, hemoglobin 9.8, hematocrit 29.1, platelets 104,000, and absolute neutrophil count 1040. IMAGING: CT chest with known large mass involving the mediastinum and adjacent left upper lobe, significant mediastinal adenopathy, and increased aqdizbgz-[id number] left pleural effusion and some atelectasis on the right. OBJECTIVE: Vital Signs: T-max 98.5 degrees, pulse 94, respirations 16, blood pressure 108/64, O2 saturation 95% on room air. General: No acute distress. Chronically ill appearing. HEENT: Normocephalic, atraumatic. Moist mucous membranes. No cervical adenopathy. Cardiovascular: Regular rate and rhythm. No murmurs noted. Pulmonary: Decreased breath sounds at the left base. Scattered rhonchi in the other lung gusman. No wheezing, and otherwise good air entry. Abdomen: Soft, nontender, nondistended. Bowel sounds positive. Extremities: Peripheral pulses intact. No clubbing or cyanosis. Neurologic: Cranial nerves grossly intact. [id number]-pc-[id number] global weakness, but no focal deficits. Psychiatric: Normal mood and affect. Awake, alert, oriented x3. Skin: No new lesions or rashes seen. ASSESSMENT AND PLAN: 1. Dehydration and acute kidney injury. Patient with nausea and vomiting on admission, which is now largely resolved. Kidney function this morning has actually improved somewhat to 0.8, which is likely baseline. Continue fluids until patient taking adequately by mouth. 2. Dyspnea on exertion, multifactorial, with small-cell lung cancer, large pleural effusion on the left, and possible pneumonia. Remains on antibiotics with Zosyn for the possible pneumonia. CT showed increasing left pleural effusion, but Interventional Radiology was not able to drain when they evaluated her this morning. Patient potentially going for CT-guided drainage in the near future. Otherwise, Surgery may consider placing a chest tube to relieve the pleural effusion, likely malignant. 3. Urinary tract infection. Patient adequately treated at this point. 4. Pericardial effusion, small, and does not appear to be hemodynamically significant. 5. Hypokalemia, improved. Continue to monitor, and replete if needed. 6. Hyponatremia, also improved and pretty minimal at this point. No need for further intervention, but will monitor labs. 7. Neutropenia. The patient remains in moderate neutropenia range with modest improvement over the last couple days. Remains afebrile. Continue to monitor, and if it does not continue to improve, then Hematology/Oncology may consider Neupogen administration. 8. Chronic pain. Continue home oxycodone.
--- NOTE | 2019-02-26 14:46 | Diag Imaging Result Doc PS360 ---
EXAM: US THORACENTESIS W/IMAGE GUIDE 02/26/2019 HISTORY: diagnostic/therapeutic TECHNIQUE: Ultrasound-guided left thoracentesis COMMENT: The risks and benefits of the procedure were discussed with the patient including the possibility of bleeding, infection, reaction to lidocaine, pneumothorax, and she agreed to the procedure. Following sterile preparation of the skin laterally on the left and administration 1% lidocaine to the skin and deeper soft tissues, the thoracentesis catheter was placed and subsequently 200 mL of turbid orange fluid was aspirated. IMPRESSION: Successful ultrasound-guided thoracentesis. Electronically signed by Hector Mercado 02/26/2019 2:44 PM
--- NOTE | 2019-02-26 15:00 | Diag Imaging Result Doc PS360 ---
EXAM: CHEST-2 VIEWS HISTORY: POST LEFT THORA TECHNIQUE: Two views COMPARISON: 02/25/2019 FINDINGS: Interval decrease in the left pleural effusion. No pneumothorax. Cardiomegaly remains. There is a left-sided portacatheter. Tiny right effusion. IMPRESSION: No postprocedural pneumothorax. Electronically signed by Renny Reyna 02/26/2019 2:57 PM
[2019-02-26 16:18] LABS: AMYLASE BODY FLUID 24 U/L; GLUCOSE BODY FLUID 83 mg/dL; TOTAL PROT BODY FLUID 4.7 g/dL
[2019-02-26 16:26] LABS: LDH BODY FLUID 804 U/L
[2019-02-26 16:36] LABS: BODY FLUID SOURCE PLEURAL FLUID; PH BODY FLUID 7.5; SPECIMEN PLEURAL FLUID
[2019-02-26 16:37] LABS: MONOS 96 %; POLYS 4 %; WBC BF 1412 /cumm
[2019-02-26] MEDS: FOLIC ACID 1 MG in NS 50 ML IV SCH (16:52)
[2019-02-26] MEDS: NS 1,000 ML IV SCH (16:52)
--- NOTE | 2019-02-26 22:32 | PULMONOLOGY PROGRESS NOTE ---
DATE: 02/26/2019 SUBJECTIVE: The patient is lying in her bed. She has a slight psychomotor retardation to her response. She is without specific complaints. She reports the thoracentesis was painful today. She is not sure of it affected her breathing. OBJECTIVE: Vital Signs: BP 121/70, heart rate 95, respiratory rate 16, oxygen saturation 95%. HEENT: Pupils are equal and reactive. Oropharynx appears clear. Neck: Is supple. Chest: Reveals significantly decreased breath sounds in the left lung base. LABORATORIES: Pleural effusion is exudative in character with a white blood count of 1412, elevated LDH at 804, elevated protein at 4.7. IMPRESSION: A 53-year-old with 1. Small cell lung cancer. 2. Increasing mediastinal adenopathy. 3. Large pleural effusion. 4. Pericardial effusion which does not currently appear to be hemodynamically significant. PLAN: 1. Consider PleurX catheter. 2. Overall prognosis appears guarded. cc: Lewis Ballesteros MD
[2019-02-27] MEDS: ZOSYN 3.375 GM in NS 50 ML IV SCH ×4 (03:27→21:37)
[2019-02-27] MEDS: HUMALOG SUBQ SCH ×3 (03:29→18:53)
[2019-02-27] MEDS: MARINOL PO SCH ×3 (03:29→21:42)
[2019-02-27] MEDS: DUONEB (A & A) INH SCH ×3 (03:43→16:12)
[2019-02-27] MEDS: PERCOCET-5 PO PRN (04:55)
[2019-02-27 07:24] LABS: BASO# 0.03 X1000 (0.0-0.2); BASO% 1.5 % (0.0-0.8); EOS# 0.01 X1000 (0.0-0.7); EOS% 0.5 % (0.0-10.0); HEMATOCRIT 25.7 % (37.0-47.0); HEMOGLOBIN 8.7 g/dL (12.0-16.0); IMM GRAN# 0.08 X1000 (0.0-0.04); LYMPH# 0.67 X1000 (1.2-3.4); LYMPH% 33.2 % (20.5-51.1); MCHC 33.9 g/dL (33-37); MCV 106.2 FL (81-99); MONO# 0.21 X1000 (0.11-0.59); MONO% 10.4 % (1.7-9.3); MPV 8.5 FL (7.4-10.4); NEUT# 1.02 X1000 (1.4-6.5); NEUT% 50.4 % (42.2-75.2); PLT 105 X1000 (130-400); RBC 2.42 XMIL (4.2-5.4); RDW 14.9 % (11.5-14.5); WBC 2.02 X1000 (4.8-10.8)
[2019-02-27 07:46] LABS: AGAP 13; BUN 5 mg/dL (8-22); CALCIUM 9.9 mg/dL (8.8-10.2); CHLORIDE 100 mmol/L (98-107); COSMO 262; CREATININE 0.8 mg/dL (0.5-0.9); ESTIMATED GFR > 60; GLUCOSE 73 mg/dL (70-104); POTASSIUM 2.8 mmol/L (3.5-5.1); SODIUM 133 mmol/L (136-145); TCO2 20 mmol/L (25-35)
[2019-02-27 07:47] LABS: EOS 4 % (1-10); LYMPHS 40 % (21-51); MONO 4 % (1-9); SEGS 44 % (42-75)
[2019-02-27 07:48] LABS: ANISOCYTOSIS 1+; POIKILOCYTOSIS 1+
[2019-02-27] MEDS: ZOLOFT PO SCH (10:19)
[2019-02-27] MEDS: ZYRTEC PO SCH (10:19)
[2019-02-27] MEDS: VITAMIN B-12 SL SCH (10:19)
[2019-02-27] MEDS: ZOFRAN ODT PO SCH ×2 (10:19→21:43)
[2019-02-27] MEDS: FOLIC ACID 1 MG in NS 50 ML IV SCH (10:19)
[2019-02-27] MEDS: MIRALAX PO SCH (10:19)
[2019-02-27] MEDS: CULTURELLE PO SCH ×2 (10:20→21:42)
[2019-02-27] MEDS: PROTONIX PO SCH (10:20)
[2019-02-27] MEDS: CARAFATE PO SCH ×4 (10:21→21:42)
[2019-02-27] MEDS: NS 1,000 ML IV SCH (10:22)
[2019-02-27] MEDS ORDERED: KLOR-CON PO ONE (11:09)
--- NOTE | 2019-02-27 15:01 | Diag Imaging Result Doc PS360 ---
EXAM: BONE SCAN, TOTAL BODY INDICATION: r/o bone mets;hypercalcemia TECHNIQUE: 25.9 mCi of technetium 99 MDP was administered intravenously and images of the whole body were obtained in usual fashion after administration. COMPARISON: No prior nuclear medicine bone scan is available for comparison. FINDINGS: There is a focus of increased uptake involving the posterior aspect of the ninth rib on the left. However, this clearly corresponds to bony callus from an old rib fracture that can be seen on a previous CT dated 02/25/2019. There is vague focal increased uptake involving the proximal shaft of the left femur and the midshaft of the right femur. Although nonspecific, metastatic foci cannot be excluded. There is also possible faint increased activity associated with the L3 vertebra on the anterior view. Note that on a previous PET scan dated 11/21/2018, there is a sclerotic focus making it suspicious for metastatic disease. There is mild increased uptake at both shoulders there is mild increased uptake at the shoulders that is probably degenerative. No other significant uptake in the identified on this study. There is normal soft tissue uptake and normal excretion of radiotracer by the system. IMPRESSION: 1.Vague increased uptake involving both femoral shafts that are nonspecific. However, metastatic foci cannot be excluded. 2.Uptake associated with the posterior ninth rib on the left corresponding to a bony callus from an old rib fracture. 3.Questionable very faint increased uptake associated with the L3 vertebral body. Electronically signed by Hu Carmona 02/27/2019 2:59 PM
[2019-02-27] MEDS ORDERED: DUONEB (A & A) INH PRN (16:14)
--- NOTE | 2019-02-27 16:19 | HEMO/ONC PROGRESS NOTE ---
DATE: 02/27/2019 SUBJECTIVE: Ms. Barclay is asleep this morning. She has snoring respirations. She awakes easily to my voice. She is a bit groggy this morning as she has had some difficulty getting good rest at night. She does continue to remain short of breath with any exertion. She states that she did not feel any relief with yesterday's thoracentesis. She did admit that it was rather painful and she is very sore on that side and has difficulty laying on that side at this time. She continues to not feel very good. OBJECTIVE: Vital signs: Temperature 98.2 degrees, pulse rate 82, respiratory rate 16, blood pressure 100/50, O2 saturation 99% on room air, she is in 7/10 leg pain. General: This is a chronically ill-appearing female in no acute distress however she does not look well. HEENT: Sclerae are anicteric. PERRLA. Oral mucosa remains dry. Cardiovascular: Normal S1, S2. Heart rate and rhythm is regular. Respiratory: Respiratory effort appears normal. There is no pursed lip breathing. Lung sounds remain diminished on the left side but clear to auscultation. Abdomen: Soft. Bowel sounds are present. Skin: No petechiae, ecchymosis or rashes noted. Skin is very dry. Neurological: Awake, alert and oriented x3. She is slow to speak. No focal motor deficits noted otherwise. Psychiatric: The patient remains to have a depressed affect. Lymphatic: Supraclavicular nodes are noted. They are tender, movable and soft. LABORATORY DATA: WBCs are 2.02, hemoglobin 8.7, hematocrit 25.7, platelet count 105,000, ANC 1.02. Sodium 133, potassium 2.8, LDH 973. Pleural fluid has a significant amount of WBCs 1412 and LDH is 804. RADIOLOGY: Bone scan reveals #1 Vague increased uptake involving both femoral shaft that are nonspecific. 2. Uptake associated with the posterior 9th rib on the left corresponding to a bony callus from an old rib fracture. 3. Questionable very faint increased uptake associated with the L3 vertebral body. ASSESSMENT AND PLAN: 1. Urinary tract infection. Patient has been adequately treated. 2. Metastatic small cell lung cancer. Patient's immunotherapy has been on hold since December due to immune mediated colitis and poor performance status. Her repeat staging scans reveal worsening disease. Dr. Jaffe had an extensive discussion with the patient and her family regarding potentially utilizing comfort measures versus further chemotherapy. She wants to continue therapy, however she is not getting stonger. We will continue these conversations daily. 3. Dehydration and acute kidney injury. Her kidney function has improved. The creatinine now remains 0.8. Continue fluids until patient can adequately take p.o. liquids. Her appetite remains poor. 4. Hypercalcemia. Patient's calcium has continued to rise over the weekend. Her PTH intact however is in normal range. We have ordered a bone scan with results as stated above. We will continue to monitor. 5. Macrocytic anemia. Patient's anemia has remained low, we continue to replete her B12 and folate, we will continue to monitor. The patient's iron profile is adequate. 6. Pericardial effusion. The patient's echocardiogram shows a small left pleural effusion that does not appear to be hemodynamically significant, we will continue to monitor . 7. Pleural effusion. The patient had a successful CT guided thoracentesis yesterday which removed approximately 200 mL of turbid orange fluid. Patient states this did not improve her shortness of breath, fluid has high white count and elevated LDH. She did tolerate procedure very well. Discussed with Dr. Felix. he is following along. 8. Neutropenia. We are monitoring the patient's neutropenia closely, we will consider utilizing Neupogen if needed. 9. Persistent Nausea and poor PO intake: Consult GI for consideration/discussion of feeding tube/EGD. Dictated by WINDY Seth for Yefri Jaffe MD cc: Yefri Jaffe MD [facility]
[2019-02-27] MEDS: POTASSIUM CHLORIDE 20 MEQ/SWI 20 MEQ/100 ML IVPB IV SCH ×2 (16:29→22:54)
--- NOTE | 2019-02-27 16:38 | PROGRESS NOTE ---
DATE: 02/27/2019 SUBJECTIVE: The patient has no major complaints but she is not eating basically refusing, not doing very much as far as getting up out the bed. OBJECTIVE: Blood pressure 100/50, heart rate of 82, respiratory 16, temperature 98.2 degrees, 99 percent on room air.Cardiovascular: Regular rate and rhythm. Pulmonary: Bilateral breath sounds clear to auscultation. GI: Soft, nontender, nondistended. Bowel sounds are positive. LABORATORY DATA: White count is 2, hemoglobin and hematocrit 8 and 25, platelets 105,000. Sodium 133, potassium 2.8, LDH 973. PROBLEM LIST: 1. Dehydration, acute kidney injury. She seems to be better. Continue to encourage p.o. intake. She is basically refusing to eat. 2. Non-small cell lung cancer, large pleural effusion. Radiology was able to remove about 200 mL of fluid. It does look exudative based on parameters. I agree with Dr. Ballesteros though most likely this is malignant and will need a PleurX catheterization but we can always consider that outpatient. 3. Pericardial effusion is stable. 4. Pancytopenia. Will continue to monitor. White count is stable, has not dropped further. We will continue to follow. 5. Hypokalemia. We will supplement and check magnesium level in the morning. cc: Brando Macario MD
--- NOTE | 2019-02-27 19:03 | GENERAL SURGERY PROGRESS NOTE ---
DATE: 02/27/2019 SUBJECTIVE: The patient complains of nausea, some diarrhea and dizziness. She denies shortness of breath, except when she gets up and walks. She currently does not have any oxygen on. OBJECTIVE: She is afebrile. Vital signs are stable.General: She is awake, alert and oriented x3, but appears weak. Respiratory: Decreased breath sounds in the left base. No increased work of breathing, though. CV: Regular rate and rhythm. Gastrointestinal: Soft, nontender, nondistended. LABORATORY DATA: Reviewed. ASSESSMENT AND PLAN: A 53-year-old female with metastatic small-cell lung cancer, left pleural effusion, pericardial effusion, nausea, diarrhea, poor oral intake and malnutrition. Currently I think her pressing issue is nutrition, and I have talked to her about considering a percutaneous endoscopic gastrostomy tube. She is going to talk to her family about this. For now we will hold off a PleurX catheter until or if she develops more significant symptoms that the PleurX catheter could actually relieve. We will follow along with you. cc: Alexis Felix MD
--- NOTE | 2019-02-27 22:05 | PULMONOLOGY PROGRESS NOTE ---
DATE: 02/27/2019 SUBJECTIVE: The patient has a flattened affect. She reports some nausea. She is having difficulty with p.o. intake, but did drink a supplement drink. OBJECTIVE: The patient has been afebrile for the last 24 hours. Blood pressure 106/69, heart rate 97, respiratory rate 18, oxygen saturation 93% on room air. HEENT: Pupils are equal and reactive. Oropharynx is clear. Neck is supple. Chest reveals decreased breath sounds, left base. Cardiac exam: S1, S2. Abdomen is soft. Extremities are without edema. LABORATORY DATA: White blood count 2.02, hemoglobin 8.7, platelet count 105,000. Sodium 133, potassium 2.8, chloride 100, bicarbonate 20, BUN 5, creatinine 0.8, glucose 73. IMPRESSION: 1. A 53-year-old with small-cell lung cancer, with progressive mediastinal adenopathy. 2. Large pleural effusion. 3. Pericardial effusion. 4. Failure to thrive. PLAN: 1. Encourage p.o. intake as tolerated. 2. Surgery is following. They will consider PleurX catheter if she becomes more symptomatic. 3. Prognosis is guarded to poor. cc: Lewis Ballesteros MD
[2019-02-28] MEDS: ZOSYN 3.375 GM in NS 50 ML IV SCH ×3 (03:23→16:43)
[2019-02-28] MEDS: HUMALOG SUBQ SCH ×5 (06:33→23:53)
[2019-02-28] MEDS: PROTONIX PO SCH (06:34)
[2019-02-28 07:54] LABS: BASO# 0.02 X1000 (0.0-0.2); BASO% 0.7 % (0.0-0.8); EOS# 0.01 X1000 (0.0-0.7); EOS% 0.4 % (0.0-10.0); HEMATOCRIT 29.6 % (37.0-47.0); IMM GRAN# 0.09 X1000 (0.0-0.04); IMM GRAN% 3.3 % (0.0-0.5); LYMPH% 33.2 % (20.5-51.1); MCH 35.8 PG (27-31); MCHC 33.8 g/dL (33-37); MCV 106.1 FL (81-99); MONO% 7.4 % (1.7-9.3); NEUT# 1.49 X1000 (1.4-6.5); PLT 109 X1000 (130-400); RBC 2.79 XMIL (4.2-5.4); RDW 14.9 % (11.5-14.5); WBC 2.71 X1000 (4.8-10.8)
--- NOTE | 2019-02-28 08:06 | GENERAL SURGERY PROGRESS NOTE ---
DATE: 02/28/2019 SUBJECTIVE: The patient reports some right lower abdominal pain this morning. She also continues to have difficulties with nausea. OBJECTIVE: Vital signs: She is afebrile. Vital signs are stable. General: She is awake and alert, no acute distress. Respiratory: No increased work of breathing but decreased breath sounds in the left base. GI: Soft, nondistended, hypoactive bowel sounds. She is tender in the right lower quadrant but without rebound or guarding. LABORATORY: Pending. ASSESSMENT AND PLAN: A 53-year-old female with metastatic small cell lung cancer, left pleural effusion, abdominal pain, nausea. We will get a CT scan of her abdomen and pelvis given the persistent nausea and now with right lower quadrant pain. She is considering a feeding tube to assist her with nutritional intake and we are considering PleurX catheter at some point if she becomes more symptomatic from her pleural effusion. cc: Alexis Felix MD
[2019-02-28 08:12] LABS: BANDS 10 % (0-1); LYMPHS 26 % (21-51); MONO 10 % (1-9); NRBC 2 % (0-0); SEGS 50 % (42-75)
[2019-02-28 08:22] LABS: AGAP 17; BUN 8 mg/dL (8-22); CALCIUM 11.4 mg/dL (8.8-10.2); CHLORIDE 98 mmol/L (98-107); COSMO 271; CREATININE 0.9 mg/dL (0.5-0.9); ESTIMATED GFR > 60; GLUCOSE 109 mg/dL (70-104); POTASSIUM 3.6 mmol/L (3.5-5.1); SODIUM 136 mmol/L (136-145); TCO2 21 mmol/L (25-35)
[2019-02-28] MEDS: ZOLOFT PO SCH (09:22)
[2019-02-28] MEDS: CARAFATE PO SCH ×3 (09:22→17:02)
[2019-02-28] MEDS: ZYRTEC PO SCH (09:22)
[2019-02-28] MEDS: MIRALAX PO SCH (09:23)
[2019-02-28] MEDS: ZOFRAN ODT PO SCH (09:23)
[2019-02-28] MEDS: VITAMIN B-12 SL SCH (09:23)
[2019-02-28] MEDS: MARINOL PO SCH (09:24)
[2019-02-28] MEDS: FOLIC ACID PO SCH (09:24)
[2019-02-28] MEDS: CULTURELLE PO SCH (09:24)
--- NOTE | 2019-02-28 10:41 | Diag Imaging Result Doc PS360 ---
CT ABD/PELVIS W/PO AND IV CON - 02/28/2019 INDICATION: right sided abdominal pain, nausea COMPARISON: CT chest 02/25/2019 FINDINGS: There is a moderate pericardial effusion. There is pericardial lymphadenopathy. There is a trace right and a small to moderate left pleural effusion. There are numerous masses throughout the liver compatible with metastases. There are enlarged avi hepatis lymph nodes. There are cholecystectomy clips. No biliary dilation. The pancreas, spleen, adrenals, and kidneys are normal. Trace ascites in the pelvis. No bowel obstruction or inflammation. Normal appendix. Urinary bladder, uterus, ovaries, and rectum are normal. There are several ill-defined sclerotic metastases throughout the spine and pelvis. No fractures. IMPRESSION: Widely metastatic cancer. This exam was performed using automated exposure control, adjustment of mA or kV according to patient size, and/or use of iterative reconstruction technique Electronically signed by Vasu Garvin 02/28/2019 10:39 AM
[2019-02-28] MEDS: PERCOCET-5 PO PRN (10:53)
[2019-02-28] MEDS ORDERED: ZOFRAN IV PRN (11:10)
[2019-02-28] MEDS: MORPHINE IV PRN (11:40)
[2019-02-28] MEDS: NS 1,000 ML IV SCH (11:42)
--- NOTE | 2019-02-28 11:51 | Diag Imaging Result Doc PS360 ---
CHEST-PORTABLE - 02/28/2019 INDICATION: dyspnea COMPARISON: 02/26/2019 FINDINGS: Stable left chest port in good position. Stable dense consolidation throughout the left midlung and lung base probably with a moderately large left pleural effusion. No mediastinal deviation. The right lung is clear with no right-sided pleural effusion. IMPRESSION: Stable dense opacification of the left lung base. Electronically signed by Vasu Garvin 02/28/2019 11:48 AM
--- NOTE | 2019-02-28 11:56 | Diag Imaging Result Doc PS360 ---
EXAM: ABDOMEN FLAT/UPRIGHT INDICATION: abdominal pain, nausea TECHNIQUE: 2 views COMPARISON: 01/25/2019 FINDINGS: There is contrast media in the small bowel in the tract related to a very recent CT. There are unremarkable bowel gas and stool patterns. There is no obstructive pattern. There is no evidence of large volume free abdominal gas. Multiple metallic clips project over the abdomen and pelvis. IMPRESSION: Unremarkable plain radiograph of the abdomen. Electronically signed by Hu Carmona 02/28/2019 11:54 AM
--- NOTE | 2019-02-28 13:37 | GASTROENTEROLOGY CONSULTATION ---
DATE: 02/28/2019 REASON FOR CONSULT: PEG tube. HISTORY OF PRESENT ILLNESS: Ms. Barclay is 53-year-old female with the history of small cell lung cancer, pancytopenia. She has been refusing to eat, and reluctant to speak. She was lying in bed, looked depressed, hopeless and showed no interest in anything. Patient has been on chemo and radiation therapy. PAST MEDICAL HISTORY: Small cell lung cancer, status post chemotherapy and radiation, nausea, vomiting, diarrhea, hypertension, anxiety, diabetes type 2, chronic back pain, restless legs syndrome. PAST SURGICAL HISTORY: She has had a surgical fusion of the neck, tummy tuck in 2016, cholecystectomy and tubal ligation. SOCIAL HISTORY: She is a former smoker. Denied any alcohol or drugs. Has an autistic son. FAMILY HISTORY: Mother has diabetes. Father had mesothelioma of the lungs. Sister has breast cancer. ALLERGIES: To latex. CURRENT MEDICATIONS: Home medications are Reglan 10 mg every 6 hours p.r.n., Zoloft 50 mg daily, Zyrtec 10 mg p.o. daily, Culturelle 1 capsule twice a day, MiraLAX 17 g p.o. daily, Protonix 40 mg daily, Carafate 1 g 4 times a day, Zofran 8 mg p.o. twice a day, Phenergan 25 mg every 6 hours as needed, Percocet 10/325 one tablet every 4 to 6 hours as needed. REVIEW OF SYSTEMS: As per HPI. Otherwise, 12 point review of systems is negative. PHYSICAL EXAMINATION: Vital Signs: Temperature 98.5 degrees, pulse is 97, respirations 18, blood pressure is 111/96, oxygen saturation is 100% on 2 L nasal cannula. Patient's weight is 189 pounds. BMI is 29.8 kg/m2. The patient is alert, oriented x 2, but is refusing to answer any questions and looks depressed. HEENT: Pale conjunctivae. No icterus. PERRL. Neck: Supple. Cardiovascular: Regular rate and rhythm. Lungs: Wheezing heard in the anterior gusman. Abdomen: Soft, distended, flabby, nontender. Active bowel sounds heard in all 4 quadrants. Extremities: No cyanosis, clubbing, or edema. Pedal pulses present bilaterally. Neurologic: Alert, oriented x2. Nonfocal. Cranial nerves 2-12 grossly intact. LABS: WBC 2.71, RBC 2.79, hemoglobin is 10.0, hematocrit is 29.6, and platelet count is 109,000. Sodium is 136, potassium 3.6, chloride 98, carbon dioxide 21, anion gap is 17, BUN is 8, creatinine is 0.9, glucose 109, calcium 11.4. Abdominal CT and pelvis showed widely metastatic cancer. Body nuclear scan showed vague increased uptake involving both femoral shafts that are nonspecific. IMPRESSION: 1. Small cell lung cancer. 2. Pancytopenia. 3. Dehydration. 4. Pneumonia. 5. Urinary tract infection. 6. Pericardial effusion. 7. Malnourished PLAN: The plan to put the PEG tube is on hold. We will continue with her GI prophylaxis protonix, culturelle, Carafate and miralax which the patient was already taking. We will continue to monitor her CBC, BMP, and follow the plan of care per PCP and oncologist. This plan was discussed with Dr. Yu. Thanks for your consult. Please call us for any further questions or concerns. Dictated by WINDY Morin for Wayne Yu MD Physician Attestation I have seen and examined the patient. I have discussed and reviewed the the note by Rebecca TEMPLE and agree with findings and plan as documented. In brief, Ms. Rita Barclay is a 53 year old woman with metastatic SCLC who presented for FTT and volume depletion and found to have malignant pericardial and pleural effusions, UTI, possible PNA, malnutrition, and pancytopenia. She has been off chemotherapy since December and recently admitted for immune-mediated colitis and poor functional status in 01/2019, now resolved GI is being consulted for possible PEG placement given poor oral intake. CT A/P today shows widespread metastatic disease and trace ascites. Her primarily oncologist, Dr. Jaffe, would like to hold off on any further evaluation for PEG tube placement at this time as she is not likely a candidate for further chemotherapy. In light if this, GI will sign off. Please call back with questions or concerns. MTDD
--- NOTE | 2019-02-28 14:02 | HEMO/ONC PROGRESS NOTE ---
DATE: 02/28/2019 SUBJECTIVE: Ms. Bacrlay is asleep this morning upon my entering the room. She does not awake easily to my voice, but she does to touch. She does not lift her head up at all, but she does answer questions. She appears very depressed. It is my understanding from nursing staff that she is refusing all food at this time. She states she just does not want to eat or drink. She still complains of nausea and abdominal pain and she states she is tired. OBJECTIVE: Vital signs: Temperature 98.5 degrees, pulse rate 97, respiratory rate 18, blood pressure 111/96, O2 saturation 100% on nasal cannula at 2 L. She is in 8/10 generalized pain. PHYSICAL EXAMINATION: General: Chronically ill-appearing female that appears to be unwell. Cardiovascular: Normal S1, S2. Heart rate and rhythm is regular. Respiratory: Respiratory effort appears normal. Patient is on O2 via nasal cannula. Lung sounds were diminished on the left side, but, otherwise, clear to auscultation. Abdomen: Soft. Lower abdominal tenderness. Bowel sounds are present. Skin: No petechiae, ecchymosis, or rashes. Skin is very dry. Neurological: Awake, alert, and oriented x3. She is slow to respond. No focal motor deficits noted otherwise. Psychiatric: Patient has a depressed affect. Lymphatic: Supraclavicular nodes are noted. They are tender, movable and soft. LABORATORY DATA: WBCs 2.71, hemoglobin 10.0, hematocrit 29.6, platelet count 809,000. Sodium 136, potassium 3.6, creatinine 0.9, calcium 11.4. Magnesium 1.8. RADIOLOGY: Chest x-ray: Stable, dense consolidation throughout the left mid lung and lung base with a moderately large left pleural effusion. Abdominal x-ray is unremarkable. Abdominal and pelvis CT: There is pericardial lymphadenopathy. There is trace right and small to moderate left pleural effusion. There are numerous masses throughout the liver compatible with metastasis. There are enlarged avi hepatic lymph nodes. There are several ill-defined, sclerotic metastasis throughout the spine and pelvis. No fractures. IMPRESSION: Widely metastatic cancer. ASSESSMENT AND PLAN: 1. Metastatic small cell lung cancer. The patient's immunotherapy has been on hold since December. This morning, abdomen and pelvis CT shows worsening metastatic disease. We are continuing to discuss with the patient for her to potentially begin utilizing comfort measures versus any further therapy in the clinic. At this time, we will continue to have these conversations with her. Her family is on board with pursuing hospice. 2. Dehydration and acute kidney injury. Her kidney function has improved with creatinine of 0.9 today. Continue fluids until the patient can actively take p.o. fluids. The patient has been refusing food. She has discussed with surgery the possibility of a feeding tubes. 3. Hypercalcemia. Patient's calcium continues to be elevated. However, her PTH intact is in normal range. It is possible the elevated calcium is due to bone metastasis as noted in CT abdomen and pelvis. 4. Pancytopenia. The patient's B12 and folate are being repleted. Her iron profile is adequate. Her anemia is most likely anemia of chronic disease. We are aware of her neutropenia and if it persists, we will consider using Neupogen. 5. Pericardial effusion. The patient's echocardiogram shows a pericardial effusion. It does not appear to be hemodynamically significant. We will continue to monitor. 6. Pleural effusion. The patient has undergone a CT-guided thoracentesis which removed approximately 200 mL of turbid orange fluid. The patient remains asymptomatic. Surgery is following along to potentially place a PleurX catheter as needed for worsening symptoms. 6. Persistent nausea and poor p.o. intake. Dictated by WINDY Seth for Yefri Casillas MD Patient seen and examined. I had a lengthy discussion with the patient and family. Patient is groogy and sleepy. Her disease is substantially worse. Check Brain imaging. Prognosis is poor. Discussed with Dr. Felix and Dr. Jenkins. She is not a good candidate for chemotherapy, hence we will holf of on PEG.. Encouraging hospice. Will continue discussions with patient. Family is understanding. yefri casillas MD cc: Yefri Casillas MD [facility]
[2019-02-28] MEDS ORDERED: AREDIA 90 MG in NS 1,000 ML IV ONE (18:15)
--- NOTE | 2019-02-28 18:23 | Diag Imaging Result Doc PS360 ---
CT HEAD W/WO CONTRAST - 02/28/2019 INDICATION: r/o brain mets; metastatic lung ca TECHNIQUE: COMPARISON: 01/19/2019 FINDINGS: The ventricles and sulci are normal in size and contour. No intracranial mass or hemorrhage. The skull is intact. The sinuses mastoids and middle ears are clear. There is no area of abnormal contrast enhancement. IMPRESSION: Negative exam. This exam was performed using automated exposure control, adjustment of mA or kV according to patient size, and/or use of iterative reconstruction technique Electronically signed by Vasu Garvin 02/28/2019 6:21 PM
[2019-02-28 18:49] LABS: URINE SOURCE CATH
[2019-02-28 18:54] LABS: BILIRUBIN URINE NEGATIVE (NEGATIVE); BLOOD URINE NEGATIVE (NEGATIVE); COLOR YELLOW; GLUCOSE URINE NEGATIVE (NEGATIVE); KETONE URINE TRACE mg/dL (NEGATIVE); LEUKOCYTES URINE NEGATIVE (NEGATIVE); NITRITE URINE NEGATIVE (NEGATIVE); PH URINE 6.5; PROTEIN URINE 30 mg/dL (NEGATIVE); TURBIDITY URINE CLEAR (CLEAR); UROBILINOGEN URINE NORMAL (NORMAL)
[2019-02-28 18:55] LABS: UR EPITHELIAL CELLS <10 /HPF (<10); URINE BACTERIA NEGATIVE /HPF; URINE RBC <10 /HPF (<10); URINE WBC <10 /HPF (<10)
--- NOTE | 2019-02-28 19:18 | PROGRESS NOTE ---
DATE: 02/28/2019 SUBJECTIVE: Patient has no major complaints. She is kind of drowsy again. OBJECTIVE: Vital signs: Blood pressure 90/66, heart rate of 87, respiratory rate of 18, temperature 98.2 degrees. Cardiovascular: Regular rate and rhythm. Pulmonary: Bilateral breath sounds clear to auscultation. Gastrointestinal: Soft, nontender, nondistended. Bowel sounds are positive. LABORATORY DATA: Her white count is 2, hemoglobin and hematocrit 10 and 29, platelets 109,000. Basic looked okay. Calcium is a bit high at 11.4 so maybe that is what is causing some of her confusion. PROBLEM LIST: 1. Dehydration, acute kidney injury seems to be better. She is doing okay. 2. Non-small cell lung cancer. She has a large pleural effusion. There was some discussion about a PleurX catheter and a feeding tube potentially per Dr. Vargas. I guess the patient refused to get a PEG placed despite Hem/Onc's wishes otherwise. I guess there is some discussion about pursuing hospice. I think that is actually fairly reasonable. She has hypercalcemia. She has an elevated calcium so I am going to put her on pamidronate, which I think is appropriate since this is likely hypercalcemia malignancy. So we will get, if we do not already have, a palliative care consult. We will go ahead and get 1 set up and follow. cc: Brando Macario MD
[2019-02-28 20:04] LABS: CALCIUM 11.3 mg/dL (8.8-10.2); PHOSPHORUS 2.1 mg/dL (2.7-4.5)
[2019-03-01] MEDS: ZOSYN 3.375 GM in NS 50 ML IV SCH ×5 (00:10→20:20)
[2019-03-01] MEDS: D5 NS 1,000 ML IV SCH ×2 (00:14→16:08)
[2019-03-01] MEDS: MARINOL PO SCH ×3 (00:14→20:21)
[2019-03-01] MEDS: CARAFATE PO SCH ×5 (00:14→20:21)
[2019-03-01] MEDS: CULTURELLE PO SCH ×3 (00:14→20:21)
[2019-03-01] MEDS: PROTONIX PO SCH (06:56)
[2019-03-01] MEDS: HUMALOG SUBQ SCH ×3 (06:56→20:21)
[2019-03-01 07:49] LABS: BASO# 0.02 X1000 (0.0-0.2); BASO% 0.8 % (0.0-0.8); EOS# 0.03 X1000 (0.0-0.7); EOS% 1.2 % (0.0-10.0); HEMATOCRIT 26.5 % (37.0-47.0); HEMOGLOBIN 8.7 g/dL (12.0-16.0); IMM GRAN# 0.09 X1000 (0.0-0.04); IMM GRAN% 3.7 % (0.0-0.5); LYMPH# 0.75 X1000 (1.2-3.4); LYMPH% 31.1 % (20.5-51.1); MCH 35.5 PG (27-31); MCHC 32.8 g/dL (33-37); MCV 108.2 FL (81-99); MONO% 8.3 % (1.7-9.3); MPV 8.7 FL (7.4-10.4); NEUT# 1.32 X1000 (1.4-6.5); NEUT% 54.9 % (42.2-75.2); PLT 93 X1000 (130-400); RBC 2.45 XMIL (4.2-5.4); RDW 15.2 % (11.5-14.5); WBC 2.41 X1000 (4.8-10.8)
[2019-03-01 08:29] LABS: BANDS 6 % (0-1); LYMPHS 26 % (21-51); MONO 4 % (1-9); NRBC 1 % (0-0); SEGS 64 % (42-75)
[2019-03-01 08:41] LABS: CALCIUM 11.9 mg/dL (8.8-10.2); CREATININE 1.1 mg/dL (0.5-0.9); POTASSIUM 3.4 mmol/L (3.5-5.1)
[2019-03-01] MEDS: ARIXTRA SUBQ SCH (11:27)
[2019-03-01] MEDS: ZYRTEC PO SCH (11:27)
[2019-03-01] MEDS: VITAMIN B-12 SL SCH (11:28)
[2019-03-01] MEDS: ZOLOFT PO SCH (11:28)
[2019-03-01] MEDS: FOLIC ACID PO SCH (11:28)
[2019-03-01] MEDS: MIRALAX PO SCH (11:29)
[2019-03-01] MEDS: MORPHINE IV PRN (12:51)
--- NOTE | 2019-03-01 12:51 | HEMO/ONC PROGRESS NOTE ---
DATE: 03/01/2019 SUBJECTIVE: The patient is asleep in her bed this morning. She has snoring respirations. She is somewhat difficult to arouse. She does not open her eyes during our conversation. She answers in short sentences. The patient states she fell last night and hurt her hip. She states her stomach is not hurting today. Her nausea is relieved. She continues to refuse food at this time; her breakfast is sitting next to her. She falls asleep mid conversation. OBJECTIVE: Vital Signs: Temperature 97.4 degrees, pulse rate 85, blood pressure 100/64, O2 saturation 98% on room air. She is in 0/10 pain. General: This is a chronically appearing female that appears to be well. Cardiovascular: Normal S1, S2. Heart rate and rhythm is regular. Respiratory: Respiratory effort is normal. She does have snoring respirations while she is asleep. Lung sounds remain diminished on the left side, but otherwise clear to auscultation. Abdomen: Soft. Lower abdominal tenderness. Bowel sounds are present but hypoactive. Skin: No petechiae, ecchymosis, or rashes noted. Skin remains very dry. Neurologic: The patient is somnolent. She is slow to respond. She does answer questions appropriately. Psychiatric: The patient has a depressed affect. Lymphatic: She has supraclavicular nodes that are tender, movable and soft. DIAGNOSTIC DATA: WBC 2.41, hemoglobin 8.7, hematocrit 26.5, platelet count 93,000. ANC 1.32. Ionized calcium was 1.69. Sodium 134, potassium 3.4, creatinine 1.1. Calcium 11.9. Phosphorus 2.1. Magnesium 1.8. Repeat PTH intact 54. RADIOLOGY: Head CT reveals a negative examination, no metastasis noted. ASSESSMENT AND PLAN: 1. Metastatic small cell lung cancer. The patient's disease has shown to be substantially worse. The patient does not have any brain mets at this time, but it does appear that she has liver metastasis. Her prognosis remains poor. Due to poor performance status the patient is not a good candidate for any further chemotherapy. We are encouraging hospice at this time with the patient and her family. The family is currently on board. We will get a palliative care consult today. 2. Dehydration and acute kidney injury. This has improved some. Her creatinine today is 1.1. Continue fluids until the patient can actively take p.o. fluids. We will continue to monitor. 3. Hypercalcemia. The patient's calcium level continues to be elevated, however, her PTH intact is in a normal range. Most likely hypercalcemia of malignancy. 4. Pancytopenia. The patient's B12 and folate are being repleted. Her iron profile is adequate. We are aware of her neutropenia and if it persists, we will consider using Neupogen. 5. Pericardial effusion. We are continuing to monitor this. It remains not hemodynamically significant. 6. Pleural effusion. The patient has undergone a CT-guided thoracentesis. She remains asymptomatic. We are continuing to monitor as is Surgery. She could potentially need a PleurX catheter if symptoms worsen. 7. Persistent nausea and poor p.o. intake. Dictated by WINDY Seth for Yefri Jaffe MD cc: Yefri Jaffe MD MTDD
--- NOTE | 2019-03-01 14:41 | GASTROENTEROLOGY PROGRESS NOTE ---
DATE: 03/01/2019 SUBJECTIVE: Patient resting in bed. She is refusing to eat. She had a liquid bowel movement today. She denies any new complaints. VITAL SIGNS: 97.4, pulse rate 85, respiratory rate of 18, blood pressure of 100/64, saturating 98% on room air, body weight 190 pounds, BMI 29.8 kg/m2. PHYSICAL EXAMINATION: General: Lying in bed in no acute distress. HEENT: Pale conjunctiva. No icterus. Neck: Supple. Abdomen: Soft, nontender, nondistended. Extremities: No cyanosis, clubbing. Neurologic: She is alert, awake, and answers all questions. LABORATORY: Hemoglobin and hematocrit is 8.7 and 26.5, white count of 2.41, platelet count of 93. Sodium 134, potassium 3.4, chloride 99, bicarbonate 22, creatinine 1.1, glucose of 87, calcium is 11.9. Urinalysis showing positive protein and trace ketones. Pleural fluid showing no growth. Sputum for Gram stain is 3+ white cells and 4+ epithelial cells. Urine culture showed mixed jose e, no growth. Blood cultures x2 negative on 02/20/2019. Head CT done yesterday showed negative exam. IMPRESSION AND PLAN: 1. Dehydration. 2. Acute kidney injury. 3. Non-small cell lung cancer. 4. Pleural effusion. 5. Pericardial effusion. 6. Decreased oral intake, failure to thrive. 7. 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 8. Hypercalcemia. RECOMMENDATIONS: She can continue on current management by the Primary Care team. She is on IV fluids. She is on Tylenol 1000 mg p.o. q.6 hours as needed. She is on albuterol ipratropium nebulizer treatment. She is getting cyanocobalamin sublingual. She is on Arixtra per the Primary care team for DVT prophylaxis. She is on Humalog sliding scale. She is on Reglan 10 mg p.o. q.6 hours as needed. She is also on IV pain control with morphine. She is on GI prophylaxis with PPI. She is on bowel regimen MiraLAX once daily. She had bowel movement today. She is also on antibiotics per the Primary Care team. She had 1 dose of pamidronate yesterday per Dr. Macario. DISPOSITION: The patient is in talks with Oncology team about possible hospice. We will sign off at this time. We will be available if needed. cc: MD Andre Rangel MD MTDD
[2019-03-01] MEDS ORDERED: POTASSIUM PHOSPHATE 40 MEQ in NS 250 ML IV ONE (14:53)
--- NOTE | 2019-03-01 17:09 | PROGRESS NOTE ---
DATE: 03/01/2019 SUBJECTIVE: Patient has no major complaints. She is kind of tired and weak. OBJECTIVE: Vital signs: Blood pressure is 118/71, heart rate of 90, temperature 97.5 degrees, respiratory rate of 18, although I do not have one from today. Cardiovascular: Regular rate and rhythm. Pulmonary: Bilateral breath sounds clear to auscultation. Gastrointestinal: Soft, nontender, nondistended. Bowel sounds are positive. LABORATORY DATA: White count is 2.4, hemoglobin and hematocrit 8 and 26, platelets of 93,000. Calcium is 11.9. Creatinine of 1.1. Potassium of 3.4. PROBLEM LIST: 1. Hypercalcemia of malignancy. We will continue treatment. She got a dose of pamidronate yesterday, I am almost positive, because I ordered it, and her calcium level is worse today, but in any case we will continue to follow. 2. Non-small cell lung cancer with recurrent pleural effusion. She is status post thoracentesis. She is not a candidate for decortication but she may require PleurX catheter. 3. Acute kidney injury. Pancytopenia. We will continue to monitor closely but with her overall disposition being poor and she is no longer able to get chemo because of her functional status, I anticipate we are looking at hospice. Palliative care consult is in place. I am working on hospice evaluation for her. Hopefully, it can be completed as an outpatient. cc: Brando Macario MD
[2019-03-02] MEDS: ZOSYN 3.375 GM in NS 50 ML IV SCH ×4 (01:31→22:21)
[2019-03-02] MEDS: D5 NS 1,000 ML IV SCH ×3 (02:23→13:07)
--- NOTE | 2019-03-02 05:20 | PULMONOLOGY PROGRESS NOTE ---
DATE: 03/01/2019 SUBJECTIVE: The patient is somnolent but arousable. Family and friends are at the bedside. She is withdrawn. OBJECTIVE: Vital Signs: The patient has been afebrile for the last 24 hours. Blood pressure 102/67, heart rate 101, respiratory rate 15, and oxygen saturation 96% on 2 L per nasal cannula. HEENT: Pupils are equal and reactive. Oropharynx appears clear. Neck: Supple. Lungs: Chest reveals decreased breath sounds in the left hemithorax. Cardiac: S1 and S2. Abdomen: Soft. Extremities: Reveals trace to 1+ peripheral edema. IMPRESSION: A 53-year-old with the followin. Small cell lung cancer with progressive disease. 2. Hypercalcemia with possible related encephalopathy. 3. Pericardial effusion. 4. Failure to thrive. PLAN: 1. Continue to treat hypercalcemia. 2. Hospice being considered given widely metastatic disease throughout the abdomen making her a poor candidate for a PEG tube placement. cc: Lewis Ballesteros MD
[2019-03-02] MEDS: HUMALOG SUBQ SCH ×3 (06:52→11:14)
[2019-03-02] MEDS: PROTONIX PO SCH (06:53)
[2019-03-02 08:23] LABS: BASO# 0.06 X1000 (0.0-0.2); BASO% 3.2 % (0.0-0.8); EOS# 0.01 X1000 (0.0-0.7); EOS% 0.5 % (0.0-10.0); HEMATOCRIT 29.6 % (37.0-47.0); HEMOGLOBIN 10.3 g/dL (12.0-16.0); IMM GRAN# 0.07 X1000 (0.0-0.04); IMM GRAN% 3.7 % (0.0-0.5); LYMPH# 0.56 X1000 (1.2-3.4); LYMPH% 29.5 % (20.5-51.1); MCH 38.1 PG (27-31); MCHC 34.8 g/dL (33-37); MCV 109.6 FL (81-99); MONO# 0.14 X1000 (0.11-0.59); MONO% 7.4 % (1.7-9.3); MPV 9.1 FL (7.4-10.4); NEUT# 1.06 X1000 (1.4-6.5); NEUT% 55.7 % (42.2-75.2); PLT 88 X1000 (130-400); RDW 15.2 % (11.5-14.5)
[2019-03-02 08:33] LABS: CALCIUM 10.8 mg/dL (8.8-10.2); POTASSIUM 3.1 mmol/L (3.5-5.1)
[2019-03-02] MEDS: MIRALAX PO SCH (08:33)
[2019-03-02] MEDS: ARIXTRA SUBQ SCH (08:35)
[2019-03-02] MEDS: ZOLOFT PO SCH (08:35)
[2019-03-02] MEDS: FOLIC ACID PO SCH (08:35)
[2019-03-02] MEDS: ZYRTEC PO SCH (08:35)
[2019-03-02] MEDS: CULTURELLE PO SCH (08:35)
[2019-03-02] MEDS: CARAFATE PO SCH (08:35)
[2019-03-02] MEDS: VITAMIN B-12 SL SCH (08:35)
[2019-03-02] MEDS: MARINOL PO SCH (09:00)
[2019-03-02 09:07] LABS: BANDS 4 % (0-1); LYMPHS 32 % (21-51); MONO 4 % (1-9); SEGS 60 % (42-75)
--- NOTE | 2019-03-02 14:25 | HEMO/ONC PROGRESS NOTE ---
DATE: 03/02/2019 SUBJECTIVE: The patient remains rather lethargic, lying in her bed. She has not been attempting to get up at all. She is arousable somewhat to conversate but answers in short sentences. She denies any complaints. OBJECTIVE: VITAL SIGNS: Temperature 98.3 degrees, pulse rate 103, respiratory rate 17, blood pressure 108/76, O2 saturation 100% on room air. She is in 0/10 pain. PHYSICAL EXAMINATION: General: She is a chronically ill female, appears to be unwell. Cardiovascular: Normal S1, S2. Heart rate and rhythm is tachycardic. Respiratory: She continues to have diminished breath sounds on the left side, otherwise very clear to auscultation. Normal respiratory effort. Abdomen: Soft. Lower abdominal tenderness. Hypoactive bowel sounds. Skin: No petechiae, ecchymosis, or rashes. Her skin remains dry and pale. Neurologic: The patient is somnolent. She is slow to respond. She does answer questions appropriately. Psychiatric: The patient has a depressed affect. Lymphatic: She has supraclavicular nodes that are tender, movable and soft. LABORATORY DATA: WBCs 1.9, hemoglobin 10.3, hematocrit 29.6, platelet count 88,000. ANC 1.06. Sodium 134, potassium 3.1, creatinine 1.0, calcium 10.8. RADIOLOGY: No new radiology. ASSESSMENT: 1. Metastatic small cell lung cancer. The patient's disease is shown to be substantially worse. Her prognosis remains poor as does her performance status. She is not a good candidate to pursue any further chemotherapy. She and the family are meeting with hospice today. 2. Dehydration and acute kidney injury. The patient's creatinine is 1.0. This has increased. Continue encouragement of p.o. fluids. 3. Hypercalcemia. This is most likely hypercalcemia of malignancy. She has had 1 dose of pamidronate. 4. Pancytopenia. We are aware of the patient's neutropenia. We will continue to monitor as an outpatient. 5. Pericardial effusion. We are continuing to monitor this. It remains not hemodynamically significant. 6. Pleural effusion. The patient has undergone a CT-guided thoracentesis. She remains asymptomatic. Surgery is monitoring and may potentially insert a PleurX catheter if symptoms worsen. 7. Persistent nausea and poor per oral intake. Dictated by WINDY Seth for Yefri Jaffe MD cc: Yefri Jaffe MD [facility]
--- NOTE | 2019-03-02 15:14 | PROGRESS NOTE ---
DATE: 03/02/2019 SUBJECTIVE: Patient has no major complaints. OBJECTIVE: Vital signs: Blood pressure 108/76, heart rate of 103, respiratory rate is 17, temperature 98.3 degrees, 100% on room air. Cardiovascular: Regular rate and rhythm. Pulmonary: Bilateral breath sounds clear to auscultation. Gastrointestinal: Soft, nontender, nondistended. Bowel sounds were positive. LABORATORY DATA: Her white count is 1.9, hemoglobin and hematocrit 10 and 29 with an MCV of 109 and platelet count of 88,000. Potassium is 3.1, calcium is down to 10.8. PROBLEM LIST: 1. Hypercalcemia of malignancy. She was placed on pamidronate and her calcium actually got a little worse but it is better today, so we will continue to follow. 2. Non-small cell lung cancer with recurrent pleural effusion. I am not really convinced any of this has really been related to anything else but progression in her cancer unfortunately, and her procalcitonin level was a little bit elevated but not much. She has had antibiotics during her course without really much improvement. She has been on Zosyn since the so it has been over 7 days. I discussed with the family I do not anticipate we are going to discharge her on any antibiotics. At this point, the family has agreed to and the patient to hospice and we will continue to monitor. They are setting up things at home. Anticipate discharge tomorrow with hospice. cc: Brando Macario MD
[2019-03-02] MEDS: MORPHINE IV PRN (15:15)
[2019-03-03] MEDS: ZOSYN 3.375 GM in NS 50 ML IV SCH ×2 (02:14→09:42)
[2019-03-03] MEDS: D5 NS 1,000 ML IV SCH (03:24)
[2019-03-03 08:00] VITALS: BP 147/72
[2019-03-03] MEDS: MIRALAX PO SCH (09:42)
--- NOTE | 2019-03-30 11:13 | DISCHARGE SUMMARY ---
ADMISSION DATE: 02/20/2019 DISCHARGE DATE: 03/03/2019 DISCHARGE DIAGNOSES: 1. Hypercalcemia of malignancy. 2. Non-small cell lung cancer with recurrent pleural effusion. 3. Dehydration. 4. Acute kidney injury. 5. Pancytopenia. 6. Pericardial effusion. 7. Failure to thrive. CONSULTATIONS: 1. Dr. Ballesteros, Pulmonary. 2. Dr. Jaffe, Hematology/Oncology. 3. Dr. Yu, GI. 4. Dr. Padilla, General Surgery. PROCEDURES: I believe she had thoracentesis. HOSPITAL COURSE: Briefly, this is a 54-year-old female admitted on the per Dr. Saucedo with history of small-cell. She was getting chemotherapy and radiation, felt to be nausea and vomiting. She had pneumonia, UTI. She was placed on antibiotics. Chest CT was obtained, which showed worsening adenopathy, pericardial effusion, left pleural effusion. It is not really clear that the patient had true pneumonia versus just progression in her disease. She was also hypercalcemic. Echo was obtained. EF is 65%. She had a small effusion. Overall, she had improved. There was consideration for PleurX catheter. Dr. Felix was consulted for evaluation but there was not enough of an effusion to do anything instrumentation greene. She never really completely recovered. She really did not want to get up and around. She was just stabilizing from that standpoint. Chest CT showed fluid collections. She did undergo an ultrasound with fluid that was removed. They recommended a PleurX catheter. Her nuclear scan showed possible metastatic foci. The patient was never really motivated to eat very much or get up or participate. She kind of continued to deteriorate. CT showed wide metastatic and then patient stabilized. Dr. Jaffe had discussions. Because of her poor performance status, she would not be able to participate in anymore chemotherapy. Further discussion with the family and she was discharged to hospice, I believe [facility]. DISCHARGE MEDICATIONS: 1. Reglan 10 q.6. 2. Oxycodone 10 q.4. 3. Phenergan p.r.n. 4. Zofran 8 b.i.d. 5. Zoloft 50 daily. 6. Carafate 1 g q.i.d. 7. MiraLAX 17 daily. 8. Protonix 40 daily. 9. Zyrtec 10 daily. Again will be further managed by the hospice providers. Thirty-two minute discharge. cc: MD Yefri Moreland MD
== END 2019-03-03 10:20 | disposition hospice, home (50) | DRG 180 ==
LOC: SUATTDRO 17:24 → DIRADM 17:24 → 3N 20:00
PROVIDERS: ATTEND Internal Medicine